=== PATIENT | female | born 1935 | race Caucasian/White ===

== ENCOUNTER 2017-07-08 14:40 | Observation (INO) | payer MEDICARE, BC ==
[2017-07-08] MEDS ORDERED: Sodium Chloride 0.9% 5 ML Syringe FLUSH PRN (14:50)
--- NOTE | 2017-07-08 15:06 | EDM.PDOC ---
ED HPI GENERAL MEDICAL PROBLEM - General Chief Complaint: Upper Extremity Injury/Pain Stated Complaint: left arm pain Time Seen by Provider: 07/08/17 14:50 Source of Information: Reports: Patient History Limitations: Reports: No Limitations - History of Present Illness INITIAL COMMENTS - FREE TEXT/NARRATIVE: PT STATES AT APPROX 0600 TODAY SHE DEVELOPED LEFT UPPER EXTREMITY DISCOMFORT THAT HAS PERSISTED ALL DAY. TOOK BP AND NOTICED IT WAS ELEVATE AT 180'S SYSTOLIC. CALL EMS AND WAS TRANSPORTED TO ER. EMS STRIP SHOWS PACEMAKER. DENIES CP, SOB, BAY, N/V, ABD PAIN, NECK PAIN OR TRAUMA. ADMITS TO EXCESSIVE CLEANING AND VACUUMING YESTERDAY. Duration: Hour(s): Location: Reports: Upper Extremity, Left Quality: Reports: Ache Severity: Mild Improves with: Reports: None Worsens with: Reports: None Associated Symptoms: Reports: No Other Symptoms Treatments COUNTER TENDER: Reports: Aspirin Left Arm Pain Score (Numeric/FACES): 3 - Related Data Allergies Allergy/AdvReac Type Severity Reaction Status Date / Time Anesthetics - Lucy Type- Allergy Edema Verified 07/08/17 14:56 Parabens [Anesthetics - Lucy Type] hydromorphone HCl Allergy Lightheaded Verified 07/08/17 14:56 [From Dilaudid] ness prochlorperazine edisylate Allergy Bronchospas Verified 07/08/17 14:56 [From Compazine] ms prochlorperazine maleate Allergy Bronchospas Verified 07/08/17 14:56 [From Compazine] ms propoxyphene HCl Allergy Nausea and Verified 07/08/17 14:56 [From Darvon] Vomiting Home Meds: Home Meds Aspirin [Ecotrin] 325 mg PO DAILY 05/02/14 [History] Calcium Carbonate/Vitamin D3 [Calcium 500-Vit D3 200 Tablet] 1 tab PO DAILY [History] Cyclobenzaprine [Flexeril] 10 mg PO DAILY PRN 05/02/14 [History] Furosemide [Lasix] 40 mg PO DAILY 05/02/14 [History] Lisinopril 20 mg PO DAILY 05/02/14 [History] Multivitamin [One Daily Multivitamin] 1 tab PO DAILY 05/02/14 [History] Omeprazole 20 mg PO DAILY 05/02/14 [History] Promethazine [Phenergan] 0.2 ml TOP ASDIRECTED PRN 05/02/14 [History] oxyCODONE HCl/Acetaminophen [Percocet 5-325 mg Tablet] 1 tab PO DAILY PRN [History] Morphine PF [Infumorph] 6.117 mg ITHECAL DAILY 05/03/14 [History] Carvedilol [Coreg] 3.125 mg PO BID 05/06/14 [History] LORazepam [Ativan] 0.25 mg PO TID PRN #30 tablet 05/09/14 [Rx] Potassium Chloride [Klor-Con 10] 10 meq PO DAILY 07/08/17 [History] Social & Family History - Alcohol Use Days Per Week of Alcohol Use: 0 - Recreational Drug Use Recreational Drug Use: No Review of Systems - Review of Systems Review Of Systems: ROS reveals no pertinent complaints other than HPI. Constitutional: Reports: No Symptoms Eyes: Reports: No Symptoms Ears: Reports: No Symptoms Nose: Reports: No Symptoms Mouth/Throat: Reports: No Symptoms Respiratory: Reports: No Symptoms GI/Abdominal: Reports: No Symptoms 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: Reports: No Symptoms Musculoskeletal: Reports: Arm Pain Skin: Reports: No Symptoms Neurological: Reports: No Symptoms Psychiatric: Reports: No Symptoms ED EXAM, GENERAL - Physical Exam Exam: See Below Exam Limited By: No Limitations General Appearance: Alert, WD/WN, No Apparent Distress Eye Exam: Bilateral Eye: Normal Inspection Nose: Normal Inspection, Normal Mucosa, No Blood Throat/Mouth: Normal Inspection, Normal Oropharynx, No Airway Compromise Head: Atraumatic, Normocephalic Neck: Normal Inspection, Supple, Full Range of Motion Respiratory/Chest: No Respiratory Distress, Lungs Clear, Normal Breath Sounds, No Accessory Muscle Use, Chest Non-Tender Cardiovascular: Normal Peripheral Pulses, Regular Rate, Rhythm, No JVD, No Murmur GI/Abdominal: Normal Bowel Sounds, Soft, Non-Tender, No Organomegaly, No Distention, No Abnormal Bruit, No Mass Back Exam: Normal Inspection. No: CVA Tenderness (L), CVA Tenderness (R) Extremities: Normal Inspection, Normal Range of Motion, Non-Tender, Pedal Edema (BILAT 2+ OF CHRONIC NATURE) Neurological: Alert, Oriented, CN II-XII Intact, Normal Cognition, No Motor/ Sensory Deficits Psychiatric: Normal Affect, Normal Mood Skin Exam: Warm, Dry, Intact, Normal Color, No Rash Lymphatic: No Adenopathy EKG INTERPRETATION EKG Date: 07/08/17 Time: 14:50 Comparison: No Change EKG Interpretation Comments: paced rythm Course - Vital Signs Last Recorded V/S: Last Vital Signs Temp 99.2 F 07/08/17 14:47 Pulse 91 07/08/17 14:47 Resp 20 07/08/17 14:47 BP 171/63 H 07/08/17 14:47 Pulse Ox 94 L 07/08/17 14:47 - Orders/Labs/Meds Orders: Active Orders 24 hr Category Date Time Status Cardiac Monitoring [RC] . DIRECTED Care 07/08/17 14:50 Ordered EKG Documentation Completion [RC] ASDIRECTED Care 07/08/17 14:51 Ordered Peripheral IV Care [RC] . DIRECTED Care 07/08/17 14:51 Ordered Chest 1V Frontal [CR] Stat Exams 07/08/17 14:51 Ordered B-TYPE NATRIURETIC PEPTIDE,BNP [CHEM] Stat Lab 07/08/17 14:50 Ordered CBC WITH AUTO DIFF [HEME] Stat Lab 07/08/17 14:50 Ordered COMPREHENSIVE METABOLIC PN,CMP [CHEM] Stat Lab 07/08/17 14:51 Ordered INR,PT,PROTHROMBIN TIME [COAG] Stat Lab 07/08/17 14:50 Ordered MAGNESIUM [CHEM] Stat Lab 07/08/17 14:50 Ordered PTT,PARTIAL THROMBOPLSTIN TIME [COAG] Stat Lab 07/08/17 14:50 Ordered TROPONIN I [CHEM] Stat Lab 07/08/17 14:50 Ordered Sodium Chloride 0.9% [Syrex Flush] Med 07/08/17 14:50 Ordered 5 ml FLUSH Q8HR PRN Peripheral IV Insertion Adult [OM.PC] Stat Oth 07/08/17 14:50 Ordered EKG 12 Lead [EK] Stat Ther 07/08/17 14:51 Ordered - Radiology Interpretation Free Text/Narrative:: CXR SHOWS NODULE IN LEFT LUNG BUT HAS BEEN ADDRESSED WITH CT IN APRIL 2017 - Re-Assessments/Exams Free Text/Narrative Re-Assessment/Exam: 07/08/17 16:07 PT AFEBRILE, NONTOXIC APPEARING, VSS, NO CHEST PAIN AND LUE DISCOMFORT MOSTLY RESOLVED. DISCUSSED CASE WITH DR CRAIG. WILL ADMIT INPATIENT AND FOLLOW Departure - Departure Time of Disposition: 16:08 Disposition: Admitted As Inpatient 64 Condition: Good Clinical Impression: Elevated troponin level Chest pain Qualifiers: Chest pain type: unspecified Qualified Code(s): R07.9 - Chest pain, unspecified - Discharge Information Referrals: Erin Marcus MD [Primary Care Provider] - - My Orders Last 24 Hours: My Active Orders 07/08/17 14:50 Cardiac Monitoring [RC] . DIRECTED B-TYPE NATRIURETIC PEPTIDE,BNP [CHEM] Stat CBC WITH AUTO DIFF [HEME] Stat INR,PT,PROTHROMBIN TIME [COAG] Stat MAGNESIUM [CHEM] Stat PTT,PARTIAL THROMBOPLSTIN TIME [COAG] Stat TROPONIN I [CHEM] Stat Sodium Chloride 0.9% [Syrex Flush] 5 ml FLUSH Q8HR PRN Peripheral IV Insertion Adult [OM.PC] Stat 07/08/17 14:51 EKG Documentation Completion [RC] ASDIRECTED Peripheral IV Care [RC] . DIRECTED Chest 1V Frontal [CR] Stat COMPREHENSIVE METABOLIC PN,CMP [CHEM] Stat EKG 12 Lead [EK] Stat - Assessment/Plan Last 24 Hours: My Active Orders 07/08/17 14:50 Cardiac Monitoring [RC] . DIRECTED B-TYPE NATRIURETIC PEPTIDE,BNP [CHEM] Stat CBC WITH AUTO DIFF [HEME] Stat INR,PT,PROTHROMBIN TIME [COAG] Stat MAGNESIUM [CHEM] Stat PTT,PARTIAL THROMBOPLSTIN TIME [COAG] Stat TROPONIN I [CHEM] Stat Sodium Chloride 0.9% [Syrex Flush] 5 ml FLUSH Q8HR PRN Peripheral IV Insertion Adult [OM.PC] Stat 07/08/17 14:51 EKG Documentation Completion [RC] ASDIRECTED Peripheral IV Care [RC] . DIRECTED Chest 1V Frontal [CR] Stat COMPREHENSIVE METABOLIC PN,CMP [CHEM] Stat EKG 12 Lead [EK] Stat Assessment:: CHEST PAIN / ELEVATED TROPONIN Plan: ADMIT INPATIENT
[2017-07-08 15:40] LABS: CHLORIDE,CL 106 mmol/L (98-115); SODIUM,NA 141 mmol/L (136-145)
--- NOTE | 2017-07-08 19:16 | PCM.HP ---
H&P History of Present Illness - General Date of Service: 07/08/17 Admit Problem/Dx: Admission Diagnosis/Problem Admission Diagnosis/Problem Elevated troponin Source of Information: Patient, Old Records History Limitations: Reports: No Limitations - History of Present Illness Initial Comments - Free Text/Narative: Mrs. Clemens is an 82yoF with a history significant for chronic systolic and diastolic heart failure, hx bradycardia s/p pacemaker placement, HTN, HLD, obesity, and chronic back and shoulder pain secondary to osteoarthritis, who was in her usual state of health until this morning when she noticed dull left upper extremity pain. Due to feeling so well the past few days, she had been doing quite a bit of housework, including scrubbing the floors and vacuuming. She is ambidextrous and uses both hands fairly evenly. After awakening and starting her day, she noticed a "dull ache" in her left arm and forearm that was 2-3/10 in severity. She thought this was probably because she overdid it the day before, but then took her blood pressure and noticed it was around 160 systolic and became a bit anxious. Because she and her don't drive much , she initially thought she could wait until their son, who lives with them, got home. After thinking some more, she became a bit more anxious and decided to call 911 and was subsequently transported to the [facility] ED for evaluation. In the ED, she was noted to have an initially elevated BP at 161/81 but otherwise normal VS, EKG showing a paced rhythm, and work-up was notable for a mildly elevated troponin at 0.10. CXR noted the previously known left lung nodule and hypoventilatory changes, but no acute abnormality. She was given ASA 324mg and IV placed. Left Arm Pain Score (Numeric/FACES): 1 - Related Data Allergies/Adverse Reactions: Allergies Allergy/AdvReac Type Severity Reaction Status Date / Time Anesthetics - Lucy Type- Allergy Edema Verified 07/08/17 14:56 Parabens [Anesthetics - Lucy Type] hydromorphone HCl Allergy Lightheaded Verified 07/08/17 14:56 [From Dilaudid] ness prochlorperazine edisylate Allergy Bronchospas Verified 07/08/17 14:56 [From Compazine] ms prochlorperazine maleate Allergy Bronchospas Verified 07/08/17 14:56 [From Compazine] ms propoxyphene HCl Allergy Nausea and Verified 07/08/17 14:56 [From Darvon] Vomiting Home Medications: Home Meds Aspirin [Ecotrin] 325 mg PO DAILY 05/02/14 [History] Calcium Carbonate/Vitamin D3 [Calcium 500-Vit D3 200 Tablet] 1 tab PO DAILY [History] Cyclobenzaprine [Flexeril] 10 mg PO DAILY PRN 05/02/14 [History] Furosemide [Lasix] 40 mg PO DAILY 05/02/14 [History] Lisinopril 20 mg PO DAILY 05/02/14 [History] Multivitamin [One Daily Multivitamin] 1 tab PO DAILY 05/02/14 [History] Omeprazole 20 mg PO DAILY PRN 05/02/14 [History] Promethazine [Phenergan] 0.2 ml TOP ASDIRECTED PRN 05/02/14 [History] oxyCODONE HCl/Acetaminophen [Percocet 5-325 mg Tablet] 1 tab PO DAILY PRN [History] Morphine PF [Infumorph] 6.117 mg ITHECAL DAILY 05/03/14 [History] Carvedilol [Coreg] 3.125 mg PO DAILY 05/06/14 [History] LORazepam [Ativan] 0.25 mg PO TID PRN #30 tablet 05/09/14 [Rx] Potassium Chloride [Klor-Con 10] 10 meq PO DAILY 07/08/17 [History] Past Medical History HEENT History: Reports: Cataract, Impaired Vision Cardiovascular History: Reports: Heart Failure, Hypertension, Pacemaker Gastrointestinal History: Reports: Chronic Constipation, GERD Musculoskeletal History: Reports: Arthritis, Back Pain, Chronic, Osteoarthritis , Osteoporosis Hematologic History: Reports: Blood Transfusion(s) - Infectious Disease History Infectious Disease History: Reports: Chicken Pox, Measles, Mumps, Pertussis ( Whooping Cough), Rubella, Scarlet Fever, Shingles - Past Surgical History Cardiovascular Surgical History: Reports: Other (See Below) Other Cardiovascular Surgeries/Procedures: PACEMAKER GI Surgical History: Reports: Appendectomy, Cholecystectomy, Colonoscopy Female Surgical History: Reports: Hysterectomy Musculoskeletal Surgical History: Reports: Hip Replacement, Knee Replacement, Shoulder Replacement Other Musculoskeletal Surgeries/Procedures:: REVERSE SHOULDERS, BACK SURGERIES x3 Social & Family History - Family History Other Family History: Mother of a blood clot. Father of a heart attack. Sister of CLL and multiple myeloma. 1 brother of congenital heart disease. 1 brother of an aortic aneurysm. 4 children healthy. - Tobacco Use Smoking Status *Q: Never Smoker - Caffeine Use Caffeine Use: Reports: Coffee - Alcohol Use Days Per Week of Alcohol Use: 0 - Recreational Drug Use Recreational Drug Use: No H&P Review of Systems - Review of Systems: Review Of Systems: See Below General: Denies: Fever, Chills, Malaise, Weakness, Fatigue, Decreased Appetite, Weight Loss, Weight Gain HEENT: Reports: Post Nasal Drip (nightly for the past few weeks), Sinus Congestion (nightly for the past few weeks). Denies: Headaches, Visual Changes Pulmonary: Denies: Shortness of Breath, Pleuritic Chest Pain, Cough, Sputum, Hemoptysis Cardiovascular: Denies: Chest Pain, Palpitations, Dyspnea on Exertion, Edema, Lightheadedness Gastrointestinal: Denies: Abdominal Pain, Constipation, Diarrhea, Decreased Appetite, Nausea, Vomiting 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: Denies: Dysuria, Frequency Musculoskeletal: Reports: Neck Pain (chronic, bilateral), Shoulder Pain (chronic , bilateral), Back Pain (chronic, diffuse). Denies: Hand Pain Skin: Reports: No Symptoms Psychiatric: Denies: Confusion, Depression, Anxiety Neurological: Denies: Dizziness, Headache, Numbness, Paresthesia, Trouble Speaking, Difficulty Walking, Weakness, Change in Speech, Gait Disturbance Hematologic/Lymphatic: Reports: No Symptoms Immunologic: Reports: No Symptoms Exam - Exam Exam: See Below - Vital Signs Vital Signs: Last Vital Signs Temp 37.2 C 07/08/17 16:15 Pulse 87 07/08/17 16:15 Resp 18 07/08/17 16:15 BP 146/57 H 07/08/17 16:15 Pulse Ox 92 L 07/08/17 16:15 Weight: 79.832 kg - Exam General: Alert, Oriented, Cooperative HEENT: Conjunctiva Clear, EOMI, Hearing Intact, Mucosa Moist & [place], Nares Patent, Pupils Equal, Pupils Reactive, Other (Mild postnasal drip) Neck: Supple, Trachea Midline. No: Lymphadenopathy, JVD Lungs: Normal Respiratory Effort, Other (CTAB except for mildly decreased breath sounds in the POLI). No: Crackles, Rales, Rhonchi, Wheezing Cardiovascular: Regular Rate, Regular Rhythm, Normal S1, Normal S2, Systolic Murmur (1/6 systolic murmur loudest at LUSB without radiation) GI/Abdominal Exam: Normal Bowel Sounds, Soft, Non-Tender Back Exam: Normal Inspection Extremities: Normal Inspection, No Pedal Edema, Normal Capillary Refill Peripheral Pulses: 2+: Radial (L), Radial (R), Posterior Tibial (L), Posterior Tibial (R), Dorsalis Pedis (L), Dorsalis Pedis (R) Skin: Warm, Dry, Intact, Other (Pacemaker in place in left upper chest. Well healed incisions of back and abdomen.). No: Rash Neurological: Other (No focal deficits) Psychiatric: Alert, Normal Affect, Normal Mood - Patient Data Result Diagrams: 07/08/17 15:00 07/08/17 15:00 EKG INTERPRETATION EKG Interpretation Comments: EKG from EMS and ED reviewed showing paced rhythm. *Q Meaningful Use (ADM) - VTE *Q VTE Criteria *Q: - Stroke *Q Stroke Criteria *Q: - AMI *Q AMI Criteria *Q: Problem List Initiated/Reviewed/Updated: Yes Orders Last 24hrs: Active Orders 24 hr Category Date Time Status Patient Status [ADT] Routine ADT 07/08/17 17:41 Ordered Up With Assistance [RC] ASDIRECTED Care 07/08/17 18:50 Ordered Heart Healthy Diet [DIET] Diet 07/09/17 Breakfast Ordered TROPONIN I [CHEM] Routine Lab 07/08/17 21:00 Ordered Aspirin [Ecotrin] Med 07/09/17 09:00 Ordered 325 mg PO DAILY Calcium Carbonate/Vitamin D3 [Calcium 500-Vit D3 200 Med 07/09/17 09:00 Ordered Tablet] 1 tab PO DAILY Carvedilol [Coreg] Med 07/09/17 09:00 Ordered 3.125 mg PO DAILY Furosemide [Lasix] Med 07/09/17 09:00 Ordered 40 mg PO DAILY Lisinopril [Lisinopril] Med 07/09/17 09:00 Ordered 20 mg PO DAILY Morphine PF [Infumorph] Med 07/09/17 09:00 Ordered 6.117 mg ITHECAL DAILY Multivitamin [One Daily Multivitamin] Med 07/09/17 09:00 Ordered 1 tab PO DAILY Potassium Chloride [Klor-Con 10] Med 07/09/17 09:00 Ordered 10 meq PO DAILY Medication Orders Non-Formulary Medication (Aspirin [Ecotrin]) 325 mg PO DAILY KAROL Non-Formulary Medication (Calcium Carbonate/Vitamin D3 [Calcium 500-Vit D3 200 Tablet]) 1 tab PO DAILY KAROL Non-Formulary Medication (Carvedilol [Coreg]) 3.125 mg PO DAILY KAROL Non-Formulary Medication (Furosemide [Lasix]) 40 mg PO DAILY KAROL Non-Formulary Medication (Lisinopril [Lisinopril]) 20 mg PO DAILY KAROL Non-Formulary Medication (Morphine Pf [Infumorph]) 6.117 mg ITHECAL DAILY KAROL Non-Formulary Medication (Multivitamin [One Daily Multivitamin]) 1 tab PO DAILY KAROL Non-Formulary Medication (Potassium Chloride [Klor-Con 10]) 10 meq PO DAILY KAROL Sodium Chloride (Syrex Flush) 5 ml FLUSH Q8HR PRN PRN Reason: Keep Vein Open Assessment/Plan Comment:: Mrs. Clemens is an 82yoF with a history significant for chronic systolic and diastolic heart failure, hx bradycardia s/p pacemaker placement, HTN, obesity, and chronic back and shoulder pain secondary to osteoarthritis being admitted for elevated troponin. Hospitalization problems: # Elevated troponin: Initial troponin 0.10. EKG with paced rhythm. Presentation with dull LUE pain. She has no history of CAD, but has risk factors of heart failure, HTN, HLD, and obesity. COOKIE score = 2 (age and ASA use). DDx includes NSTEMI, demand ischemia in the setting of hypertension, or less likely recent increased exertion resulting in elevated enzymes. She has no evidence of heart failure, respiratory symptoms to suggest pulmonary-induced non-coronary ischemia , or other precipitants of myocardial injury without ischemia. Will trend troponin q6h and monitor on telemetry. Continue ASA, BB, and ACEI. # LUE pain: Onset approximately 12 hours ago. DDx favors atypical chest pain related to NSTEMI vs. musculoskeletal pain in the setting of recent overuse and chronic osteoarthritis of the neck, back, and shoulders. She now states it is 1/ 10 in intensity and declines therapy. # HTN: Initially elevated in the 160s systolic, but now maintained in the 140s/ 50s. Continue BB, ACEI, furosemide. # Sinus congestion: Likely related to seasonal allergies, with symptoms present every evening for the past several weeks. Declines therapy at this time. Chronic conditions: # Chronic systolic and diastolic heart failure: Fluid neutral with no evidence of acute exacerbation. Continue outpatient medications. # Hx bradycardia s/p pacemaker placement: EKG with appropriate pacing. Continue on telemetry. # Chronic musculoskeletal pain: Continue morphine pump. Hospitalization details: # FEN: No IVF. Electrolytes normal; continue KCl. Cardiac diet. # PPX: DVT ppx with ambulation. # Code status: FULL CODE. # Emergency contact: Cooper Clemens, . # Disposition: Admit to observation status. If troponin downtrends an no acute concerns arise, anticipate discharge tomorrow morning.
[2017-07-09 06:35] VITALS: BP 113/57
[2017-07-09] MEDS ORDERED: Multivitamins with Minerals/Iron/Folic Acid/Lycopene Tab PO SCH (09:00)
[2017-07-09] MEDS ORDERED: [UNRECOGNIZED DRUG - REMARK] ITHECAL SCH (09:00)
[2017-07-09] MEDS ORDERED: Potassium Chloride 10 MEQ Tab.ER PO SCH (09:00)
[2017-07-09] MEDS ORDERED: Furosemide 40 MG Tab PO SCH (09:00)
[2017-07-09] MEDS ORDERED: Carvedilol 6.25 MG Tab PO SCH (09:00)
[2017-07-09] MEDS ORDERED: Calcium Citrate/Vitamin D3 315 MG-250 Unit Tab PO SCH (09:00)
[2017-07-09] MEDS ORDERED: Aspirin 325 MG Tab.EC PO SCH (09:00)
[2017-07-09] MEDS ORDERED: Lisinopril 20 MG Tab PO SCH (09:00)
--- NOTE | 2017-07-09 11:47 | PCM.DCSUM1 ---
Discharge Summary - Hospital Course Free Text/Narrative:: Mrs. Clemens is an 82-year-old female with a history significant for chronic systolic and diastolic heart failure, history of bradycardia status post pacemaker placement, hypertension, hyperlipidemia, obesity, and chronic back and shoulder pain secondary to osteoarthritis, who presented to the emergency department with left arm pain for which evaluation was notable for a mildly elevated troponin at 0.10 and she was admitted under observation status for trending and cardiac monitoring. Other evaluation and workup was notable for an EKG with paced rhythm, chest x-ray without acute change, and no evidence of heart failure or respiratory symptoms to suggest pulmonary-induced non-coronary ischemia. She has a strong history of chronic musculoskeletal pain of her neck , back, and bilateral shoulders for which she is on a continuous morphine pump and she admitted to increase use of her bilateral arms in the 2 days prior to presentation. Troponin was trended every 6 hours and noted to decrease to the normal range x2. She denied any left upper extremity or chest pain following admission and she stated she was in her usual state of health on the morning of discharge. Telemetry was without abnormalities. She was continued on aspirin, beta merlin, and DENI inhibitor. She has a prior intolerance of statins and declined starting this during her hospitalization. - Discharge Data Discharge Date: 07/09/17 Discharge Disposition: Home, Self-Care 01 Condition: Good - Patient Instructions Diet: Heart Healthy Diet Activity: As Tolerated Showering/Bathing: May Shower Notify Provider of: Increased Pain, Nausea and/or Vomiting Other/Special Instructions: Call the clinic Tuesday to schedule follow-up with Gardenia or myself next week. If arm pain, chest pain, shortness of breath, or other concerns arise, come into the clinic or emergency department sooner. - Discharge Plan Home Medications: Home Meds Aspirin [Ecotrin] 325 mg PO DAILY 05/02/14 [History] Calcium Carbonate/Vitamin D3 [Calcium 500-Vit D3 200 Tablet] 1 tab PO DAILY [History] Cyclobenzaprine [Flexeril] 10 mg PO DAILY PRN 05/02/14 [History] Furosemide [Lasix] 40 mg PO DAILY 05/02/14 [History] Lisinopril 20 mg PO DAILY 05/02/14 [History] Multivitamin [One Daily Multivitamin] 1 tab PO DAILY 05/02/14 [History] Omeprazole 20 mg PO DAILY PRN 05/02/14 [History] Promethazine [Phenergan] 0.2 ml TOP ASDIRECTED PRN 05/02/14 [History] oxyCODONE HCl/Acetaminophen [Percocet 5-325 mg Tablet] 1 tab PO DAILY PRN [History] Morphine PF [Infumorph] 6.117 mg ITHECAL DAILY 05/03/14 [History] Carvedilol [Coreg] 3.125 mg PO DAILY 05/06/14 [History] LORazepam [Ativan] 0.25 mg PO TID PRN #30 tablet 05/09/14 [Rx] Potassium Chloride [Klor-Con 10] 10 meq PO DAILY 07/08/17 [History] Forms: ED Department Discharge Referrals: Gardenia Franco NP [Nurse Practitioner] - Erin Marcus MD [Primary Care Provider] - - Discharge Summary/Plan Comment DC Time >30 min.: Yes Discharge Summary/Plan Comment: Continue home medications without changes as well as heart healthy diet. Follow-up with Dr. Erin Marcus, Gardenia Franco, YUSUF, or myself in 5-7 days. Outpatient recommendations: Consider statin initiation and stress test. Discussed return precautions, including recurrent left upper extremity or chest pain, shortness of breath, or other concerning symptoms. - General Info Subjective Update: Mrs. Clemens states she feels great this morning and has no concerns. She denies any current pain and also states that she has not had the onset of any untoward symptoms since admission. In particular, she denies any fever, chest pain, shortness of breath, palpitations. - Patient Data Vitals - Most Recent: Last Vital Signs Temp 36.6 C 07/09/17 06:35 Pulse 63 07/09/17 06:35 Resp 18 07/09/17 06:35 BP 113/57 L 07/09/17 06:35 Pulse Ox 94 L 07/09/17 06:35 Weight - Most Recent: 79.832 kg I&O - Last 24 hours: Intake & Output 07/08/17 07/09/17 07/09/17 22:59 06:59 14:59 Intake Total 100 150 Output Total 300 Balance -200 150 Lab Results - Last 24 hrs: Laboratory Results - last 24 hr 07/08/17 07/09/17 Range/Units 21:30 07:00 Creatine Kinase 75 (26-276) U/L CK-MB (CK-2) 1.10 (0.00-4.30) ng/mL Troponin I 0.07 0.07 (0.00-0.070) ng/mL Med Orders - Current: Current Medications Discontinued Medications Aspirin (Ecotrin) 325 mg PO DAILY [facility] Calcium Citrate (Calcium Citrate + D) 2 tab PO DAILY [facility] Carvedilol (Coreg) 3.125 mg PO DAILY KAROL Furosemide (Lasix) 40 mg PO DAILY [facility] Lisinopril (Prinivil) 20 mg PO DAILY [facility] Multivitamins/Minerals (Centrum) 1 tab PO DAILY [facility] Non-FormMorphine Pf [Infumorph] 6. 117 Mg) 6.117 mg ITHECAL DAILY [facility] Potassium Chloride (Klor-Con 10) 10 meq PO DAILY [facility] Sodium Chloride (Syrex Flush) 5 ml FLUSH Q8HR PRN PRN Reason: Keep Vein Open *Q Meaningful Use (DIS) - VTE *Q VTE Criteria *Q: - Stroke *Q Stroke Criteria *Q: - AMI *Q AMI Criteria *Q:
== END 2017-07-09 10:35 | disposition home or self-care (01) ==
LOC: KA.ED 14:40 → KA.MS 16:09 → INTOOBSV 16:09
PROVIDERS: ADMIT Physician Assistant Surgical; ATTEND Family Medicine
DX: M79.602 Pain in left arm (principal); R79.89 Other specified abnormal findings of blood chemistry; I11.0 Hypertensive heart disease with heart failure; I50.42 Chronic combined systolic (congestive) and diastolic (congestive) heart failure; G89.29 Other chronic pain; M79.1 Myalgia; E78.5 Hyperlipidemia, unspecified; E66.9 Obesity, unspecified; M19.019 Primary osteoarthritis, unspecified shoulder; M81.0 Age-related osteoporosis without current pathological fracture; K21.9 Gastro-esophageal reflux disease without esophagitis; Z79.82 Long term (current) use of aspirin; Z79.899 Other long term (current) drug therapy; Z88.4 Allergy status to anesthetic agent; Z88.5 Allergy status to narcotic agent; Z88.8 Allergy status to other drugs, medicaments and biological substances; Z95.0 Presence of cardiac pacemaker; Z90.49 Acquired absence of other specified parts of digestive tract; Z90.710 Acquired absence of both cervix and uterus; Z96.619 Presence of unspecified artificial shoulder joint; Z96.649 Presence of unspecified artificial hip joint; Z96.659 Presence of unspecified artificial knee joint; Z98.890 Other specified postprocedural states
CPT/HCPCS: 36415; 71010; 80053; 81001; 82550; 82553; 83735; 83880; 84484; 85025; 85610; 85730; 93005; 99284; G0378

== ENCOUNTER 2017-07-22 00:35 | Emergency (ER) | payer MEDICARE, BC ==
--- NOTE | 2017-07-22 01:24 | EDM.PDOC ---
ED HPI GENERAL MEDICAL PROBLEM - General Chief Complaint: Respiratory Problem Stated Complaint: SOB Time Seen by Provider: 07/22/17 00:59 Source of Information: Reports: Patient History Limitations: Reports: No Limitations - History of Present Illness INITIAL COMMENTS - FREE TEXT/NARRATIVE: Patient presents via ambulance for evaluation after an episode of dyspnea that started about 1.5 hours ago and lasted 20 minutes then resolved spontaneously. She had gone to bed a little before 2200 and then awoke a little before midnight feeling short of breath. She got up and went to the bathroom. She denies any chest pain or heaviness, arm, shoulder, neck or jaw pain, diaphoresis , lightheadedness, vision changes. She says she had arm pain about two weeks ago and came in to ER. Everything checked out okay. She has a pacemaker that was placed 10 months ago, but denies any history of ND, stents or other heart disease. Earlier today she had a pre-op physical for cataract surgery next week. She is feeling completely normal now for the past hour. The symptoms had resolved before the ambulance arrived but she decided she wanted to come in to get checked out since they were there. - Related Data Allergies Allergy/AdvReac Type Severity Reaction Status Date / Time Anesthetics - Lucy Type- Allergy Edema Verified 07/22/17 01:06 Parabens [Anesthetics - Lucy Type] hydromorphone HCl Allergy Lightheaded Verified 07/22/17 01:06 [From Dilaudid] ness prochlorperazine edisylate Allergy Bronchospas Verified 07/22/17 01:06 [From Compazine] ms prochlorperazine maleate Allergy Bronchospas Verified 07/22/17 01:06 [From Compazine] ms propoxyphene HCl Allergy Nausea and Verified 07/22/17 01:06 [From Darvon] Vomiting Home Meds: Home Meds Aspirin [Ecotrin] 325 mg PO DAILY 05/02/14 [History] Calcium Carbonate/Vitamin D3 [Calcium 500-Vit D3 200 Tablet] 1 tab PO DAILY [History] Cyclobenzaprine [Flexeril] 10 mg PO DAILY PRN 05/02/14 [History] Furosemide [Lasix] 40 mg PO DAILY 05/02/14 [History] Lisinopril 20 mg PO DAILY 05/02/14 [History] Multivitamin [One Daily Multivitamin] 1 tab PO DAILY 05/02/14 [History] Omeprazole 20 mg PO DAILY PRN 05/02/14 [History] Promethazine [Phenergan] 0.2 ml TOP ASDIRECTED PRN 05/02/14 [History] Morphine PF [Infumorph] 6.117 mg ITHECAL DAILY 05/03/14 [History] Carvedilol [Coreg] 3.125 mg PO DAILY 05/06/14 [History] LORazepam [Ativan] 0.25 mg PO TID PRN #30 tablet 05/09/14 [Rx] Potassium Chloride [Klor-Con 10] 10 meq PO DAILY 07/08/17 [History] Past Medical History HEENT History: Reports: Cataract, Impaired Vision Cardiovascular History: Reports: Heart Failure, Hypertension, Pacemaker Gastrointestinal History: Reports: Chronic Constipation, GERD 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 History: Reports: None 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: Musculoskeletal History: Reports: Arthritis, Back Pain, Chronic, Osteoarthritis , Osteoporosis Hematologic History: Reports: Blood Transfusion(s) - Infectious Disease History Infectious Disease History: Reports: Chicken Pox, Measles, Mumps, Pertussis ( Whooping Cough), Rubella, Scarlet Fever, Shingles - Past Surgical History Cardiovascular Surgical History: Reports: Other (See Below) Other Cardiovascular Surgeries/Procedures: PACEMAKER GI Surgical History: Reports: Appendectomy, Cholecystectomy, Colonoscopy Female Surgical History: Reports: Hysterectomy Musculoskeletal Surgical History: Reports: Hip Replacement, Knee Replacement, Shoulder Replacement Other Musculoskeletal Surgeries/Procedures:: REVERSE SHOULDERS, BACK SURGERIES x3 Social & Family History - Tobacco Use Smoking Status *Q: Never Smoker - Caffeine Use Caffeine Use: Reports: Coffee - Alcohol Use Days Per Week of Alcohol Use: 0 - Recreational Drug Use Recreational Drug Use: No ED ROS GENERAL - Review of Systems Review Of Systems: See Below Constitutional: Reports: Fatigue. Denies: Fever, Chills, Malaise, Weakness, Diaphoresis HEENT: Denies: Vision Change Respiratory: Reports: Shortness of Breath (gone now). Denies: Cough Cardiovascular: Denies: Chest Pain, Edema, Lightheadedness, Syncope GI/Abdominal: Denies: Abdominal Pain, Nausea, Vomiting : Denies: Dysuria Musculoskeletal: Denies: Neck Pain, Shoulder Pain, Arm Pain, Back Pain Skin: Denies: Cyanosis, Jaundice, Mottled, Pallor, Diaphoresis Neurological: Denies: Confusion, Dizziness, Headache, Seizure, Syncope Psychiatric: Denies: Agitation, Anxiety, Confusion ED EXAM, GENERAL - Physical Exam Exam: See Below Exam Limited By: No Limitations General Appearance: Alert, WD/WN, No Apparent Distress Eye Exam: Bilateral Eye: EOMI, Normal Inspection, PERRL Ears: Normal External Exam, Hearing Grossly Normal Nose: Normal Inspection, No Blood Throat/Mouth: Normal Lips, Normal Voice, No Airway Compromise Head: Atraumatic, Normocephalic Neck: Normal Inspection, Supple, Non-Tender, Full Range of Motion. No: Carotid Bruit Respiratory/Chest: No Respiratory Distress, Lungs Clear, Normal Breath Sounds, No Accessory Muscle Use Cardiovascular: Normal Peripheral Pulses, Regular Rate, Rhythm, No Murmur Peripheral Pulses: 2+: Carotid (L), Carotid (R), Radial (L), Radial (R), Posterior Tibial (L), Posterior Tibial (R) GI/Abdominal: Normal Bowel Sounds, Soft, Non-Tender, No Organomegaly Back Exam: No: CVA Tenderness (L), CVA Tenderness (R) Extremities: Normal Inspection, Normal Range of Motion, Non-Tender, No Pedal Edema, Normal Capillary Refill, Other (no calf pain or swelling) Neurological: Alert, Oriented, Normal Cognition, No Motor/Sensory Deficits Psychiatric: Normal Affect, Normal Mood Skin Exam: Warm, Dry, Intact, Normal Color, No Rash Course - Vital Signs Last Recorded V/S: Last Vital Signs Temp 98.5 F 07/22/17 01:20 Pulse 85 07/22/17 01:20 Resp 16 07/22/17 01:20 BP 142/56 H 07/22/17 01:20 Pulse Ox 91 L 07/22/17 01:20 - Orders/Labs/Meds Orders: Active Orders 24 hr Category Date Time Status EKG Documentation Completion [RC] ASDIRECTED Care 07/22/17 01:27 Ordered EKG 12 Lead [EK] Routine Ther 07/22/17 01:26 Ordered Labs: Laboratory Tests 07/22/17 07/22/17 Range/Units 01:50 01:50 WBC 4.6 L (5.0-10.0) 10^3/uL RBC 4.23 (3.80-5.50) 10^6/uL Hgb 13.1 (12.0-16.0) g/dL Hct 38.2 (37.0-47.0) % MCV 90.2 (82.0-92.0) fL MCH 31.0 (27.0-31.0) pg MCHC 34.3 (32.0-36.0) g/dL RDW 13.0 (11.5-14.5) % Plt Count 163 (150-300) 10^3/uL MPV 8.9 (7.4-10.4) fL Neut % (Auto) 49.9 L (50.0-70.0) % Lymph % (Auto) 33.3 (20.0-40.0) % [place] % (Auto) 11.7 H (2.0-8.0) % Eos % (Auto) 4.1 H (1.0-3.0) % Baso % (Auto) 1.0 (0.0-1.0) % Neut # (Auto) 2.4 L (2.5-7.0) 10^3/uL Lymph # (Auto) 1.5 (1.0-4.0) 10^3/uL [place] # (Auto) 0.5 (0.1-0.8) 10^3/uL Eos # (Auto) 0.2 (0.1-0.3) 10^3/uL Baso # (Auto) 0.0 (0.0-0.1) 10^3/uL Sodium 142 (136-145) mmol/L Potassium 4.9 (3.3-5.3) mmol/L Chloride 104 (98-115) mmol/L Carbon Dioxide 33.2 H (21.0-32.0) mmol/L BUN 26 H (6-25) mg/dL Creatinine 0.86 (0.51-1.17) mg/dL Est Cr Clr Drug Dosing 34.98 mL/min Estimated GFR (MDRD) > 60 mL/min Glucose 138 H (70-110) mg/dL Calcium 9.0 (8.7-10.3) mg/dL Troponin I 0.08 H* (0.00-0.070) ng/mL - Re-Assessments/Exams Free Text/Narrative Re-Assessment/Exam: 07/22/17 02:43 EKG is okay. CBC okay. Troponin is 0.08, compared with 0.1, 0.07, 0.07 two weeks ago. She is feeling well and has had no episodes of dyspnea or any other symptoms for the two hours in the ER. Discussed findings and plan with patient. Discharged in stable condition. Departure - Departure Time of Disposition: 02:42 Disposition: Home, Self-Care 01 Condition: Good Clinical Impression: Dyspnea Qualifiers: Dyspnea type: unspecified Qualified Code(s): R06.00 - Dyspnea, unspecified - Discharge Information Forms: ED Department Discharge Additional Instructions: 1. Follow up with your PCP or return to ER if any worsening. - My Orders Last 24 Hours: My Active Orders 07/22/17 01:26 EKG 12 Lead [EK] Routine 07/22/17 01:27 EKG Documentation Completion [RC] ASDIRECTED - Assessment/Plan Last 24 Hours: My Active Orders 07/22/17 01:26 EKG 12 Lead [EK] Routine 07/22/17 01:27 EKG Documentation Completion [RC] ASDIRECTED
[2017-07-22 02:29] LABS: CHLORIDE,CL 104 mmol/L (98-115); SODIUM,NA 142 mmol/L (136-145)
[2017-07-22 04:28] VITALS: BP 137/50
== END 2017-07-22 02:50 | disposition home or self-care (01) ==
LOC: KA.ED 00:35
DX: R06.00 Dyspnea, unspecified (principal); I11.0 Hypertensive heart disease with heart failure; I50.9 Heart failure, unspecified; K21.9 Gastro-esophageal reflux disease without esophagitis; M19.90 Unspecified osteoarthritis, unspecified site; M81.0 Age-related osteoporosis without current pathological fracture; Z95.0 Presence of cardiac pacemaker; Z79.899 Other long term (current) drug therapy; Z88.8 Allergy status to other drugs, medicaments and biological substances; Z79.82 Long term (current) use of aspirin; Z90.49 Acquired absence of other specified parts of digestive tract; Z90.89 Acquired absence of other organs; Z90.710 Acquired absence of both cervix and uterus
CPT/HCPCS: 36415; 80048; 84484; 85025; 93005; 99284; 99285

== ENCOUNTER 2017-08-10 09:55 | Emergency (ER) | payer MEDICARE, BC ==
[2017-08-10 10:50] LABS: CHLORIDE,CL 105 mmol/L (98-115); SODIUM,NA 142 mmol/L (136-145)
[2017-08-10] MEDS ORDERED: Sodium Chloride 0.9% 1,000 ML IV ONE (11:10)
--- NOTE | 2017-08-10 11:54 | EDM.PDOC ---
ED HPI GENERAL MEDICAL PROBLEM - General Chief Complaint: General Stated Complaint: idon't feel good Time Seen by Provider: 08/10/17 10:30 Source of Information: Reports: Patient History Limitations: Reports: No Limitations - History of Present Illness INITIAL COMMENTS - FREE TEXT/NARRATIVE: PT STATES SHE WOKE THIS MORNING NOT FEELING WELL. NOT WELL DESCRIBED. HAD PIECE OF TOST BUT FELT NAUSEOUS SHORTLY AFTER. DID NOT VOMIT. CALLED [facility] AND WAS TOLD THEY COULD GET HER IN THIS AFTERNOON TO BE SEEN. SUGGESTED ER SO THEY CALLED 911. DENIES CP, SOB, COUGH, BAY, VISION CHANGES, ABD PAIN, BOWEL CHANGES OR DYSURIA. Duration: Hour(s): Quality: Reports: Other (DENIES PAIN) Improves with: Reports: None Worsens with: Reports: None Associated Symptoms: Reports: Nausea/Vomiting - Related Data Allergies Allergy/AdvReac Type Severity Reaction Status Date / Time Anesthetics - Lucy Type- Allergy Edema Verified 07/22/17 01:06 Parabens [Anesthetics - Lucy Type] hydromorphone HCl Allergy Lightheaded Verified 07/22/17 01:06 [From Dilaudid] ness prochlorperazine edisylate Allergy Bronchospas Verified 07/22/17 01:06 [From Compazine] ms prochlorperazine maleate Allergy Bronchospas Verified 07/22/17 01:06 [From Compazine] ms propoxyphene HCl Allergy Nausea and Verified 07/22/17 01:06 [From Darvon] Vomiting novacaine Allergy Swollen Uncoded 08/10/17 10:30 Tongue Home Meds: Home Meds Aspirin [Ecotrin] 325 mg PO DAILY 05/02/14 [History] Calcium Carbonate/Vitamin D3 [Calcium 500-Vit D3 200 Tablet] 1 tab PO DAILY [History] Cyclobenzaprine [Flexeril] 10 mg PO DAILY PRN 05/02/14 [History] Furosemide [Lasix] 40 mg PO DAILY 05/02/14 [History] Multivitamin [One Daily Multivitamin] 1 tab PO DAILY 05/02/14 [History] Omeprazole 20 mg PO DAILY PRN 05/02/14 [History] Promethazine [Phenergan] 0.2 ml TOP ASDIRECTED PRN 05/02/14 [History] Morphine PF [Infumorph] 6.117 mg ITHECAL DAILY 05/03/14 [History] Carvedilol [Coreg] 3.125 mg PO DAILY 05/06/14 [History] LORazepam [Ativan] 0.25 mg PO TID PRN #30 tablet 05/09/14 [Rx] Potassium Chloride [Klor-Con 10] 10 meq PO DAILY 07/08/17 [History] Lisinopril [Lisinopril] 5 mg PO DAILY 08/10/17 [History] Magnesium Oxide [Magnesium] 400 mg PO DAILY 08/10/17 [History] Promethazine [Phenergan] 0.5 ml TOP ASDIRECTED 08/10/17 [History] Past Medical History HEENT History: Reports: Cataract, Impaired Vision Cardiovascular History: Reports: Arrhythmia, Heart Failure, Hypertension, Pacemaker Respiratory History: Reports: Other (See Below) Other Respiratory History: nodule in chest Gastrointestinal History: Reports: Chronic Constipation, GERD 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 History: Reports: 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: Musculoskeletal History: Reports: Arthritis, Back Pain, Chronic, Osteoarthritis , Osteoporosis Psychiatric History: Reports: Anxiety Hematologic History: Reports: Blood Transfusion(s) - Infectious Disease History Infectious Disease History: Reports: Chicken Pox, Measles, Mumps, Pertussis ( Whooping Cough), Rubella, Scarlet Fever, Shingles - Past Surgical History Cardiovascular Surgical History: Reports: Other (See Below) Other Cardiovascular Surgeries/Procedures: PACEMAKER Respiratory Surgical History: Reports: Lung Biopsies GI Surgical History: Reports: Appendectomy, Cholecystectomy, Colonoscopy Female Surgical History: Reports: Hysterectomy Neurological Surgical History: Reports: Other (See Below) Other Neurological Surgeries/Procedures: back surgery Musculoskeletal Surgical History: Reports: Hip Replacement, Knee Replacement, Shoulder Replacement Other Musculoskeletal Surgeries/Procedures:: REVERSE SHOULDERS, BACK SURGERIES x3 Social & Family History - Tobacco Use Smoking Status *Q: Never Smoker Second Hand Smoke Exposure: No - Caffeine Use Caffeine Use: Reports: Coffee - Alcohol Use Days Per Week of Alcohol Use: 0 - Recreational Drug Use Recreational Drug Use: No ED ROS GENERAL - Review of Systems Review Of Systems: ROS reveals no pertinent complaints other than HPI. Constitutional: Reports: No Symptoms HEENT: Reports: No Symptoms Respiratory: Reports: No Symptoms Cardiovascular: Reports: No Symptoms Endocrine: Reports: Fatigue GI/Abdominal: Reports: Nausea : Reports: No Symptoms Musculoskeletal: Reports: No Symptoms Skin: Reports: No Symptoms Neurological: Reports: No Symptoms Psychiatric: Reports: No Symptoms Hematologic/Lymphatic: Reports: No Symptoms Immunologic: Reports: No Symptoms ED EXAM, GENERAL - Physical Exam Exam: See Below Exam Limited By: No Limitations General Appearance: Alert, WD/WN, No Apparent Distress Eye Exam: Bilateral Eye: Normal Inspection Nose: Normal Inspection, Normal Mucosa, No Blood Throat/Mouth: Normal Inspection, Normal Oropharynx, No Airway Compromise Head: Atraumatic, Normocephalic Neck: Normal Inspection, Supple Respiratory/Chest: No Respiratory Distress, Lungs Clear, Normal Breath Sounds, No Accessory Muscle Use, Chest Non-Tender Cardiovascular: Regular Rate, Rhythm, No Murmur GI/Abdominal: Normal Bowel Sounds, Soft, Non-Tender, No Organomegaly, No Distention, No Abnormal Bruit, No Mass Back Exam: Normal Inspection. No: CVA Tenderness (L), CVA Tenderness (R) Extremities: Normal Inspection, No Pedal Edema Neurological: Alert, Oriented, CN II-XII Intact, Normal Cognition, No Motor/ Sensory Deficits Psychiatric: Normal Affect, Normal Mood Skin Exam: Warm, Dry, Intact, Normal Color, No Rash Lymphatic: No Adenopathy Course - Vital Signs Last Recorded V/S: Last Vital Signs Temp 99.2 F 08/10/17 10:00 Pulse 89 08/10/17 10:00 Resp 18 08/10/17 10:00 BP 159/59 H 08/10/17 10:00 Pulse Ox 94 L 08/10/17 10:00 - Orders/Labs/Meds Orders: Active Orders 24 hr Category Date Time Status Sodium Chloride 0.9% @ 999 MLS/HR (1000ml) Med 08/10/17 11:10 Ordered Sodium Chloride 0.9% [Normal Saline] 1,000 ml IV .BOLUS Medication Orders Sodium Chloride (Normal Saline) 1,000 mls @ 999 mls/hr IV .BOLUS ONE Stop: 08/10/17 12:10 Last Admin: 08/10/17 11:17 Dose: 999 mls/hr Labs: Laboratory Tests 08/10/17 08/10/17 08/10/17 Range/Units 10:20 10:20 10:20 WBC 4.3 L (5.0-10.0) 10^3/uL RBC 4.57 (3.80-5.50) 10^6/uL Hgb 13.8 (12.0-16.0) g/dL Hct 41.7 (37.0-47.0) % MCV 91.4 (82.0-92.0) fL MCH 30.2 (27.0-31.0) pg MCHC 33.0 (32.0-36.0) g/dL RDW 13.0 (11.5-14.5) % Plt Count 164 (150-300) 10^3/uL MPV 9.0 (7.4-10.4) fL Neut % (Auto) 54.3 (50.0-70.0) % Lymph % (Auto) 33.6 (20.0-40.0) % [place] % (Auto) 7.7 (2.0-8.0) % Eos % (Auto) 4.0 H (1.0-3.0) % Baso % (Auto) 0.4 (0.0-1.0) % Neut # (Auto) 2.4 L (2.5-7.0) 10^3/uL Lymph # (Auto) 1.4 (1.0-4.0) 10^3/uL [place] # (Auto) 0.3 (0.1-0.8) 10^3/uL Eos # (Auto) 0.2 (0.1-0.3) 10^3/uL Baso # (Auto) 0.0 (0.0-0.1) 10^3/uL Sodium 142 (136-145) mmol/L Potassium 3.9 (3.3-5.3) mmol/L Chloride 105 (98-115) mmol/L Carbon Dioxide 29.1 (21.0-32.0) mmol/L BUN 19 (6-25) mg/dL Creatinine 0.77 (0.51-1.17) mg/dL Est Cr Clr Drug Dosing TNP Estimated GFR (MDRD) > 60 mL/min Glucose 130 H (70-110) mg/dL Calcium 8.8 (8.7-10.3) mg/dL Total Bilirubin 0.3 (0.2-1.0) mg/dL AST 29 (15-37) U/L ALT 26 (12-78) U/L Alkaline Phosphatase 78 (46-116) IU/L Troponin I 0.04 (0.00-0.070) ng/mL Total Protein 7.2 (6.4-8.2) g/dL Albumin 3.63 (3.00-4.80) g/dL Specimen Type Urine Color (YELLOW) Urine Appearance (CLEAR) Urine pH (5.0-9.0) Ur Specific [place] (1.005-1.030) Urine Protein (NEGATIVE) mg/dL Urine Glucose (UA) (NEGATIVE) mg/dL Urine Ketones (NEGATIVE) mg/dL Urine Occult Blood (NEGATIVE) Urine Nitrite (NEGATIVE) Urine Bilirubin (NEGATIVE) Urine Urobilinogen (0.2-1.0) E.U./dL Ur Leukocyte Esterase (NEGATIVE) Urine RBC /HPF Urine WBC /HPF Ur Epithelial Cells /LPF Urine Bacteria (NONE TO FEW) /HPF 08/10/17 Range/Units 10:44 WBC (5.0-10.0) 10^3/uL RBC (3.80-5.50) 10^6/uL Hgb (12.0-16.0) g/dL Hct (37.0-47.0) % MCV (82.0-92.0) fL MCH (27.0-31.0) pg MCHC (32.0-36.0) g/dL RDW (11.5-14.5) % Plt Count (150-300) 10^3/uL MPV (7.4-10.4) fL Neut % (Auto) (50.0-70.0) % Lymph % (Auto) (20.0-40.0) % [place] % (Auto) (2.0-8.0) % Eos % (Auto) (1.0-3.0) % Baso % (Auto) (0.0-1.0) % Neut # (Auto) (2.5-7.0) 10^3/uL Lymph # (Auto) (1.0-4.0) 10^3/uL [place] # (Auto) (0.1-0.8) 10^3/uL Eos # (Auto) (0.1-0.3) 10^3/uL Baso # (Auto) (0.0-0.1) 10^3/uL Sodium (136-145) mmol/L Potassium (3.3-5.3) mmol/L Chloride (98-115) mmol/L Carbon Dioxide (21.0-32.0) mmol/L BUN (6-25) mg/dL Creatinine (0.51-1.17) mg/dL Est Cr Clr Drug Dosing Estimated GFR (MDRD) mL/min Glucose (70-110) mg/dL Calcium (8.7-10.3) mg/dL Total Bilirubin (0.2-1.0) mg/dL AST (15-37) U/L ALT (12-78) U/L Alkaline Phosphatase (46-116) IU/L Troponin I (0.00-0.070) ng/mL Total Protein (6.4-8.2) g/dL Albumin (3.00-4.80) g/dL Specimen Type Urinvoid Urine Color Yellow (YELLOW) Urine Appearance Clear (CLEAR) Urine pH 7.0 (5.0-9.0) Ur Specific [place] 1.020 (1.005-1.030) Urine Protein Negative (NEGATIVE) mg/dL Urine Glucose (UA) Negative (NEGATIVE) mg/dL Urine Ketones Negative (NEGATIVE) mg/dL Urine Occult Blood Trace-intact H (NEGATIVE) Urine Nitrite Negative (NEGATIVE) Urine Bilirubin Negative (NEGATIVE) Urine Urobilinogen 0.2 (0.2-1.0) E.U./dL Ur Leukocyte Esterase Negative (NEGATIVE) Urine RBC 0-5 /HPF Urine WBC 0-5 /HPF Ur Epithelial Cells Occasional /LPF Urine Bacteria Not seen (NONE TO FEW) /HPF Meds: Medications Generic Name Dose Route Start Last Admin Trade Name Humbertoq PRN Reason Stop Dose Admin Sodium Chloride 1,000 mls @ 999 mls/hr 08/10/17 11:10 08/10/17 11:17 Normal Saline IV 08/10/17 12:10 999 mls/hr .BOLUS ONE Administration - Re-Assessments/Exams Free Text/Narrative Re-Assessment/Exam: 08/10/17 11:54 PT AFEBRILE, NONTOXIC APPEARING, VSS, FEELS BETTER. ATE TOAST AND DRANK OJ. Departure - Departure Time of Disposition: 11:55 Disposition: Home, Self-Care 01 Condition: Good Clinical Impression: Weakness generalized - Discharge Information Instructions: Fatigue, Nausea, Adult Referrals: Erlandson,Gardenia E, PRODUCT MANAGEMENT MANAGER [Primary Care Provider] - Additional Instructions: FOLLOW UP AT [facility] IN NEXT 1-2 DAYS. RETURN TO ER SOONER IF SYMPTOMS CONTINUE - My Orders Last 24 Hours: My Active Orders 08/10/17 11:10 Sodium Chloride 0.9% @ 999 MLS/HR (1000ml) Sodium Chloride 0.9% [Normal Saline] 1,000 ml IV .BOLUS - Assessment/Plan Last 24 Hours: My Active Orders 08/10/17 11:10 Sodium Chloride 0.9% @ 999 MLS/HR (1000ml) Sodium Chloride 0.9% [Normal Saline] 1,000 ml IV .BOLUS Assessment:: WEAKNESS Plan: F/U WITH PCP
[2017-08-10 11:58] VITALS: BP 145/25
== END 2017-08-10 12:30 | disposition home or self-care (01) ==
LOC: KA.ED 09:55
DX: R53.1 Weakness (principal); I11.0 Hypertensive heart disease with heart failure; I50.9 Heart failure, unspecified; K21.9 Gastro-esophageal reflux disease without esophagitis; M19.90 Unspecified osteoarthritis, unspecified site; M81.0 Age-related osteoporosis without current pathological fracture; F41.9 Anxiety disorder, unspecified; Z90.49 Acquired absence of other specified parts of digestive tract; Z90.710 Acquired absence of both cervix and uterus; Z95.0 Presence of cardiac pacemaker; Z96.649 Presence of unspecified artificial hip joint; Z96.659 Presence of unspecified artificial knee joint; Z96.619 Presence of unspecified artificial shoulder joint; Z79.82 Long term (current) use of aspirin; Z79.899 Other long term (current) drug therapy; Z88.5 Allergy status to narcotic agent; Z88.6 Allergy status to analgesic agent; Z88.8 Allergy status to other drugs, medicaments and biological substances
CPT/HCPCS: 36415; 80053; 81001; 84484; 85025; 96360; 99283; J7030

== ENCOUNTER 2017-09-17 21:33 | Emergency (ER) | payer MEDICARE, BC ==
[2017-09-17] MEDS ORDERED: Ondansetron 4 MG/2 ML SDV IVPUSH ONE (22:22)
[2017-09-17] MEDS ORDERED: Sodium Chloride 0.9% 1,000 ML IV ONE (22:22)
--- NOTE | 2017-09-17 22:33 | EDM.PDOC ---
ED HPI GENERAL MEDICAL PROBLEM - General Chief Complaint: Gastrointestinal Problem Stated Complaint: NAUSEA Time Seen by Provider: 09/17/17 22:09 Source of Information: Reports: Patient History Limitations: Reports: No Limitations - History of Present Illness INITIAL COMMENTS - FREE TEXT/NARRATIVE: Patient brought to ER by son and dtr-n-law with nausea that started about an hour earlier at 2145. She denies vomiting, diarrhea; has had constipation related to her morphine patch for chronic back pain. Denies pain in abdomen, chest, neck, jaw, shoulder and arm. She had a pacemaker placed a year ago in [place] when her heart rate dropped to 22. She had a cholecystectomy 3 years ago and has had occasional nausea before that and after it although her doctor that the nausea would probably not continue after the surgery. She says the nausea tonight isn't really any different than her usual but she was just a little anxious about it and decided to have her son bring her in since he was there visiting and she isn't very comfortable with her driving. Treatments VISUAL SPECIALIST: Reports: Other (see below) Other Treatments VISUAL SPECIALIST: PLO gel - Related Data Allergies Allergy/AdvReac Type Severity Reaction Status Date / Time Anesthetics - Lucy Type- Allergy Edema Verified 09/17/17 21:44 Parabens [Anesthetics - Lucy Type] hydromorphone HCl Allergy Lightheaded Verified 09/17/17 21:44 [From Dilaudid] ness prochlorperazine edisylate Allergy Bronchospas Verified 09/17/17 21:44 [From Compazine] ms prochlorperazine maleate Allergy Bronchospas Verified 09/17/17 21:44 [From Compazine] ms propoxyphene HCl Allergy Nausea and Verified 09/17/17 21:44 [From Darvon] Vomiting novacaine Allergy Swollen Uncoded 08/10/17 10:30 Tongue Home Meds: Home Meds Aspirin [Ecotrin] 325 mg PO DAILY 05/02/14 [History] Calcium Carbonate/Vitamin D3 [Calcium 500-Vit D3 200 Tablet] 1 tab PO DAILY [History] Cyclobenzaprine [Flexeril] 10 mg PO DAILY PRN 05/02/14 [History] Furosemide [Lasix] 40 mg PO DAILY 05/02/14 [History] Multivitamin [One Daily Multivitamin] 1 tab PO DAILY 05/02/14 [History] Omeprazole 20 mg PO DAILY PRN 05/02/14 [History] Promethazine [Phenergan] 0.2 ml TOP ASDIRECTED PRN 05/02/14 [History] Morphine PF [Infumorph] 6.117 mg ITHECAL DAILY 05/03/14 [History] Carvedilol [Coreg] 3.125 mg PO DAILY 05/06/14 [History] LORazepam [Ativan] 0.25 mg PO TID PRN #30 tablet 05/09/14 [Rx] Potassium Chloride [Klor-Con 10] 10 meq PO DAILY 07/08/17 [History] Lisinopril [Lisinopril] 5 mg PO DAILY 08/10/17 [History] Magnesium Oxide [Magnesium] 400 mg PO DAILY 08/10/17 [History] Promethazine [Phenergan] 0.5 ml TOP ASDIRECTED 08/10/17 [History] Past Medical History HEENT History: Reports: Cataract, Impaired Vision Cardiovascular History: Reports: Arrhythmia, Heart Failure, Hypertension, Pacemaker Respiratory History: Reports: Other (See Below) Other Respiratory History: nodule in chest Gastrointestinal History: Reports: Chronic Constipation, GERD 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 History: Reports: None 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: Musculoskeletal History: Reports: Arthritis, Back Pain, Chronic, Osteoarthritis , Osteoporosis Neurological History: Reports: Migraines Psychiatric History: Reports: Anxiety Hematologic History: Reports: Blood Transfusion(s) - Infectious Disease History Infectious Disease History: Reports: Chicken Pox, Measles, Mumps, Pertussis ( Whooping Cough), Shingles - Past Surgical History Cardiovascular Surgical History: Reports: Other (See Below) Other Cardiovascular Surgeries/Procedures: PACEMAKER Respiratory Surgical History: Reports: Lung Biopsies GI Surgical History: Reports: Appendectomy, Cholecystectomy, Colonoscopy Female Surgical History: Reports: Hysterectomy Neurological Surgical History: Reports: Other (See Below) Other Neurological Surgeries/Procedures: back surgery Musculoskeletal Surgical History: Reports: Hip Replacement, Knee Replacement, Shoulder Replacement Other Musculoskeletal Surgeries/Procedures:: REVERSE SHOULDERS, BACK SURGERIES x3 Social & Family History - Family History Family Medical History: Noncontributory - Tobacco Use Smoking Status *Q: Never Smoker Second Hand Smoke Exposure: No - Caffeine Use Caffeine Use: Reports: Coffee - Alcohol Use Days Per Week of Alcohol Use: 0 - Recreational Drug Use Recreational Drug Use: No ED ROS GENERAL - Review of Systems Review Of Systems: See Below Constitutional: Reports: Malaise (just nausea). Denies: Fever, Chills, Weakness , Diaphoresis HEENT: Denies: Ear Pain, Throat Pain Respiratory: Denies: Shortness of Breath, Cough Cardiovascular: Reports: Blood Pressure Problem (she takes meds for it). Denies : Chest Pain, Lightheadedness, Syncope GI/Abdominal: Reports: Constipation, Nausea. Denies: Abdominal Pain, Diarrhea, Vomiting : Denies: Dysuria, Flank Pain Musculoskeletal: Reports: Back Pain (chronic). Denies: Neck Pain, Shoulder Pain , Arm Pain Skin: Denies: Cyanosis, Jaundice, Mottled, Pallor, Diaphoresis Neurological: Denies: Confusion, Dizziness, Seizure, Syncope, Trouble Speaking Psychiatric: Denies: Agitation, Anxiety, Confusion ED EXAM, GI/ABD - Physical Exam Exam: See Below Exam Limited By: No Limitations General Appearance: Alert, WD/WN, No Apparent Distress Eyes: Bilateral: Normal Appearance, EOMI Ears: Normal External Exam, Hearing Grossly Normal Nose: Normal Inspection, No Blood Throat/Mouth: Normal Inspection, Normal Lips, Normal Voice, No Airway Compromise Head: Atraumatic, Normocephalic Neck: Normal Inspection, Supple, Non-Tender, Full Range of Motion. No: Carotid Bruit Respiratory/Chest: No Respiratory Distress, Lungs Clear, Normal Breath Sounds, No Accessory Muscle Use Cardiovascular: Normal Peripheral Pulses, Regular Rate, Rhythm, No Edema, No Gallop, No JVD, No Murmur GI/Abdominal Exam: Normal Bowel Sounds, Soft, Non-Tender, No Organomegaly Back Exam: No: CVA Tenderness (L), CVA Tenderness (R) Extremities: Normal Inspection, Normal Range of Motion, Non-Tender, No Pedal Edema Neurological: Alert, Oriented, Normal Cognition, No Motor/Sensory Deficits Psychiatric: Normal Affect, Normal Mood Skin Exam: Warm, Dry, Intact, Normal Color, No Rash Course - Vital Signs Last Recorded V/S: Last Vital Signs Temp 98.2 F 09/17/17 21:42 Pulse 96 09/17/17 21:42 Resp 20 09/17/17 21:42 BP 164/63 H 09/17/17 21:42 Pulse Ox 94 L 09/17/17 21:42 - Orders/Labs/Meds Orders: Active Orders 24 hr Category Date Time Status Ondansetron [Zofran] Med 09/17/17 22:22 Once 4 mg IVPUSH ONETIME ONE Sodium Chloride 0.9% @ 999 MLS/HR (1000ml) Med 09/17/17 22:22 Ordered Sodium Chloride 0.9% [Normal Saline] 1,000 ml IV .BOLUS - Re-Assessments/Exams Free Text/Narrative Re-Assessment/Exam: 09/17/17 23:24 After fluids and zofran IV patient is feeling much better. She never had any symptom except nausea and now feels like going home. Discussed findings and recommendations and patient discharged in stable condition. Departure - Departure Time of Disposition: 23:22 Disposition: Home, Self-Care 01 Condition: Good Clinical Impression: Nausea alone - Discharge Information Referrals: Gardenia Franco, LEAD SYSTEMS DEVELOPER [Primary Care Provider] - Additional Instructions: 1. Try to drink 8 cups of water daily. 2. Continue to use the nausea medications as directed. 3. Follow up with your PCP in 2-3 days for recheck. 4. Return to ER if worsening this weekend. - My Orders Last 24 Hours: My Active Orders 09/17/17 22:22 Ondansetron [Zofran] 4 mg IVPUSH ONETIME ONE Sodium Chloride 0.9% @ 999 MLS/HR (1000ml) Sodium Chloride 0.9% [Normal Saline] 1,000 ml IV .BOLUS - Assessment/Plan Last 24 Hours: My Active Orders 09/17/17 22:22 Ondansetron [Zofran] 4 mg IVPUSH ONETIME ONE Sodium Chloride 0.9% @ 999 MLS/HR (1000ml) Sodium Chloride 0.9% [Normal Saline] 1,000 ml IV .BOLUS
[2017-09-17 23:00] VITALS: BP 143/67
== END 2017-09-17 23:30 | disposition home or self-care (01) ==
LOC: KA.ED 21:33
DX: R11.0 Nausea (principal); I11.0 Hypertensive heart disease with heart failure; I50.9 Heart failure, unspecified; K21.9 Gastro-esophageal reflux disease without esophagitis; M19.90 Unspecified osteoarthritis, unspecified site; Z79.899 Other long term (current) drug therapy; Z79.82 Long term (current) use of aspirin; Z88.5 Allergy status to narcotic agent; Z95.1 Presence of aortocoronary bypass graft
CPT/HCPCS: 96361; 96374; 99283; 99284; J2405; J7030

== ENCOUNTER 2019-05-23 21:30 | Observation (INO) | payer MEDICARE, BC ==
[2019-05-23] MEDS ORDERED: Sodium Chloride 0.9% 10 ML Syringe FLUSH PRN ×3 (22:01→23:05)
[2019-05-23] MEDS ORDERED: Ondansetron 4 MG/2 ML SDV IVPUSH ONE (22:06)
[2019-05-23] MEDS ORDERED: Sodium Chloride 0.9% 500 ML ONE (22:13)
[2019-05-23] MEDS ORDERED: Sodium Chloride 0.9% 500 ML IV SCH (22:15)
--- NOTE | 2019-05-23 22:23 | EDM.PDOC ---
ED HPI GENERAL MEDICAL PROBLEM - General Chief Complaint: General Stated Complaint: Feel Nauseated Time Seen by Provider: 05/23/19 22:00 Source of Information: Reports: Patient History Limitations: Reports: No Limitations - History of Present Illness INITIAL COMMENTS - FREE TEXT/NARRATIVE: 83 YO WF presents to ER with concerns of left arm discomfort, nausea and shortness of breath which began today. Pt reports earlier in the day she had left arm pain which radiated to her elbow. This resolved after about 30 minutes follow by nausea which began after supper tonight. Pt also reports some dyspnea on exertion earlier in the day. Pt denies any chest pain, dizziness or diaphoresis. Pt reports none of her symptoms occurred simultaneously but she became concerned since she's had similar symptoms in the past requiring a cardiac rule out. Pt denies any fever/chills, no recent URI, no dysuria or frequency. Onset: Today Duration: Improving, Resolved Prior to Arrival Location: Reports: Upper Extremity, Left Quality: Reports: Dull Severity: Mild Improves with: Reports: None Worsens with: Reports: None Associated Symptoms: Reports: Nausea/Vomiting, Shortness of Breath. Denies: Chest Pain, Cough, cough w sputum, Diaphoresis, Fever/Chills, Malaise, Syncope, Weakness - Related Data Allergies Allergy/AdvReac Type Severity Reaction Status Date / Time Anesthetics - Lucy Type- Allergy Edema Verified 05/23/19 21:39 Parabens [Anesthetics - Lucy Type] hydromorphone HCl Allergy Lightheaded Verified 05/23/19 21:39 [From Dilaudid] ness prochlorperazine edisylate Allergy Bronchospas Verified 05/23/19 21:39 [From Compazine] ms prochlorperazine maleate Allergy Bronchospas Verified 05/23/19 21:39 [From Compazine] ms propoxyphene HCl Allergy Nausea and Verified 05/23/19 21:39 [From Darvon] Vomiting novacaine Allergy Severe Swollen Uncoded 09/19/17 10:32 Tongue Home Meds: Home Meds Aspirin [Ecotrin EC] 325 mg PO DAILY 05/02/14 [History] Calcium Carbonate/Vitamin D3 [Calcium 500-Vit D3 200 Tablet] 1 tab PO DAILY [History] Cyclobenzaprine [Flexeril] 10 mg PO DAILY PRN 05/02/14 [History] Furosemide [Lasix] 40 mg PO DAILY 05/02/14 [History] Multivitamin [One Daily Multivitamin] 1 tab PO DAILY 05/02/14 [History] Omeprazole 20 mg PO DAILY PRN 05/02/14 [History] Promethazine [Phenergan] 0.2 ml TOP ASDIRECTED PRN 05/02/14 [History] Morphine PF [Infumorph] 6.117 mg ITHECAL DAILY 05/03/14 [History] Carvedilol [Coreg] 3.125 mg PO DAILY 05/06/14 [History] LORazepam [Ativan] 0.25 mg PO TID PRN #30 tablet 05/09/14 [Rx] Potassium Chloride [Klor-Con 10] 10 meq PO DAILY 07/08/17 [History] Lisinopril 10 mg PO DAILY 08/10/17 [History] Magnesium Oxide [Magnesium] 400 mg PO DAILY 08/10/17 [History] Promethazine [Phenergan] 0.5 ml TOP ASDIRECTED 08/10/17 [History] Past Medical History HEENT History: Reports: Cataract, Impaired Vision Cardiovascular History: Reports: Arrhythmia, Heart Failure, Hypertension, Pacemaker Respiratory History: Reports: Other (See Below) Other Respiratory History: nodule in chest Gastrointestinal History: Reports: Chronic Constipation, GERD 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 History: 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: Musculoskeletal History: Reports: Arthritis, Back Pain, Chronic, Osteoarthritis , Osteoporosis Neurological History: Reports: Migraines Psychiatric History: Reports: Anxiety Hematologic History: Reports: Blood Transfusion(s) - Infectious Disease History Infectious Disease History: Reports: Chicken Pox, Measles, Mumps, Pertussis ( Whooping Cough), Shingles - Past Surgical History Cardiovascular Surgical History: Reports: Other (See Below) Other Cardiovascular Surgeries/Procedures: PACEMAKER Respiratory Surgical History: Reports: Lung Biopsies GI Surgical History: Reports: Appendectomy, Cholecystectomy, Colonoscopy Female Surgical History: Reports: Hysterectomy Neurological Surgical History: Reports: Other (See Below) Other Neurological Surgeries/Procedures: back surgery Musculoskeletal Surgical History: Reports: Hip Replacement, Knee Replacement, Shoulder Replacement Other Musculoskeletal Surgeries/Procedures:: REVERSE SHOULDERS, BACK SURGERIES x3 Social & Family History - Family History Family Medical History: Noncontributory - Caffeine Use Caffeine Use: Reports: Coffee ED ROS GENERAL - Review of Systems Review Of Systems: See Below Constitutional: Reports: No Symptoms HEENT: Reports: No Symptoms Respiratory: Reports: Shortness of Breath Cardiovascular: Reports: Dyspnea on Exertion. Denies: Chest Pain, Blood Pressure Problem, Edema, Lightheadedness, Palpitations, PND, Syncope Endocrine: Reports: No Symptoms GI/Abdominal: Reports: Nausea : Reports: No Symptoms Musculoskeletal: Reports: No Symptoms Skin: Reports: No Symptoms Neurological: Reports: No Symptoms Psychiatric: Reports: No Symptoms Hematologic/Lymphatic: Reports: No Symptoms Immunologic: Reports: No Symptoms ED EXAM, GENERAL - Physical Exam Exam: See Below Exam Limited By: No Limitations General Appearance: Alert, WD/WN, No Apparent Distress Head: Atraumatic, Normocephalic Neck: Normal Inspection, Supple, Non-Tender, Full Range of Motion Respiratory/Chest: No Respiratory Distress, Lungs Clear, Normal Breath Sounds, No Accessory Muscle Use, Chest Non-Tender Cardiovascular: Normal Peripheral Pulses, Regular Rate, Rhythm, No Edema, No Gallop, No JVD, No Murmur, No Rub GI/Abdominal: Normal Bowel Sounds, Soft, Non-Tender, No Organomegaly, No Distention, No Abnormal Bruit, No Mass Back Exam: Normal Inspection, Full Range of Motion, NT Extremities: Normal Inspection, Normal Range of Motion, Non-Tender, Normal Capillary Refill, No Pedal Edema Neurological: Alert, Oriented, CN II-XII Intact, Normal Cognition, Normal Gait, Normal Reflexes, No Motor/Sensory Deficits Psychiatric: Normal Affect, Normal Mood Skin Exam: Warm, Dry, Intact, Normal Color, No Rash Lymphatic: No Adenopathy EKG INTERPRETATION EKG Date: 05/23/19 Time: 21:51 Rhythm: NSR Rate (Beats/Min): 80 [place]: LAD-Left Avenal Deviation P-Wave: Present QRS: Normal ST-T: Normal QT: Normal Comparison: No Change (07/22/2017- 100% AV paced) Course - Vital Signs Last Recorded V/S: Last Vital Signs Temp 36.5 C 05/23/19 21:40 Pulse 88 05/23/19 21:40 Resp 15 05/23/19 21:40 BP 164/72 H 05/23/19 21:40 Pulse Ox 95 05/23/19 21:40 - Orders/Labs/Meds Orders: Active Orders 24 hr Category Date Time Status EKG Documentation Completion [RC] ASDIRECTED Care 05/23/19 22:02 Active Peripheral IV Care [RC] . DIRECTED Care 05/23/19 22:02 Active Peripheral IV Care [RC] . DIRECTED Care 05/23/19 22:06 Active Chest 2V [CR] Stat Exams 05/23/19 22:06 Ordered UA W/MICROSCOPIC [URIN] Stat Lab 05/23/19 22:06 Ordered Sodium Chloride 0.9% [Normal Saline] 500 ml Med 05/23/19 22:15 Active IV .BOLUS Sodium Chloride 0.9% [Saline Flush] Med 05/23/19 22:01 Active 10 ml FLUSH Q8HR PRN Sodium Chloride 0.9% [Saline Flush] Med 05/23/19 22:06 Active 10 ml FLUSH Q8HR PRN Peripheral IV Insertion Adult [OM.PC] Routine Oth 05/23/19 22:01 Ordered Peripheral IV Insertion Adult [OM.PC] Routine Oth 05/23/19 22:06 Ordered EKG 12 Lead [EK] Routine Ther 05/23/19 22:01 Ordered Medication Orders Sodium Chloride (Normal Saline) 500 mls @ 500 mls/hr IV .BOLUS KAROL Sodium Chloride (Saline Flush) 10 ml FLUSH Q8HR PRN PRN Reason: keep vein open Last Admin: 05/23/19 22:06 Dose: 10 ml Sodium Chloride (Saline Flush) 10 ml FLUSH Q8HR PRN PRN Reason: keep vein open Labs: Laboratory Tests 05/23/19 05/23/19 Range/Units 21:55 21:55 WBC 4.75 L (5.00-10.00) 10^3/uL RBC 4.45 (3.80-5.50) 10^6/uL Hgb 14.0 (12.0-16.0) g/dL Hct 40.5 (37.0-47.0) % MCV 91.0 (82.0-92.0) fL MCH 31.5 H (27.0-31.0) pg MCHC 34.6 (32.0-36.0) g/dL RDW 12.7 (11.5-14.5) % Plt Count 174 (150-400) 10^3/uL MPV 11.1 H (7.4-10.4) fL Immature Gran % (Auto) 0.0 (0.0-5.0) % Neut % (Auto) 45.9 L (50.0-70.0) % Lymph % (Auto) 40.2 H (20.0-40.0) % [place] % (Auto) 11.4 H (2.0-8.0) % Eos % (Auto) 2.3 (1.0-3.0) % Baso % (Auto) 0.2 (0.0-1.0) % Immature Gran # (Auto) 0.00 (0.00-0.50) 10^3/uL Neut # (Auto) 2.18 L (2.50-7.00) 10^3/uL Lymph # (Auto) 1.91 (1.00-4.00) 10^3/uL [place] # (Auto) 0.54 (0.10-0.80) 10^3/uL Eos # (Auto) 0.11 (0.10-0.30) 10^3/uL Baso # (Auto) 0.01 (0.00-0.10) 10^3/uL Sodium 144 (136-145) mmol/L Potassium 3.9 (3.3-5.3) mmol/L Chloride 105 (98-115) mmol/L Carbon Dioxide 32.6 H (21.0-32.0) mmol/L Anion Gap 10.3 (5-15) mmol/L BUN 20 (6-25) mg/dL Creatinine 0.84 (0.51-1.17) mg/dL Est Cr Clr Drug Dosing 35.17 mL/min Estimated GFR (MDRD) > 60 mL/min Glucose 107 H (75 - 99) mg/dL Calcium 8.9 (8.7-10.3) mg/dL Total Bilirubin 0.3 (0.2-1.0) mg/dL AST 26 (15-37) U/L ALT 37 (12-78) U/L Alkaline Phosphatase 73 (46-116) IU/L Creatine Kinase 119 (26-276) U/L CK-MB (CK-2) 1.20 (0.00-4.30) ng/mL Troponin I 0.08 H* (0.00-0.070) ng/mL Total Protein 7.2 (6.4-8.2) g/dL Albumin 3.52 (3.00-4.80) g/dL Lipase 93 (73-393) U/L Meds: Medications Generic Name Dose Route Start Last Admin Trade Name Freq PRN Reason Stop Dose Admin Sodium Chloride 500 mls @ 500 mls/hr 05/23/19 22:15 Normal Saline IV .BOLUS KAROL Sodium Chloride 10 ml 05/23/19 22:01 05/23/19 22:06 Saline Flush FLUSH 10 ml Q8HR PRN Administration keep vein open Sodium Chloride 10 ml 05/23/19 22:06 Saline Flush FLUSH Q8HR PRN keep vein open Discontinued Medications Generic Name Dose Route Start Last Admin Trade Name Freq PRN Reason Stop Dose Admin Sodium Chloride Confirm 05/23/19 22:13 05/23/19 22:59 Normal Saline Administered 05/23/19 22:14 Not Given Dose 500 mls @ as directed .ROUTE .STK-MED ONE Ondansetron HCl 4 mg 05/23/19 22:06 05/23/19 22:17 Zofran IVPUSH 05/23/19 22:07 4 mg ONETIME ONE Administration - Radiology Interpretation Free Text/Narrative:: CXR-NAD Departure - Departure Time of Disposition: 23:02 Disposition: Refer to Observation Condition: Fair Clinical Impression: Anginal equivalent, Elevated troponin I level - Discharge Information Forms: ED Department Discharge - My Orders Last 24 Hours: My Active Orders 05/23/19 22:01 Sodium Chloride 0.9% [Saline Flush] 10 ml FLUSH Q8HR PRN Peripheral IV Insertion Adult [OM.PC] Routine EKG 12 Lead [EK] Routine 05/23/19 22:02 EKG Documentation Completion [RC] ASDIRECTED Peripheral IV Care [RC] . DIRECTED 05/23/19 22:06 Peripheral IV Care [RC] . DIRECTED Chest 2V [CR] Stat UA W/MICROSCOPIC [URIN] Stat Sodium Chloride 0.9% [Saline Flush] 10 ml FLUSH Q8HR PRN Peripheral IV Insertion Adult [OM.PC] Routine 05/23/19 22:15 Sodium Chloride 0.9% [Normal Saline] 500 ml IV .BOLUS - Assessment/Plan Last 24 Hours: My Active Orders 05/23/19 22:01 Sodium Chloride 0.9% [Saline Flush] 10 ml FLUSH Q8HR PRN Peripheral IV Insertion Adult [OM.PC] Routine EKG 12 Lead [EK] Routine 05/23/19 22:02 EKG Documentation Completion [RC] ASDIRECTED Peripheral IV Care [RC] . DIRECTED 05/23/19 22:06 Peripheral IV Care [RC] . DIRECTED Chest 2V [CR] Stat UA W/MICROSCOPIC [URIN] Stat Sodium Chloride 0.9% [Saline Flush] 10 ml FLUSH Q8HR PRN Peripheral IV Insertion Adult [OM.PC] Routine 05/23/19 22:15 Sodium Chloride 0.9% [Normal Saline] 500 ml IV .BOLUS Assessment:: 1. Anginal equivalent symptoms 2. borderline trop I Plan: 1. admit to medicine- Dr Kai Fuentes 2. nitro/ASA 3. trop I Q6 x 2 4. supportive care
[2019-05-23 22:41] LABS: ANION GAP 10.3 mmol/L (5-15); CHLORIDE,CL 105 mmol/L (98-115); SODIUM,NA 144 mmol/L (136-145)
[2019-05-23] MEDS ORDERED: Aspirin 81 MG Tab.Chew PO ONE (23:07)
[2019-05-23] MEDS ORDERED: Nitroglycerin 2% Oint 1 GM UD Packet TOP SCH (23:15)
[2019-05-24] MEDS ORDERED: Omeprazole 20 MG Cap.CR PO PRN (01:02)
[2019-05-24 06:14] VITALS: BP 94/52; PULSE 61
[2019-05-24] MEDS ORDERED: Carvedilol 6.25 MG Tab PO SCH (08:00)
[2019-05-24] MEDS ORDERED: CARVEDILOL 6.25 MG PO SCH ×2 (08:00)
--- NOTE | 2019-05-24 08:29 | CR ---
[id number] RAD/RAD Chest PA And Lateral EXAM: RAD Chest PA And Lateral INDICATION: NAUSEA COMPARISON: June 2017. DISCUSSION: Changes of COPD. Cardiomegaly. Left chest wall cardiac conduction device. No acute findings. IMPRESSION: No acute findings. Butch Pantoja MD 05/24/19 0828 Thank you for allowing us to participate in the care of your patient.
[2019-05-24] MEDS ORDERED: FUROSEMIDE 40 MG PO SCH ×2 (09:00)
[2019-05-24] MEDS ORDERED: LISINOPRIL 30 MG PO SCH (09:00)
[2019-05-24] MEDS ORDERED: Potassium Chloride 10 MEQ Tab.ER PO SCH (09:00)
[2019-05-24] MEDS ORDERED: Furosemide 40 MG Tab PO SCH (09:00)
[2019-05-24] MEDS ORDERED: Non-Formulary Medication 1 Each (Magnesium Oxide [Magnesium] 400 MG) PO SCH (09:00)
[2019-05-24] MEDS ORDERED: ASPIRIN 325 MG PO SCH ×2 (09:00)
[2019-05-24] MEDS ORDERED: POTASSIUM CHLORIDE 10 MEQ PO SCH ×2 (09:00)
[2019-05-24] MEDS ORDERED: Aspirin 325 MG Tab.EC PO SCH ×2 (09:00)
[2019-05-24] MEDS ORDERED: Lisinopril 10 MG Tab PO SCH (09:00)
[2019-05-24] MEDS ORDERED: Nitroglycerin 0.4 MG Tab.SL SL PRN (10:44)
[2019-05-24] MEDS ORDERED: EPINEPHrine 1:10,000 1 MG/10 ML Syringe IVPUSH PRN (10:44)
[2019-05-24] MEDS ORDERED: Atropine 0.1 MG/ML 10 ML Syringe IVPUSH PRN (10:44)
[2019-05-24] MEDS ORDERED: Lidocaine 2% 100 MG/5 ML Syringe IVPUSH PRN (10:44)
--- NOTE | 2019-05-24 11:04 | PCM.DCSUM1 ---
Discharge Summary - Hospital Course Free Text/Narrative:: Date of admission: 05/23/19 Date of discharge: 05/24/19 Admission diagnoses: # Elevated troponin # Chronic bilateral shoulder pain # Chronic narcotic dependence # Intrathecal pump status # HTN # GERD # Osteopenia/porosis Discharge diagnoses: # Elevated troponin, resolved # Dyspnea on exertion, chronic # Chronic bilateral shoulder pain # Chronic narcotic dependence # Intrathecal pump status # HTN # GERD # Osteopenia/porosis Hospital course: Mrs. Clemens is an 83yoF with a history notable for chronic bilateral shoulder and back pain with multiple prior surgeries on chronic narcotic pain pump and no CAD (negative nuclear stress test 08/15/17 performed following history of elevated troponin/NSTEMI) who came into the [facility] ED on 05/23/19 following episodes of L shoulder pain and nausea, at separate times. She states that during the morning of 05/23/19, she was experiencing some intermittent L arm pain with radiation into the elbow who resolved on its own after about 30 minutes. Later in the day, she endorsed some nausea without emesis. Intermittently in the day, she had some dyspnea with exertion, but without other associated symptoms; she endorses that she does feel generally more "winded" lately, but attributes it to being "out of shape." She has been taking her medications as prescribed and hasn't had any recent illnesses. She has had multiple bilateral shoulder surgeries and admits to chronic L>R shoulder pain, which sometimes causes her more difficulty depending on her activity. She has an intrathecal pain pump. In the ED, she had an initial BP of 162/72, but otherwise normal VS and unremarkable exam. Labs were notable for troponin of 0.08 and otherwise normal CBC/CMP/lipase/UA. CXR noted no acute abnormalities, postsurgical changes in the shoulders, and osteoporosis. EKG with NSR, LAD, and intraventricular block, but no acute findings. She was given ASA and nitro, but had no active symptoms upon arrival or throughout her ED stay. She was admitted for telemetry monitoring and serial troponin evaluation. Repeat troponin 0.07, then 0.05. No telemetry concerns. No recurrence of L arm pain, nausea, shortness of breath, or any other complaints. Deemed ready for discharge, with close monitoring of symptoms, for which dyspnea on exertion could be anginal equivalent and thought to be given to further work-up with repeat stress testing, given risks of HTN, DMT2, and family history of CAD and mildly elevated troponin. Discharge and follow-up recommendations: - Discharge to home - New medications at discharge: None - Follow-up with CL Layton in 6-10 days; Recommend the addressing the following: - Evaluate interval symptoms and consider repeat stress testing (risks as described above) - Verify that patient is taking carvedilol 6.25mg just once daily and consider dosing adjustment to BID given short half-life and more optimal dosing schedule - Consider repeat DEXA given noted osteoporosis on CXR and last DEXA in 2006 This is a same day admission and discharge. - Discharge Data Discharge Date: 05/24/19 Discharge Disposition: Home, Self-Care 01 Condition: Good - Patient Instructions Diet: Heart Healthy Diet Activity: As Tolerated Notify Provider of: Fever, Increased Pain, Nausea and/or Vomiting - Discharge Plan *PRESCRIPTION DRUG MONITORING PROGRAM REVIEWED*: Not Applicable *COPY OF PRESCRIPTION DRUG MONITORING REPORT IN PATIENT LB: Not Applicable Home Medications: Home Meds Aspirin [Ecotrin EC] 325 mg PO DAILY 05/02/14 [History] Calcium Carbonate/Vitamin D3 [Calcium 500-Vit D3 200 Tablet] 1 tab PO DAILY [History] Cyclobenzaprine [Flexeril] 10 mg PO BEDTIME PRN 05/02/14 [History] Furosemide [Lasix] 40 mg PO DAILY 05/02/14 [History] Multivitamin [One Daily Multivitamin] 1 tab PO DAILY 05/02/14 [History] Omeprazole 20 mg PO DAILY PRN 05/02/14 [History] Morphine PF [Infumorph] 6.117 mg ITHECAL DAILY 05/03/14 [History] Carvedilol [Coreg] 6.25 mg PO DAILY 05/06/14 [History] Potassium Chloride [Klor-Con 10] 10 meq PO DAILY 07/08/17 [History] Magnesium Oxide [Magnesium] 400 mg PO DAILY 08/10/17 [History] Promethazine [Phenergan] 0.4 ml TOP Q6H PRN 08/10/17 [History] Amoxicillin 500 mg PO ASDIRECTED PRN 05/24/19 [History] Lisinopril 30 mg PO DAILY 05/24/19 [History] Referrals: PCP,Unobtain [Ordering Only Provider] - (Gardenia Franco APRN-HYDROMETEOROLOGY TEACHER; or CL Elliott in the [facility] in 5-10 days; pt requests appt time after 1530) - Discharge Summary/Plan Comment DC Time >30 min.: Yes - Patient Data Vitals - Most Recent: Last Vital Signs Temp 36.9 C 05/24/19 06:13 Pulse 61 05/24/19 06:13 Resp 16 05/24/19 06:13 BP 94/52 L 05/24/19 06:13 Pulse Ox 92 L 05/24/19 06:13 Weight - Most Recent: 81.647 kg I&O - Last 24 hours: Intake & Output 05/23/19 05/24/19 05/24/19 22:59 06:59 14:59 Intake Total 350 Output Total 100 Balance 250 Lab Results - Last 24 hrs: Laboratory Results - last 24 hr 05/23/19 05/23/19 05/24/19 Range/Units 21:55 21:55 02:55 WBC 4.75 L (5.00-10.00) 10^3/uL RBC 4.45 (3.80-5.50) 10^6/uL Hgb 14.0 (12.0-16.0) g/dL Hct 40.5 (37.0-47.0) % MCV 91.0 (82.0-92.0) fL MCH 31.5 H (27.0-31.0) pg MCHC 34.6 (32.0-36.0) g/dL RDW 12.7 (11.5-14.5) % Plt Count 174 (150-400) 10^3/uL MPV 11.1 H (7.4-10.4) fL Immature Gran % (Auto) 0.0 (0.0-5.0) % Neut % (Auto) 45.9 L (50.0-70.0) % Lymph % (Auto) 40.2 H (20.0-40.0) % Grainger % (Auto) 11.4 H (2.0-8.0) % Eos % (Auto) 2.3 (1.0-3.0) % Baso % (Auto) 0.2 (0.0-1.0) % Immature Gran # (Auto) 0.00 (0.00-0.50) 10^3/uL Neut # (Auto) 2.18 L (2.50-7.00) 10^3/uL Lymph # (Auto) 1.91 (1.00-4.00) 10^3/uL Grainger # (Auto) 0.54 (0.10-0.80) 10^3/uL Eos # (Auto) 0.11 (0.10-0.30) 10^3/uL Baso # (Auto) 0.01 (0.00-0.10) 10^3/uL Sodium 144 (136-145) mmol/L Potassium 3.9 (3.3-5.3) mmol/L Chloride 105 (98-115) mmol/L Carbon Dioxide 32.6 H (21.0-32.0) mmol/L Anion Gap 10.3 (5-15) mmol/L BUN 20 (6-25) mg/dL Creatinine 0.84 (0.51-1.17) mg/dL Est Cr Clr Drug Dosing 35.17 mL/min Estimated GFR (MDRD) > 60 mL/min Glucose 107 H (75 - 99) mg/dL Calcium 8.9 (8.7-10.3) mg/dL Total Bilirubin 0.3 (0.2-1.0) mg/dL AST 26 (15-37) U/L ALT 37 (12-78) U/L Alkaline Phosphatase 73 (46-116) IU/L Creatine Kinase 119 (26-276) U/L CK-MB (CK-2) 1.20 (0.00-4.30) ng/mL Troponin I 0.08 H* (0.00-0.070) ng/mL Total Protein 7.2 (6.4-8.2) g/dL Albumin 3.52 (3.00-4.80) g/dL Lipase 93 (73-393) U/L Specimen Type Urinvoid Urine Color Yellow (YELLOW) Urine Appearance Slightly cloudy H (CLEAR) Urine pH 6.5 (5.0-9.0) Ur Specific [place] 1.020 (1.005-1.030) Urine Protein Negative (NEGATIVE) mg/dL Urine Glucose (UA) Negative (NEGATIVE) mg/dL Urine Ketones Negative (NEGATIVE) mg/dL Urine Occult Blood Negative (NEGATIVE) Urine Nitrite Negative (NEGATIVE) Urine Bilirubin Negative (NEGATIVE) Urine Urobilinogen 0.2 (0.2-1.0) E.U./dL Ur Leukocyte Esterase Trace H (NEGATIVE) Urine RBC 0-5 (0-5) /HPF Urine WBC 50-75 H (0-5) /HPF Ur Epithelial Cells Few /LPF Urine Bacteria Few (NONE TO FEW) /HPF 05/24/19 05/24/19 Range/Units 04:08 09:55 WBC (5.00-10.00) 10^3/uL RBC (3.80-5.50) 10^6/uL Hgb (12.0-16.0) g/dL Hct (37.0-47.0) % MCV (82.0-92.0) fL MCH (27.0-31.0) pg MCHC (32.0-36.0) g/dL RDW (11.5-14.5) % Plt Count (150-400) 10^3/uL MPV (7.4-10.4) fL Immature Gran % (Auto) (0.0-5.0) % Neut % (Auto) (50.0-70.0) % Lymph % (Auto) (20.0-40.0) % Grainger % (Auto) (2.0-8.0) % Eos % (Auto) (1.0-3.0) % Baso % (Auto) (0.0-1.0) % Immature Gran # (Auto) (0.00-0.50) 10^3/uL Neut # (Auto) (2.50-7.00) 10^3/uL Lymph # (Auto) (1.00-4.00) 10^3/uL Grainger # (Auto) (0.10-0.80) 10^3/uL Eos # (Auto) (0.10-0.30) 10^3/uL Baso # (Auto) (0.00-0.10) 10^3/uL Sodium (136-145) mmol/L Potassium (3.3-5.3) mmol/L Chloride (98-115) mmol/L Carbon Dioxide (21.0-32.0) mmol/L Anion Gap (5-15) mmol/L BUN (6-25) mg/dL Creatinine (0.51-1.17) mg/dL Est Cr Clr Drug Dosing mL/min Estimated GFR (MDRD) mL/min Glucose (75 - 99) mg/dL Calcium (8.7-10.3) mg/dL Total Bilirubin (0.2-1.0) mg/dL AST (15-37) U/L ALT (12-78) U/L Alkaline Phosphatase (46-116) IU/L Creatine Kinase (26-276) U/L CK-MB (CK-2) (0.00-4.30) ng/mL Troponin I 0.07 0.05 (0.00-0.070) ng/mL Total Protein (6.4-8.2) g/dL Albumin (3.00-4.80) g/dL Lipase (73-393) U/L Specimen Type Urine Color (YELLOW) Urine Appearance (CLEAR) Urine pH (5.0-9.0) Ur Specific [place] (1.005-1.030) Urine Protein (NEGATIVE) mg/dL Urine Glucose (UA) (NEGATIVE) mg/dL Urine Ketones (NEGATIVE) mg/dL Urine Occult Blood (NEGATIVE) Urine Nitrite (NEGATIVE) Urine Bilirubin (NEGATIVE) Urine Urobilinogen (0.2-1.0) E.U./dL Ur Leukocyte Esterase (NEGATIVE) Urine RBC (0-5) /HPF Urine WBC (0-5) /HPF Ur Epithelial Cells /LPF Urine Bacteria (NONE TO FEW) /HPF Med Orders - Current: Current Medications Atropine Sulfate (Atropine 0.1 Mg/Ml) 0 mg IVPUSH ASDIRECTED PRN PRN Reason: Heart Epinephrine HCl (Epinephrine 1:10,000) 1 mg IVPUSH ASDIRECTED PRN PRN Reason: Heart Lidocaine HCl (Xylocaine 2%) 0 mg IVPUSH ASDIRECTED PRN PRN Reason: Heart Nitroglycerin (Nitrostat) 0.4 mg SL ASDIRECTED PRN PRN Reason: Heart Non-Formulary Medication (Magnesium Oxide [Magnesium]) 400 mg PO DAILY KAROL Omeprazole (Omeprazole) 20 mg PO DAILY PRN PRN Reason: gastric upset Lisinopril 30mg Tab (- Ptom) 1 each PO DAILY KAROL Last Admin: 05/24/19 09:15 Dose: 1 each Potassium Chloride (10 Meq Tab.Er - Ptom) 1 each PO DAILY KAROL Last Admin: 05/24/19 09:15 Dose: 1 each Aspirin 325 Mg Tab. (Ec - Ptom) 1 each PO DAILY KAROL Last Admin: 05/24/19 09:15 Dose: 1 each Furosemide 40 Mg Tab (- Ptom) 1 each PO DAILY KAROL Last Admin: 05/24/19 09:15 Dose: 1 each Carvedilol 6.25 Mg (Tab - Ptom) 1 each PO WITHBREAKFAST KAROL Last Admin: 05/24/19 09:15 Dose: 1 each Sodium Chloride (Saline Flush) 10 ml FLUSH Q8HR PRN PRN Reason: keep vein open Discontinued Medications Aspirin (Aspirin) 324 mg PO ONETIME ONE Stop: 05/23/19 23:08 Last Admin: 05/24/19 01:08 Dose: Not Given Aspirin (Ecotrin) 325 mg PO DAILY KAROL Aspirin (Ecotrin) 325 mg PO DAILY KAROL Carvedilol (Coreg) 6.25 mg PO WITHBREAKFAST KAORL Furosemide (Lasix) 40 mg PO DAILY [facility] Sodium Chloride (Normal Saline) 500 mls @ 500 mls/hr IV .BOLUS KAROL Last Admin: 05/23/19 22:40 Dose: 500 mls/hr Sodium Chloride (Normal Saline) Confirm Administered Dose 500 mls @ as directed .ROUTE .STK-MED ONE Stop: 05/23/19 22:14 Last Admin: 05/23/19 22:59 Dose: Not Given Lisinopril (Prinivil) 30 mg PO DAILY [facility] Nitroglycerin (Nitro-Bid 2%) 1 gm TOP Q6H KAROL Last Admin: 05/24/19 00:10 Dose: 1 gm Ondansetron HCl (Zofran) 4 mg IVPUSH ONETIME ONE Stop: 05/23/19 22:07 Last Admin: 05/23/19 22:17 Dose: 4 mg Aspirin 325 Mg Tab. (Ec - Ptom) 325 each PO DAILY KAROL Furosemide 40 Mg Tab (- Ptom) 40 each PO DAILY KAROL Carvedilol 6.25 Mg (Tab - Ptom) 6.25 each PO WITHBREAKFAST KAROL Potassium Chloride (10 Meq Tab.Er - Ptom) 10 each PO DAILY KAROL Potassium Chloride (Klor-Con 10) 10 meq PO DAILY KAROL Sodium Chloride (Saline Flush) 10 ml FLUSH Q8HR PRN PRN Reason: keep vein open Last Admin: 05/23/19 22:06 Dose: 10 ml Sodium Chloride (Saline Flush) 10 ml FLUSH Q8HR PRN PRN Reason: keep vein open
--- NOTE | 2019-05-24 11:05 | PCM.HP ---
H&P History of Present Illness - General Date of Service: 05/24/19 Admit Problem/Dx: Admission Diagnosis/Problem Admission Diagnosis/Problem Anginal equivalent Source of Information: Patient, Old Records, Provider History Limitations: Reports: No Limitations - History of Present Illness Initial Comments - Free Text/Narative: Mrs. Clemens states that during the morning of 05/23/19, she was experiencing some intermittent L arm pain with radiation into the elbow who resolved on its own after about 30 minutes. Later in the day, she endorsed some nausea without emesis. Intermittently in the day, she had some dyspnea with exertion, but without other associated symptoms; she endorses that she does feel generally more "winded" lately, but attributes it to being "out of shape." She has been taking her medications as prescribed and hasn't had any recent illnesses. She has had multiple bilateral shoulder surgeries and admits to chronic L>R shoulder pain, which sometimes causes her more difficulty depending on her activity. On the morning of 05/24/19, she denies having had any recurrence of L arm pain, nausea, shortness of breath, or any other complaints. She states that she feels well and desires discharge to home. Tolerating diet well and is at baseline ambulatory status. - Related Data Allergies/Adverse Reactions: Allergies Allergy/AdvReac Type Severity Reaction Status Date / Time Anesthetics - Lucy Type- Allergy Edema Verified 05/23/19 21:39 Parabens [Anesthetics - Lucy Type] hydromorphone HCl Allergy Lightheaded Verified 05/23/19 21:39 [From Dilaudid] ness prochlorperazine edisylate Allergy Bronchospas Verified 05/23/19 21:39 [From Compazine] ms prochlorperazine maleate Allergy Bronchospas Verified 05/23/19 21:39 [From Compazine] ms propoxyphene HCl Allergy Nausea and Verified 05/23/19 21:39 [From Darvon] Vomiting novacaine Allergy Severe Swollen Uncoded 09/19/17 10:32 Tongue Home Medications: Home Meds Aspirin [Ecotrin EC] 325 mg PO DAILY 05/02/14 [History] Calcium Carbonate/Vitamin D3 [Calcium 500-Vit D3 200 Tablet] 1 tab PO DAILY [History] Cyclobenzaprine [Flexeril] 10 mg PO BEDTIME PRN 05/02/14 [History] Furosemide [Lasix] 40 mg PO DAILY 05/02/14 [History] Multivitamin [One Daily Multivitamin] 1 tab PO DAILY 05/02/14 [History] Omeprazole 20 mg PO DAILY PRN 05/02/14 [History] Morphine PF [Infumorph] 6.117 mg ITHECAL DAILY 05/03/14 [History] Carvedilol [Coreg] 6.25 mg PO DAILY 05/06/14 [History] Potassium Chloride [Klor-Con 10] 10 meq PO DAILY 07/08/17 [History] Magnesium Oxide [Magnesium] 400 mg PO DAILY 08/10/17 [History] Promethazine [Phenergan] 0.4 ml TOP Q6H PRN 08/10/17 [History] Amoxicillin 500 mg PO ASDIRECTED PRN 05/24/19 [History] Lisinopril 30 mg PO DAILY 05/24/19 [History] Past Medical History HEENT History: Reports: Cataract, Impaired Vision Cardiovascular History: Reports: Arrhythmia, Heart Failure, Hypertension, Pacemaker Respiratory History: Reports: Other (See Below) Other Respiratory History: nodule in chest Gastrointestinal History: Reports: Chronic Constipation, GERD 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 History: Reports: None 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: Musculoskeletal History: Reports: Arthritis, Back Pain, Chronic, Osteoarthritis , Osteoporosis Neurological History: Reports: Migraines Psychiatric History: Reports: Anxiety Hematologic History: Reports: Blood Transfusion(s) - Infectious Disease History Infectious Disease History: Reports: Chicken Pox, Measles, Mumps, Pertussis ( Whooping Cough), Shingles - Past Surgical History Head Surgeries/Procedures: Reports: None Cardiovascular Surgical History: Reports: Other (See Below) Other Cardiovascular Surgeries/Procedures: PACEMAKER Respiratory Surgical History: Reports: Lung Biopsies GI Surgical History: Reports: Appendectomy, Cholecystectomy, Colonoscopy Female Surgical History: Reports: Hysterectomy Neurological Surgical History: Reports: Other (See Below) Other Neurological Surgeries/Procedures: back surgery Musculoskeletal Surgical History: Reports: Hip Replacement, Knee Replacement, Shoulder Replacement Other Musculoskeletal Surgeries/Procedures:: REVERSE SHOULDERS, BACK SURGERIES x3 Social & Family History - Family History Cardiac: Reports: CAD, Heart Valve Replacement, CT - Tobacco Use Smoking Status *Q: Never Smoker Second Hand Smoke Exposure: No - Caffeine Use Caffeine Use: Reports: Coffee - Recreational Drug Use Recreational Drug Use: No H&P Review of Systems - Review of Systems: Review Of Systems: See Below General: Denies: Fever, Chills, Malaise, Weakness, Fatigue, Weight Loss, Weight Gain HEENT: Denies: Ear Pain, Eye Pain, Headaches, Rhinitis, Sinus Congestion, Sore Throat Pulmonary: Denies: Wheezing, Pleuritic Chest Pain, Cough Cardiovascular: Reports: Dyspnea on Exertion, Edema. Denies: Chest Pain, Palpitations, Orthopnea, PND, Lightheadedness, Syncope, Claudication Gastrointestinal: Denies: Abdominal Pain, Constipation, Diarrhea, Decreased Appetite, Vomiting 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: Denies: Dysuria, Frequency, Burning, Pain Musculoskeletal: Reports: Shoulder Pain. Denies: Back Pain, Leg Pain Skin: Denies: Bruising, Rash, Wound Psychiatric: Denies: Confusion, Depression, Anxiety Neurological: Denies: Dizziness, Headache, Numbness, Tingling Hematologic/Lymphatic: Denies: Easy Bleeding, Easy Bruising, Swollen Glands Exam - Exam Exam: See Below - Vital Signs Vital Signs: Last Vital Signs Temp 36.9 C 05/24/19 06:13 Pulse 61 05/24/19 06:13 Resp 16 05/24/19 06:13 BP 94/52 L 05/24/19 06:13 Pulse Ox 92 L 05/24/19 06:13 Weight: 81.647 kg - Exam Physical Exam Comments:: GENERAL: Well-appearing elderly white female sitting in bedside chair in no acute distress. HEENT: Normocephalic, atraumatic. Conjunctiva clear. Nares patent without discharge. Mucous membranes moist, posterior pharynx unremarkable. NECK: Supple, no masses. CV: Regular rate and rhythm, no murmurs, rubs, or gallops. 2+ radial pulses. PULMONARY: Normal effort, clear to auscultation bilaterally, no wheezes, rales, or rhonchi. ABDOMEN: Central obesity, positive bowel sounds, soft, nontender, nondistended. EXTREMITIES: Trace bilateral ankle edema, no cyanosis or clubbing. MUSCULOSKELETAL: Limited ROM of bilateral shoulders and diffuse tenderness to palpation, which patient states is her baseline. NEUROLOGICAL: No obvious deficits. DERMATOLOGIC: No rashes or suspicious lesions in exposed areas. PSYCHIATRIC: Alert, interactive, appropriate affect. - Patient Data Lab Results Last 24 hrs: Laboratory Results - last 24 hr 05/23/19 05/23/1905/24/19 Range/Units 21:55 21:55 02:55 WBC 4.75 L (5.00-10.00) 10^3/uL RBC 4.45 (3.80-5.50) 10^6/uL Hgb 14.0 (12.0-16.0) g/dL Hct 40.5 (37.0-47.0) % MCV 91.0 (82.0-92.0) fL MCH 31.5 H (27.0-31.0) pg MCHC 34.6 (32.0-36.0) g/dL RDW 12.7 (11.5-14.5) % Plt Count 174 (150-400) 10^3/uL MPV 11.1 H (7.4-10.4) fL Immature Gran % (Auto) 0.0 (0.0-5.0) % Neut % (Auto) 45.9 L (50.0-70.0) % Lymph % (Auto) 40.2 H (20.0-40.0) % [place] % (Auto) 11.4 H (2.0-8.0) % Eos % (Auto) 2.3 (1.0-3.0) % Baso % (Auto) 0.2 (0.0-1.0) % Immature Gran # (Auto) 0.00 (0.00-0.50) 10^3/uL Neut # (Auto) 2.18 L (2.50-7.00) 10^3/uL Lymph # (Auto) 1.91 (1.00-4.00) 10^3/uL [place] # (Auto) 0.54 (0.10-0.80) 10^3/uL Eos # (Auto) 0.11 (0.10-0.30) 10^3/uL Baso # (Auto) 0.01 (0.00-0.10) 10^3/uL Sodium 144 (136-145) mmol/L Potassium 3.9 (3.3-5.3) mmol/L Chloride 105 (98-115) mmol/L Carbon Dioxide 32.6 H (21.0-32.0) mmol/L Anion Gap 10.3 (5-15) mmol/L BUN 20 (6-25) mg/dL Creatinine 0.84 (0.51-1.17) mg/dL Est Cr Clr Drug Dosing 35.17 mL/min Estimated GFR (MDRD) > 60 mL/min Glucose 107 H (75 - 99) mg/dL Calcium 8.9 (8.7-10.3) mg/dL Total Bilirubin 0.3 (0.2-1.0) mg/dL AST 26 (15-37) U/L ALT 37 (12-78) U/L Alkaline Phosphatase 73 (46-116) IU/L Creatine Kinase 119 (26-276) U/L CK-MB (CK-2) 1.20 (0.00-4.30) ng/mL Troponin I 0.08 H* (0.00-0.070) ng/mL Total Protein 7.2 (6.4-8.2) g/dL Albumin 3.52 (3.00-4.80) g/dL Lipase 93 (73-393) U/L Specimen Type Urinvoid Urine Color Yellow (YELLOW) Urine Appearance Slightly cloudy H (CLEAR) Urine pH 6.5 (5.0-9.0) Ur Specific [place] 1.020 (1.005-1.030) Urine Protein Negative (NEGATIVE) mg/dL Urine Glucose (UA) Negative (NEGATIVE) mg/dL Urine Ketones Negative (NEGATIVE) mg/dL Urine Occult Blood Negative (NEGATIVE) Urine Nitrite Negative (NEGATIVE) Urine Bilirubin Negative (NEGATIVE) Urine Urobilinogen 0.2 (0.2-1.0) E.U./dL Ur Leukocyte Esterase Trace H (NEGATIVE) Urine RBC 0-5 (0-5) /HPF Urine WBC 50-75 H (0-5) /HPF Ur Epithelial Cells Few /LPF Urine Bacteria Few (NONE TO FEW) /HPF 05/24/19 05/24/19 Range/Units 04:08 09:55 WBC (5.00-10.00) 10^3/uL RBC (3.80-5.50) 10^6/uL Hgb (12.0-16.0) g/dL Hct (37.0-47.0) % MCV (82.0-92.0) fL MCH (27.0-31.0) pg MCHC (32.0-36.0) g/dL RDW (11.5-14.5) % Plt Count (150-400) 10^3/uL MPV (7.4-10.4) fL Immature Gran % (Auto) (0.0-5.0) % Neut % (Auto) (50.0-70.0) % Lymph % (Auto) (20.0-40.0) % [place] % (Auto) (2.0-8.0) % Eos % (Auto) (1.0-3.0) % Baso % (Auto) (0.0-1.0) % Immature Gran # (Auto) (0.00-0.50) 10^3/uL Neut # (Auto) (2.50-7.00) 10^3/uL Lymph # (Auto) (1.00-4.00) 10^3/uL [place] # (Auto) (0.10-0.80) 10^3/uL Eos # (Auto) (0.10-0.30) 10^3/uL Baso # (Auto) (0.00-0.10) 10^3/uL Sodium (136-145) mmol/L Potassium (3.3-5.3) mmol/L Chloride (98-115) mmol/L Carbon Dioxide (21.0-32.0) mmol/L Anion Gap (5-15) mmol/L BUN (6-25) mg/dL Creatinine (0.51-1.17) mg/dL Est Cr Clr Drug Dosing mL/min Estimated GFR (MDRD) mL/min Glucose (75 - 99) mg/dL Calcium (8.7-10.3) mg/dL Total Bilirubin (0.2-1.0) mg/dL AST (15-37) U/L ALT (12-78) U/L Alkaline Phosphatase (46-116) IU/L Creatine Kinase (26-276) U/L CK-MB (CK-2) (0.00-4.30) ng/mL Troponin I 0.07 0.05 (0.00-0.070) ng/mL Total Protein (6.4-8.2) g/dL Albumin (3.00-4.80) g/dL Lipase (73-393) U/L Specimen Type Urine Color (YELLOW) Urine Appearance (CLEAR) Urine pH (5.0-9.0) Ur Specific [place] (1.005-1.030) Urine Protein (NEGATIVE) mg/dL Urine Glucose (UA) (NEGATIVE) mg/dL Urine Ketones (NEGATIVE) mg/dL Urine Occult Blood (NEGATIVE) Urine Nitrite (NEGATIVE) Urine Bilirubin (NEGATIVE) Urine Urobilinogen (0.2-1.0) E.U./dL Ur Leukocyte Esterase (NEGATIVE) Urine RBC (0-5) /HPF Urine WBC (0-5) /HPF Ur Epithelial Cells /LPF Urine Bacteria (NONE TO FEW) /HPF Result Diagrams: 05/23/19 21:55 05/23/19 21:55 Problem List Initiated/Reviewed/Updated: Yes Orders Last 24hrs: Active Orders 24 hr Category Date Time Status Patient Status [ADT] Routine ADT 05/23/19 23:05 Ordered Cardiac Monitoring [RC] 0300,0700,1100,1500,1900,2300 Care 05/23/19 23:06 Active Oxygen Therapy [RC] .PRN Care 05/23/19 23:05 Active Ready for Discharge [RC] PER UNIT ROUTINE Care 05/24/19 10:59 Active Up With Assistance [RC] ASDIRECTED Care 05/23/19 23:05 Active VTE/DVT Education [RC] PER UNIT ROUTINE Care 05/23/19 23:05 Active Vital Signs [RC] 0300,0700,1100,1500,1900,2300 Care 05/23/19 23:05 Active 2 Gram Sodium Diet [DIET] Diet 05/24/19 Breakfast Active Atropine [Atropine 0.1 MG/ML] Med 05/24/19 10:44 Active 0 mg IVPUSH ASDIRECTED PRN EPINEPHrine [EPINEPHrine 1:10,000] Med 05/24/19 10:44 Active 1 mg IVPUSH ASDIRECTED PRN Lidocaine 2% [Xylocaine 2%] Med 05/24/19 10:44 Active 0 mg IVPUSH ASDIRECTED PRN Magnesium Oxide [Magnesium] Med 05/24/19 09:00 Pending 400 mg PO DAILY Nitroglycerin [Nitrostat] Med 05/24/19 10:44 Active 0.4 mg SL ASDIRECTED PRN Omeprazole Med 05/24/19 01:02 Active 20 mg PO DAILY PRN Patient's Own Medication [Ptom] Med 05/24/19 09:00 Active 1 each PO DAILY Patient's Own Medication [Ptom] Med 05/24/19 09:00 Active 1 each PO DAILY Patient's Own Medication [Ptom] Med 05/24/19 09:00 Active 1 each PO DAILY Patient's Own Medication [Ptom] Med 05/24/19 09:00 Active 1 each PO DAILY Patient's Own Medication [Ptom] Med 05/24/19 08:00 Active 1 each PO WITHBREAKFAST Sodium Chloride 0.9% [Saline Flush] Med 05/23/19 23:05 Active 10 ml FLUSH Q8HR PRN Peripheral IV Insertion Adult [OM.PC] Routine Oth 05/23/19 22:01 Ordered Resuscitation Status Routine Resus Stat 05/23/19 23:05 Ordered Medication Orders Atropine Sulfate (Atropine 0.1 Mg/Ml) 0 mg IVPUSH ASDIRECTED PRN PRN Reason: Heart Epinephrine HCl (Epinephrine 1:10,000) 1 mg IVPUSH ASDIRECTED PRN PRN Reason: Heart Lidocaine HCl (Xylocaine 2%) 0 mg IVPUSH ASDIRECTED PRN PRN Reason: Heart Nitroglycerin (Nitrostat) 0.4 mg SL ASDIRECTED PRN PRN Reason: Heart Non-Formulary Medication (Magnesium Oxide [Magnesium]) 400 mg PO DAILY KAROL Omeprazole (Omeprazole) 20 mg PO DAILY PRN PRN Reason: gastric upset Lisinopril 30mg Tab (- Ptom) 1 each PO DAILY KAROL Last Admin: 05/24/19 09:15 Dose: 1 each Potassium Chloride (10 Meq Tab.Er - Ptom) 1 each PO DAILY KAROL Last Admin: 05/24/19 09:15 Dose: 1 each Aspirin 325 Mg Tab. (Ec - Ptom) 1 each PO DAILY KAROL Last Admin: 05/24/19 09:15 Dose: 1 each Furosemide 40 Mg Tab (- Ptom) 1 each PO DAILY KAROL Last Admin: 05/24/19 09:15 Dose: 1 each Carvedilol 6.25 Mg (Tab - Ptom) 1 each PO WITHBREAKFAST KAROL Last Admin: 05/24/19 09:15 Dose: 1 each Sodium Chloride (Saline Flush) 10 ml FLUSH Q8HR PRN PRN Reason: keep vein open Assessment/Plan Comment:: HPI summary: Mrs. Clemens is an 83yoF with a history notable for chronic bilateral shoulder and back pain with multiple prior surgeries on chronic narcotic pain pump and no CAD (negative nuclear stress test 08/15/17 performed following history of elevated troponin/NSTEMI) who came into the [facility] ED on 05/23/19 following episodes of L shoulder pain and nausea, at separate times. She states that during the morning of 05/23/19, she was experiencing some intermittent L arm pain with radiation into the elbow who resolved on its own after about 30 minutes. Later in the day, she endorsed some nausea without emesis. Intermittently in the day, she had some dyspnea with exertion, but without other associated symptoms; she endorses that she does feel generally more "winded" lately, but attributes it to being "out of shape." She has been taking her medications as prescribed and hasn't had any recent illnesses. She has had multiple bilateral shoulder surgeries and admits to chronic L>R shoulder pain, which sometimes causes her more difficulty depending on her activity. She has an intrathecal pain pump. ED course: In the ED, she had an initial BP of 162/72, but otherwise normal VS and unremarkable exam. Labs were notable for troponin of 0.08 and otherwise normal CBC/CMP/lipase/UA. CXR noted no acute abnormalities, postsurgical changes in the shoulders, and osteoporosis. EKG with NSR, LAD, and intraventricular block, but no acute findings. She was given ASA and nitro, but had no active symptoms upon arrival or throughout her ED stay. She was admitted for telemetry monitoring and serial troponin evaluation. Hospitalization problems # Elevated troponin Repeat troponin 0.07, then 0.05. No telemetry concerns. No recurrence of L arm pain, nausea, shortness of breath, or any other complaints. # Chronic bilateral shoulder pain # Chronic narcotic dependence # Intrathecal pump status Morphine/bupivicaine pump managed by [facility] and cyclobenzaprine prn. Chronic, stable conditions: # HTN: BP normalized following initial elevated SBP in ED. Carvedilol 6.25mg daily, lisinopril 30mg daily, furosemide 40mg daily/KCl 10mEq daily. # GERD: Controlled. Omeprazole 20mg daily. # Osteopenia/porosis: Last DEXA 2006; consider repeat given noted osteoporosis on CXR. Ca/D. Hospitalization details: # Code status: FULL. # Emergency contact: Daughter, who was updated at bedside. # Disposition: Admitted to observation status last evening and now discharging to home given no concerns, as above. This is a same day admission and discharge.
== END 2019-05-24 11:35 | disposition home or self-care (01) ==
LOC: KA.ED 21:30 → KA.MS 23:05 → UNDOADMOB 23:57
PROVIDERS: ADMIT Family Medicine; ATTEND Family Medicine
DX: R74.8 Abnormal levels of other serum enzymes (principal); R06.09 Other forms of dyspnea; M25.512 Pain in left shoulder; M25.511 Pain in right shoulder; F11.20 Opioid dependence, uncomplicated; K21.9 Gastro-esophageal reflux disease without esophagitis; M85.80 Other specified disorders of bone density and structure, unspecified site; M81.0 Age-related osteoporosis without current pathological fracture; I11.0 Hypertensive heart disease with heart failure; I50.9 Heart failure, unspecified; M19.90 Unspecified osteoarthritis, unspecified site; E66.8 Other obesity; Z68.35 Body mass index [BMI] 35.0-35.9, adult; Z97.8 Presence of other specified devices; Z79.82 Long term (current) use of aspirin; Z79.899 Other long term (current) drug therapy; Z91.048 Other nonmedicinal substance allergy status; Z88.5 Allergy status to narcotic agent; Z88.8 Allergy status to other drugs, medicaments and biological substances; Z88.4 Allergy status to anesthetic agent; Z95.0 Presence of cardiac pacemaker
CPT/HCPCS: 36415; 71046; 80053; 81001; 82550; 82553; 83690; 84484; 85025; 93005; 96361; 96374; 99285; A9270; J2405; J7040; 99284; G0378

== ENCOUNTER 2019-06-15 21:35 | Emergency (ER) | payer MEDICARE, BC ==
--- NOTE | 2019-06-15 22:17 | EDM.PDOC ---
ED HPI GENERAL MEDICAL PROBLEM - General Chief Complaint: General Stated Complaint: dizziness Time Seen by Provider: 06/15/19 22:10 Source of Information: Reports: Patient, Family (Son) History Limitations: Reports: No Limitations - History of Present Illness INITIAL COMMENTS - FREE TEXT/NARRATIVE: Patient is an 83-year-old female who presents to the emergency department this evening with a complaint of just not feeling right. Patient states after supper this evening she sat down in her chair while watching TV and fell asleep. She woke about 9 p.m., felt weak, a little dizzy and as she put it just felt off. Patient had similar symptoms 1 month ago. At that time Troponin was mildly elevated, patient was admitted for observation and discharge the next day. Currently, patient denies chest pain, shortness of breath, nausea, vomiting, diarrhea, dysuria, headache, blurry vision, head injury or any recent falls. Onset: Today Onset Date: 06/15/19 Onset Time: 21:00 Duration: Minutes: Severity: Mild Improves with: Reports: Other (Spontaneously) Worsens with: Reports: None Context: Reports: Other (At rest while sitting in chair) Associated Symptoms: Reports: No Other Symptoms - Related Data Allergies Allergy/AdvReac Type Severity Reaction Status Date / Time Anesthetics - Lucy Type- Allergy Edema Verified 06/15/19 22:09 Parabens [Anesthetics - Lucy Type] hydromorphone HCl Allergy Lightheaded Verified 06/15/19 22:09 [From Dilaudid] ness prochlorperazine edisylate Allergy Bronchospas Verified 06/15/19 22:09 [From Compazine] ms prochlorperazine maleate Allergy Bronchospas Verified 06/15/19 22:09 [From Compazine] ms propoxyphene HCl Allergy Nausea and Verified 06/15/19 22:09 [From Darvon] Vomiting novacaine Allergy Severe Swollen Uncoded 06/15/19 22:09 Tongue Home Meds: Home Meds Aspirin [Ecotrin EC] 325 mg PO DAILY 05/02/14 [History] Calcium Carbonate/Vitamin D3 [Calcium 500-Vit D3 200 Tablet] 1 tab PO DAILY [History] Cyclobenzaprine [Flexeril] 10 mg PO BEDTIME PRN 05/02/14 [History] Furosemide [Lasix] 40 mg PO DAILY 05/02/14 [History] Multivitamin [One Daily Multivitamin] 1 tab PO DAILY 05/02/14 [History] Omeprazole 20 mg PO DAILY PRN 05/02/14 [History] Morphine PF [Infumorph] 6.117 mg ITHECAL DAILY 05/03/14 [History] Carvedilol [Coreg] 6.25 mg PO DAILY 05/06/14 [History] Potassium Chloride [Klor-Con 10] 10 meq PO DAILY 07/08/17 [History] Magnesium Oxide [Magnesium] 400 mg PO DAILY 08/10/17 [History] Promethazine [Phenergan] 0.4 ml TOP Q6H PRN 08/10/17 [History] Amoxicillin 500 mg PO ASDIRECTED PRN 05/24/19 [History] Lisinopril 30 mg PO DAILY 05/24/19 [History] Cephalexin [Keflex] 500 mg PO TID #21 capsule 06/15/19 [Rx] Past Medical History HEENT History: Reports: Cataract, Impaired Vision Cardiovascular History: Reports: Arrhythmia, Heart Failure, Hypertension, Pacemaker Respiratory History: Reports: Other (See Below) Other Respiratory History: nodule in chest Gastrointestinal History: Reports: Chronic Constipation, GERD 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 History: Reports: None 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: Musculoskeletal History: Reports: Arthritis, Back Pain, Chronic, Osteoarthritis , Osteoporosis Neurological History: Reports: Migraines Psychiatric History: Reports: Anxiety Hematologic History: Reports: Blood Transfusion(s) - Infectious Disease History Infectious Disease History: Reports: Chicken Pox, Measles, Mumps, Pertussis ( Whooping Cough), Shingles - Past Surgical History Head Surgeries/Procedures: Reports: None Cardiovascular Surgical History: Reports: Other (See Below) Other Cardiovascular Surgeries/Procedures: PACEMAKER Respiratory Surgical History: Reports: Lung Biopsies GI Surgical History: Reports: Appendectomy, Cholecystectomy, Colonoscopy Female Surgical History: Reports: Hysterectomy Neurological Surgical History: Reports: Other (See Below) Other Neurological Surgeries/Procedures: back surgery Musculoskeletal Surgical History: Reports: Hip Replacement, Knee Replacement, Shoulder Replacement Other Musculoskeletal Surgeries/Procedures:: REVERSE SHOULDERS, BACK SURGERIES x3 Social & Family History - Family History Family Medical History: Noncontributory Cardiac: Reports: CAD, Heart Valve Replacement, [place] - Caffeine Use Caffeine Use: Reports: Coffee ED ROS GENERAL - Review of Systems Review Of Systems: ROS reveals no pertinent complaints other than HPI. Constitutional: Reports: Weakness HEENT: Reports: No Symptoms Respiratory: Reports: No Symptoms. Denies: Shortness of Breath Cardiovascular: Reports: No Symptoms. Denies: Chest Pain Endocrine: Reports: No Symptoms GI/Abdominal: Reports: No Symptoms : Reports: No Symptoms Musculoskeletal: Reports: No Symptoms Skin: Reports: No Symptoms Neurological: Reports: Dizziness Psychiatric: Reports: No Symptoms Hematologic/Lymphatic: Reports: No Symptoms Immunologic: Reports: No Symptoms ED EXAM, GENERAL - Physical Exam Exam: See Below Exam Limited By: No Limitations General Appearance: Alert, WD/WN, No Apparent Distress Eye Exam: Bilateral Eye: Normal Inspection Ears: Normal External Exam, Normal Canal, Normal TMs Nose: Normal Inspection, Normal Mucosa, No Blood Throat/Mouth: Normal Inspection, Normal Oropharynx, No Airway Compromise Head: Atraumatic, Normocephalic Neck: Normal Inspection, Supple, Non-Tender Respiratory/Chest: No Respiratory Distress, Lungs Clear, Normal Breath Sounds, No Accessory Muscle Use, Chest Non-Tender Cardiovascular: Normal Peripheral Pulses, Regular Rate, Rhythm, No Murmur, No Rub GI/Abdominal: Normal Bowel Sounds, Soft, Non-Tender, No Organomegaly, No Distention, No Abnormal Bruit, No Mass Back Exam: Normal Inspection. No: CVA Tenderness (L), CVA Tenderness (R) Extremities: Normal Inspection, Pedal Edema (1+ chronic) Neurological: Alert, Oriented, CN II-XII Intact, Normal Cognition, No Motor/ Sensory Deficits Psychiatric: Normal Affect, Normal Mood Skin Exam: Warm, Dry, Intact, Normal Color, No Rash Lymphatic: No Adenopathy EKG INTERPRETATION EKG Date: 06/15/19 Time: 21:55 Rhythm: Other (Paced) Rate (Beats/Min): 72 Comparison: No Change (From July 2017 and May 2019) Course - Vital Signs Last Recorded V/S: Last Vital Signs Temp 98.0 F 06/15/19 21:59 Pulse 70 06/15/19 22:20 Resp 20 06/15/19 22:20 BP 146/60 H 06/15/19 22:20 Pulse Ox 92 L 06/15/19 22:20 - Orders/Labs/Meds Orders: Active Orders 24 hr Category Date Time Status EKG Documentation Completion [RC] ASDIRECTED Care 06/15/19 22:11 Ordered CULTURE URINE [RM] Stat Lab 06/15/19 22:20 Received EKG 12 Lead [EK] Routine Ther 06/15/19 22:10 Ordered Labs: Laboratory Tests 06/15/19 06/15/19 06/15/19 Range/Units 22:10 22:10 22:11 WBC 4.28 L (5.00-10.00) 10^3/uL RBC 4.18 (3.80-5.50) 10^6/uL Hgb 13.5 (12.0-16.0) g/dL Hct 38.8 (37.0-47.0) % MCV 92.8 H (82.0-92.0) fL MCH 32.3 H (27.0-31.0) pg MCHC 34.8 (32.0-36.0) g/dL RDW 12.5 (11.5-14.5) % Plt Count 159 (150-400) 10^3/uL MPV 10.9 H (7.4-10.4) fL Immature Gran % (Auto) 0.0 (0.0-5.0) % Neut % (Auto) 44.4 L (50.0-70.0) % Lymph % (Auto) 39.7 (20.0-40.0) % [place] % (Auto) 13.1 H (2.0-8.0) % Eos % (Auto) 2.6 (1.0-3.0) % Baso % (Auto) 0.2 (0.0-1.0) % Immature Gran # (Auto) 0.00 (0.00-0.50) 10^3/uL Neut # (Auto) 1.90 L (2.50-7.00) 10^3/uL Lymph # (Auto) 1.70 (1.00-4.00) 10^3/uL [place] # (Auto) 0.56 (0.10-0.80) 10^3/uL Eos # (Auto) 0.11 (0.10-0.30) 10^3/uL Baso # (Auto) 0.01 (0.00-0.10) 10^3/uL Sodium 147 H (136-145) mmol/L Potassium 3.9 (3.3-5.3) mmol/L Chloride 106 (98-115) mmol/L Carbon Dioxide 34.4 H (21.0-32.0) mmol/L Anion Gap 10.5 (5-15) mmol/L BUN 26 H (6-25) mg/dL Creatinine 0.95 (0.51-1.17) mg/dL Est Cr Clr Drug Dosing 37.39 mL/min Estimated GFR (MDRD) 56 mL/min Glucose 107 H (75 - 99) mg/dL Calcium 9.1 (8.7-10.3) mg/dL Total Bilirubin 0.3 (0.2-1.0) mg/dL AST 21 (15-37) U/L ALT 29 (12-78) U/L Alkaline Phosphatase 73 (46-116) IU/L Troponin I < 0.04 (0.00-0.070) ng/mL Total Protein 7.0 (6.4-8.2) g/dL Albumin 3.46 (3.00-4.80) g/dL Specimen Type Urinvoid Urine Color Yellow (YELLOW) Urine Appearance Slightly cloudy H (CLEAR) Urine pH 5.5 (5.0-9.0) Ur Specific [place] 1.020 (1.005-1.030) Urine Protein Negative (NEGATIVE) mg/dL Urine Glucose (UA) Negative (NEGATIVE) mg/dL Urine Ketones Negative (NEGATIVE) mg/dL Urine Occult Blood Negative (NEGATIVE) Urine Nitrite Negative (NEGATIVE) Urine Bilirubin Negative (NEGATIVE) Urine Urobilinogen 0.2 (0.2-1.0) E.U./dL Ur Leukocyte Esterase Moderate H (NEGATIVE) Urine RBC 0-5 (0-5) /HPF Urine WBC >100 H (0-5) /HPF Ur Epithelial Cells Moderate H /LPF Urine Bacteria Moderate H (NONE TO FEW) /HPF - Re-Assessments/Exams Free Text/Narrative Re-Assessment/Exam: 06/15/19 22:56 Patient afebrile, vital signs stable, appears nontoxic. Patient given 1 g IM Rocephin and prescription for Keflex. Patient will follow-up at [facility] as scheduled on Tuesday. Departure - Departure Time of Disposition: 22:58 Disposition: Home, Self-Care 01 Condition: Good Clinical Impression: UTI, Urinary tract infectious disease - Discharge Information Instructions: Urinary Tract Infection, Adult, [id number], Urine Culture and Sensitivity Testing Referrals: Erin Marcus MD [Physician] - Forms: ED Department Discharge Additional Instructions: Follow-up with Dr. Marcus as scheduled on Tuesday. Drink plenty of fluids. Return to the emergency department sooner if symptoms continue or worsen. - My Orders Last 24 Hours: My Active Orders 06/15/19 22:10 EKG 12 Lead [EK] Routine 06/15/19 22:11 EKG Documentation Completion [RC] ASDIRECTED 06/15/19 22:20 CULTURE URINE [RM] Stat - Assessment/Plan Last 24 Hours: My Active Orders 06/15/19 22:10 EKG 12 Lead [EK] Routine 06/15/19 22:11 EKG Documentation Completion [RC] ASDIRECTED 06/15/19 22:20 CULTURE URINE [RM] Stat Assessment:: UTI Plan: follow-up at [facility] on Tuesday as scheduled
[2019-06-15 22:37] VITALS: BP 146/60; PULSE 70
[2019-06-15 22:49] LABS: ANION GAP 10.5 mmol/L (5-15); CHLORIDE,CL 106 mmol/L (98-115); SODIUM,NA 147 mmol/L (136-145)
[2019-06-15] MEDS ORDERED: cefTRIAXone 1 GM Vial IM ONE (22:56)
[2019-06-15] MEDS ORDERED: Lidocaine 1% 20 ML MDV ONE (22:59)
== END 2019-06-15 23:10 | disposition home or self-care (01) ==
LOC: KA.ED 21:35
DX: N39.0 Urinary tract infection, site not specified (principal); F41.9 Anxiety disorder, unspecified; K21.9 Gastro-esophageal reflux disease without esophagitis; Z79.899 Other long term (current) drug therapy; Z88.7 Allergy status to serum and vaccine; Z88.8 Allergy status to other drugs, medicaments and biological substances
CPT/HCPCS: 36415; 80053; 81001; 84484; 85025; 87086; 93005; 96372; 99284; J0696

== ENCOUNTER 2019-06-20 03:52 | Emergency (ER) | payer MEDICARE, BC ==
[2019-06-20] MEDS ORDERED: Ondansetron 4 MG/2 ML SDV IVPUSH ONE (04:10)
[2019-06-20] MEDS ORDERED: Sodium Chloride 0.9% 1,000 ML IV SCH (04:15)
--- NOTE | 2019-06-20 04:32 | EDM.PDOC ---
ED HPI GENERAL MEDICAL PROBLEM - General Chief Complaint: Gastrointestinal Problem Stated Complaint: vomitting Time Seen by Provider: 06/20/19 04:25 Source of Information: Reports: Patient History Limitations: Reports: No Limitations - History of Present Illness INITIAL COMMENTS - FREE TEXT/NARRATIVE: Patient is an 83-year-old female who presents to the emergency Department this morning with a complaint of nausea, vomiting and diarrhea. Patient states that at 3 o'clock this morning had diarrhea and one episode of vomiting. Decided to contact son and be seen in ER. Patient is currently on Keflex over the past 4 days for UTI. Patient denies abdominal pain, fever, blood in stool or vomit, headache, chest pain, shortness of breath, or change in any medication. Onset: Today Duration: Hour(s): Severity: Mild Improves with: Reports: None Worsens with: Reports: None Associated Symptoms: Reports: Nausea/Vomiting - Related Data Allergies Allergy/AdvReac Type Severity Reaction Status Date / Time Anesthetics - Lucy Type- Allergy Edema Verified 06/20/19 04:01 Parabens [Anesthetics - Lucy Type] hydromorphone HCl Allergy Lightheaded Verified 06/20/19 04:01 [From Dilaudid] ness prochlorperazine edisylate Allergy Bronchospas Verified 06/20/19 04:01 [From Compazine] ms prochlorperazine maleate Allergy Bronchospas Verified 06/20/19 04:01 [From Compazine] ms propoxyphene HCl Allergy Nausea and Verified 06/20/19 04:01 [From Darvon] Vomiting novacaine Allergy Severe Swollen Uncoded 06/20/19 04:01 Tongue Home Meds: Home Meds Aspirin [Ecotrin EC] 325 mg PO DAILY 05/02/14 [History] Calcium Carbonate/Vitamin D3 [Calcium 500-Vit D3 200 Tablet] 1 tab PO DAILY [History] Cyclobenzaprine [Flexeril] 10 mg PO BEDTIME PRN 05/02/14 [History] Furosemide [Lasix] 40 mg PO DAILY 05/02/14 [History] Multivitamin [One Daily Multivitamin] 1 tab PO DAILY 05/02/14 [History] Omeprazole 20 mg PO DAILY PRN 05/02/14 [History] Morphine PF [Infumorph] 6.117 mg ITHECAL DAILY 06/20/14 [History] Carvedilol [Coreg] 6.25 mg PO DAILY 05/06/14 [History] Potassium Chloride [Klor-Con 10] 10 meq PO DAILY 07/08/17 [History] Magnesium Oxide [Magnesium] 400 mg PO DAILY 08/10/17 [History] Promethazine [Phenergan] 0.4 ml TOP Q6H PRN 08/10/17 [History] Amoxicillin 500 mg PO ASDIRECTED PRN 05/24/19 [History] Lisinopril 30 mg PO DAILY 05/24/19 [History] Cephalexin [Keflex] 500 mg PO TID #21 capsule 06/15/19 [Rx] Past Medical History HEENT History: Reports: Cataract, Impaired Vision Cardiovascular History: Reports: Arrhythmia, Heart Failure, Hypertension, Pacemaker Respiratory History: Reports: Other (See Below) Other Respiratory History: nodule in chest Gastrointestinal History: Reports: Chronic Constipation, GERD 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 History: Reports: 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: Musculoskeletal History: Reports: Arthritis, Back Pain, Chronic, Osteoarthritis , Osteoporosis Neurological History: Reports: Migraines Psychiatric History: Reports: Anxiety Hematologic History: Reports: Blood Transfusion(s) - Infectious Disease History Infectious Disease History: Reports: Chicken Pox, Measles, Mumps, Pertussis ( Whooping Cough), Shingles - Past Surgical History Head Surgeries/Procedures: Reports: None Cardiovascular Surgical History: Reports: Other (See Below) Other Cardiovascular Surgeries/Procedures: PACEMAKER Respiratory Surgical History: Reports: Lung Biopsies GI Surgical History: Reports: Appendectomy, Cholecystectomy, Colonoscopy Female Surgical History: Reports: Hysterectomy Neurological Surgical History: Reports: Other (See Below) Other Neurological Surgeries/Procedures: back surgery Musculoskeletal Surgical History: Reports: Hip Replacement, Knee Replacement, Shoulder Replacement Other Musculoskeletal Surgeries/Procedures:: REVERSE SHOULDERS, BACK SURGERIES x3 Social & Family History - Family History Family Medical History: Noncontributory Cardiac: Reports: CAD, Heart Valve Replacement, [place] - Caffeine Use Caffeine Use: Reports: Coffee ED ROS GENERAL - Review of Systems Review Of Systems: ROS reveals no pertinent complaints other than HPI. Constitutional: Reports: No Symptoms. Denies: Fever HEENT: Reports: No Symptoms Respiratory: Reports: No Symptoms Cardiovascular: Reports: No Symptoms Endocrine: Reports: No Symptoms GI/Abdominal: Reports: Diarrhea, Nausea, Vomiting. Denies: Abdominal Pain, Black Stool, Bloody Stool, Hematemesis, Mucous in Stool : Reports: No Symptoms Musculoskeletal: Reports: No Symptoms Skin: Reports: No Symptoms Neurological: Reports: No Symptoms Psychiatric: Reports: No Symptoms Hematologic/Lymphatic: Reports: No Symptoms Immunologic: Reports: No Symptoms ED EXAM, GI/ABD - Physical Exam Exam: See Below Exam Limited By: No Limitations General Appearance: Alert, WD/WN, No Apparent Distress Nose: Normal Inspection, Normal Mucosa, No Blood Throat/Mouth: Normal Inspection, Normal Oropharynx, No Airway Compromise Head: Atraumatic, Normocephalic Respiratory/Chest: No Respiratory Distress, Lungs Clear, Normal Breath Sounds, No Accessory Muscle Use, Chest Non-Tender Cardiovascular: Regular Rate, Rhythm, No Murmur GI/Abdominal Exam: Soft, Non-Tender, No Organomegaly, No Distention, No Abnormal Bruit, No Mass, Abnormal Bowel Sounds (Hyperactive). No: Distended, Guarding, Rigid, Rebound Back Exam: Normal Inspection. No: CVA Tenderness (L), CVA Tenderness (R) Extremities: Normal Inspection, No Pedal Edema Neurological: Alert, Oriented, Normal Cognition Psychiatric: Normal Affect, Normal Mood Skin Exam: Warm, Dry, Intact, Normal Color, No Rash Course - Orders/Labs/Meds Orders: Active Orders 24 hr Category Date Time Status Sodium Chloride 0.9% [Normal Saline] 1,000 ml Med 06/20/19 04:15 Active IV ASDIRECTED Medication Orders Sodium Chloride (Normal Saline) 1,000 mls @ 150 mls/hr IV ASDIRECTED KAROL Meds: Medications Generic Name Dose Route Start Last Admin Trade Name Freq PRN Reason Stop Dose Admin Sodium Chloride 1,000 mls @ 150 mls/hr 06/20/19 04:15 Normal Saline IV ASDIRECTED KAROL Discontinued Medications Generic Name Dose Route Start Last Admin Trade Name Freq PRN Reason Stop Dose Admin Ondansetron HCl 4 mg 06/20/19 04:10 Zofran IVPUSH 06/20/19 04:11 ONETIME ONE - Re-Assessments/Exams Free Text/Narrative Re-Assessment/Exam: 06/20/19 04:56 Patient afebrile, vital signs stable, feels better and taking fluids by mouth, nontoxic appearing. Patient's son is at bedside. No vomiting or diarrhea while in ER. Patient will be discharged home with Zofran and follow-up at the [facility] today. 06/20/19 04:57 06/20/19 04:58 Departure - Departure Time of Disposition: 04:59 Disposition: Home, Self-Care 01 Condition: Good Clinical Impression: Vomiting Diarrhea Qualifiers: Diarrhea type: unspecified type Qualified Code(s): R19.7 - Diarrhea, unspecified - Discharge Information Instructions: Diarrhea, Adult, [id number], Nausea and Vomiting, Adult, Easy- to-Read Referrals: Erin Marcus MD [Physician] - Additional Instructions: Follow-up at [facility] in 1-2 days. Return to emergency department sooner if symptoms continue or worsen. Drink plenty of fluids. Take medication as directed - My Orders Last 24 Hours: My Active Orders 06/20/19 04:15 Sodium Chloride 0.9% [Normal Saline] 1,000 ml IV ASDIRECTED - Assessment/Plan Last 24 Hours: My Active Orders 06/20/19 04:15 Sodium Chloride 0.9% [Normal Saline] 1,000 ml IV ASDIRECTED Assessment:: Vomiting and diarrhea Plan: Follow-up with PCP
[2019-06-20] MEDS ORDERED: Ondansetron 4 MG Tab.DIS PO ONE (04:58)
[2019-06-20 07:15] VITALS: BP 116/41; PULSE 80
== END 2019-06-20 05:45 | disposition home or self-care (01) ==
LOC: KA.ED 03:52
DX: R19.7 Diarrhea, unspecified (principal); R11.10 Vomiting, unspecified; I11.0 Hypertensive heart disease with heart failure; I50.9 Heart failure, unspecified; F41.9 Anxiety disorder, unspecified; Z88.5 Allergy status to narcotic agent; Z88.8 Allergy status to other drugs, medicaments and biological substances; Z88.4 Allergy status to anesthetic agent; Z88.6 Allergy status to analgesic agent; Z79.82 Long term (current) use of aspirin; Z79.899 Other long term (current) drug therapy; Z95.0 Presence of cardiac pacemaker
CPT/HCPCS: 96361; 96374; 99283; J2405; J7030; 99284

== ENCOUNTER 2019-09-18 20:45 | Emergency (ER) | payer MEDICARE, BC ==
[2019-09-18] MEDS ORDERED: Sodium Chloride 0.9% 1,000 ML IV ONE (21:23)
[2019-09-18] MEDS ORDERED: Ondansetron 4 MG/2 ML SDV IVPUSH ONE ×2 (21:23→22:37)
--- NOTE | 2019-09-18 21:29 | EDM.PDOC ---
ED HPI GENERAL MEDICAL PROBLEM - General Chief Complaint: Gastrointestinal Problem Stated Complaint: NAUSEA,VOMITING Time Seen by Provider: 09/18/19 20:49 Source of Information: Reports: Patient, Family (dtr) History Limitations: Reports: No Limitations - History of Present Illness INITIAL COMMENTS - FREE TEXT/NARRATIVE: Patient presents with vomiting that started about an hour before ER arrival. Her daughter says that when patient starts vomiting she can't stop. At noon today she was in [facility] and diagnosed with UTI and started on Keflex. No diarrhea or fever. She hasn't eaten or drank much today but not clear just why as the nausea didn't start before the vomiting. Back Pain Score (Numeric/FACES): 4 - Related Data Allergies Allergy/AdvReac Type Severity Reaction Status Date / Time Anesthetics - Lucy Type- Allergy Edema Verified 09/18/19 20:56 Parabens [Anesthetics - Lucy Type] hydromorphone HCl Allergy Lightheaded Verified 09/18/19 20:56 [From Dilaudid] ness prochlorperazine edisylate Allergy Bronchospas Verified 09/18/19 20:56 [From Compazine] ms prochlorperazine maleate Allergy Bronchospas Verified 09/18/19 20:56 [From Compazine] ms propoxyphene HCl Allergy Nausea and Verified 09/18/19 20:56 [From Darvon] Vomiting novacaine Allergy Severe Swollen Uncoded 06/20/19 04:01 Tongue Home Meds: Home Meds Aspirin [Ecotrin EC] 325 mg PO DAILY 05/02/14 [History] Calcium Carbonate/Vitamin D3 [Calcium 500-Vit D3 200 Tablet] 1 tab PO DAILY [History] Cyclobenzaprine [Flexeril] 10 mg PO BEDTIME PRN 05/02/14 [History] Furosemide [Lasix] 40 mg PO DAILY 05/02/14 [History] Multivitamin [One Daily Multivitamin] 1 tab PO DAILY 05/02/14 [History] Omeprazole 20 mg PO DAILY PRN 05/02/14 [History] Morphine PF [Infumorph] 6.117 mg ITHECAL DAILY 05/03/14 [History] Carvedilol [Coreg] 6.25 mg PO DAILY 05/06/14 [History] Potassium Chloride [Klor-Con 10] 10 meq PO DAILY 07/08/17 [History] Magnesium Oxide [Magnesium] 400 mg PO DAILY 08/10/17 [History] Promethazine [Phenergan] 0.4 ml TOP Q6H PRN 08/10/17 [History] Amoxicillin 500 mg PO ASDIRECTED PRN 05/24/19 [History] Lisinopril 30 mg PO DAILY 05/24/19 [History] Cephalexin [Keflex] 500 mg PO TID #21 capsule 06/15/19 [Rx] Past Medical History HEENT History: Reports: Cataract, Impaired Vision Cardiovascular History: Reports: Arrhythmia, Heart Failure, Hypertension, Pacemaker Respiratory History: Reports: Other (See Below) Other Respiratory History: nodule in chest Gastrointestinal History: Reports: Chronic Constipation, GERD 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 History: Reports: None 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: Musculoskeletal History: Reports: Arthritis, Back Pain, Chronic, Osteoarthritis , Osteoporosis Neurological History: Reports: Migraines Psychiatric History: Reports: Anxiety Hematologic History: Reports: Blood Transfusion(s) - Infectious Disease History Infectious Disease History: Reports: Chicken Pox, Measles, Mumps, Pertussis ( Whooping Cough), Shingles - Past Surgical History Head Surgeries/Procedures: Reports: None Cardiovascular Surgical History: Reports: Other (See Below) Other Cardiovascular Surgeries/Procedures: PACEMAKER Respiratory Surgical History: Reports: Lung Biopsies GI Surgical History: Reports: Appendectomy, Cholecystectomy, Colonoscopy Female Surgical History: Reports: Hysterectomy Neurological Surgical History: Reports: Other (See Below) Other Neurological Surgeries/Procedures: back surgery Musculoskeletal Surgical History: Reports: Hip Replacement, Knee Replacement, Shoulder Replacement Other Musculoskeletal Surgeries/Procedures:: REVERSE SHOULDERS, BACK SURGERIES x3 Social & Family History - Family History Family Medical History: Noncontributory Cardiac: Reports: CAD, Heart Valve Replacement, [place] - Tobacco Use Smoking Status *Q: Never Smoker - Caffeine Use Caffeine Use: Reports: Coffee - Recreational Drug Use Recreational Drug Use: No ED ROS GENERAL - Review of Systems Review Of Systems: See Below Constitutional: Denies: Fever, Chills, Malaise HEENT: Denies: Ear Pain, Throat Pain, Vision Change Respiratory: Denies: Shortness of Breath, Cough Cardiovascular: Denies: Chest Pain, Lightheadedness, Syncope GI/Abdominal: Reports: Nausea, Vomiting. Denies: Abdominal Pain, Diarrhea : Reports: Dysuria. Denies: Flank Pain Musculoskeletal: Reports: No Symptoms Skin: Reports: No Symptoms Neurological: Reports: No Symptoms Psychiatric: Denies: Agitation, Anxiety, Confusion ED EXAM, GI/ABD - Physical Exam Exam: See Below Exam Limited By: No Limitations General Appearance: Alert, WD/WN, No Apparent Distress Eyes: Bilateral: Normal Appearance, EOMI Ears: Normal External Exam, Hearing Grossly Normal Nose: Normal Inspection, No Blood Throat/Mouth: Normal Inspection, Normal Lips, Normal Voice, No Airway Compromise Head: Atraumatic, Normocephalic Neck: Normal Inspection, Supple, Non-Tender, Full Range of Motion Respiratory/Chest: No Respiratory Distress, Lungs Clear, Normal Breath Sounds ( slight atelectasis in bilat bases on auscultation) Cardiovascular: Normal Peripheral Pulses, Regular Rate, Rhythm, No Edema, No Murmur GI/Abdominal Exam: Normal Bowel Sounds, Soft, Tender (suprapubic), Other (RUQ pain pump for chronic back pain) Back Exam: Normal Inspection, Full Range of Motion. No: CVA Tenderness (L), CVA Tenderness (R) Extremities: Normal Inspection, Normal Range of Motion, No Pedal Edema Neurological: Alert, Oriented, Normal Cognition, No Motor/Sensory Deficits Psychiatric: Normal Affect, Normal Mood Skin Exam: Warm, Dry, Intact, Normal Color, No Rash Course - Vital Signs Last Recorded V/S: Last Vital Signs Temp 98.9 F 09/18/19 20:57 Pulse 91 09/18/19 20:57 Resp 18 09/18/19 20:57 BP 139/78 09/18/19 20:57 Pulse Ox 92 L 09/18/19 20:57 - Orders/Labs/Meds Labs: Laboratory Tests 09/18/19 09/18/19 Range/Units 21:15 21:15 WBC 8.60 (5.00-10.00) 10^3/uL RBC 4.46 (3.80-5.50) 10^6/uL Hgb 14.2 (12.0-16.0) g/dL Hct 39.8 (37.0-47.0) % MCV 89.2 D (82.0-92.0) fL MCH 31.8 H (27.0-31.0) pg MCHC 35.7 (32.0-36.0) g/dL RDW 12.4 (11.5-14.5) % Plt Count 147 L (150-400) 10^3/uL MPV 10.9 H (7.4-10.4) fL Immature Gran % (Auto) 0.0 (0.0-5.0) % Neut % (Auto) 74.4 H (50.0-70.0) % Lymph % (Auto) 13.3 L (20.0-40.0) % [place] % (Auto) 11.0 H (2.0-8.0) % Eos % (Auto) 1.2 (1.0-3.0) % Baso % (Auto) 0.1 (0.0-1.0) % Immature Gran # (Auto) 0.00 (0.00-0.50) 10^3/uL Neut # (Auto) 6.40 (2.50-7.00) 10^3/uL Lymph # (Auto) 1.14 (1.00-4.00) 10^3/uL [place] # (Auto) 0.95 H (0.10-0.80) 10^3/uL Eos # (Auto) 0.10 (0.10-0.30) 10^3/uL Baso # (Auto) 0.01 (0.00-0.10) 10^3/uL Sodium 141 (136-145) mmol/L Potassium 3.7 (3.3-5.3) mmol/L Chloride 102 (98-115) mmol/L Carbon Dioxide 27.0 (21.0-32.0) mmol/L Anion Gap 15.7 H (5-15) mmol/L BUN 23 (6-25) mg/dL Creatinine 1.07 (0.51-1.17) mg/dL Est Cr Clr Drug Dosing 27.11 mL/min Estimated GFR (MDRD) 49 mL/min Glucose 142 H (75 - 99) mg/dL Calcium 9.4 (8.7-10.3) mg/dL Total Bilirubin 0.6 (0.2-1.0) mg/dL AST 27 (15-37) U/L ALT 34 (12-78) U/L Alkaline Phosphatase 72 (46-116) IU/L Total Protein 7.2 (6.4-8.2) g/dL Albumin 3.63 (3.00-4.80) g/dL Meds: Medications Discontinued Medications Generic Name Dose Route Start Last Admin Trade Name Don PRN Reason Stop Dose Admin Sodium Chloride 1,000 mls @ 999 mls/hr 09/18/19 21:23 09/18/19 21:34 Normal Saline IV 09/18/19 22:23 999 mls/hr .BOLUS ONE Administration Ondansetron HCl 4 mg 09/18/19 21:23 09/18/19 21:34 Zofran IVPUSH 09/18/19 21:24 4 mg ONETIME ONE Administration Ondansetron HCl 4 mg 09/18/19 22:37 Zofran IVPUSH 09/18/19 22:38 ONETIME ONE Ondansetron HCl 16 mg 09/18/19 22:38 Zofran Odt PO 09/18/19 22:39 ONETIME ONE - Re-Assessments/Exams Free Text/Narrative Re-Assessment/Exam: 09/18/19 22:41 Labs okay. Patient feeling much better after fluids and Zofran. Discussed findings and treatment plan with her and her daughter. Will send some Zofran ODT home with them in case they need more tonight. Discharged to home in stable condition. Departure - Departure Time of Disposition: 22:39 Disposition: Home, Self-Care 01 Condition: Good Clinical Impression: Hypovolemia Nausea & vomiting Qualifiers: Vomiting type: unspecified Vomiting Intractability: unspecified Qualified Code( s): R11.2 - Nausea with vomiting, unspecified - Discharge Information Instructions: Nausea and Vomiting, Adult, [id number] Referrals: Erin Marcus MD [Primary Care Provider] - Forms: ED Department Discharge Additional Instructions: 1. Drink 8 cups of water daily. 2. Use the Zofran tablets as directed if nausea returns. 3. Follow up with your PCP in 1-2 days if this worsens or persists. 4. Return to ER as needed.
[2019-09-18 22:02] LABS: ANION GAP 15.7 mmol/L (5-15)
[2019-09-18] MEDS ORDERED: Ondansetron 4 MG Tab.DIS PO ONE (22:38)
[2019-09-19 04:30] VITALS: BP 147/76; PULSE 96
== END 2019-09-18 23:33 | disposition home or self-care (01) ==
LOC: KA.ED 20:45
DX: E86.1 Hypovolemia (principal); R11.2 Nausea with vomiting, unspecified; I10 Essential (primary) hypertension; K21.9 Gastro-esophageal reflux disease without esophagitis; Z88.8 Allergy status to other drugs, medicaments and biological substances; Z79.82 Long term (current) use of aspirin; Z79.899 Other long term (current) drug therapy
CPT/HCPCS: 36415; 80053; 85025; 99284; A9270-GY; J2405; J7030

== ENCOUNTER 2020-12-14 21:34 | Observation (INO) | payer MEDICARE, BC ==
[2020-12-14] MEDS ORDERED: Sodium Chloride 0.9% 10 ML Syringe FLUSH PRN (21:42)
[2020-12-14] MEDS ORDERED: Ondansetron 4 MG/2 ML SDV IVPUSH ONE (21:43)
--- NOTE | 2020-12-14 21:43 | EDM.PDOC ---
ED HPI GENERAL MEDICAL PROBLEM - General Chief Complaint: General Stated Complaint: Nausea, vomiting Time Seen by Provider: 12/14/20 21:39 Source of Information: Reports: Patient - History of Present Illness INITIAL COMMENTS - FREE TEXT/NARRATIVE: Pam, 85-year-old female, presents by ambulance with extreme nausea and emesis. Emesis is been occurring at home with yellow bile content. She states she had a normal bowel movement this morning that was slightly firmer than usual. She denies any Covid exposure or risks. She denies intake of anything that would not agree with her and denies being deh ydrated. She states she has not had issues like this since she had her gallbladder removed some years ago. She has been doing well with her chronic back pain managed with Medtronic pump as well as her Medtronic pacemaker with no concerns. She denies chest pain shortness of breath although we note she is somewhat low saturation on her arrival to which she replies "I am always making bells and wh istles go off and being told to take deep breaths." Onset: Today, Sudden Duration: Hour(s): Location: Reports: Abdomen - Related Data Allergies Allergy/AdvReac Type Severity Reaction Status Date / Time Anesthetics - Lucy Type- Allergy Edema Verified 09/18/19 20:56 Parabens [Anesthetics - Lucy Type] hydromorphone HCl Allergy Lightheaded Verified 09/18/19 20:56 [From Dilaudid] ness meperidine [From Demerol] Allergy Other Verified 12/14/20 21:39 prochlorperazine edisylate Allergy Bronchospas Verified 09/18/19 20:56 [From Compazine] ms prochlorperazine maleate Allergy Bronchospas Verified 09/18/19 20:56 [From Compazine] ms propoxyphene HCl Allergy Nausea and Verified 09/18/19 20:56 [From Darvon] Vomiting novacaine Allergy Severe Swollen Uncoded 06/20/19 04:01 Tongue Home Meds: Home Meds Aspirin [Ecotrin EC] 325 mg PO DAILY 05/02/14 [History] Calcium Carbonate/Vitamin D3 [Calcium 500-Vit D3 200 Tablet] 1 tab PO DAILY 05/02/14 [History] Cyclobenzaprine [Flexeril] 10 mg PO BEDTIME PRN 05/02/14 [History] Furosemide [Lasix] 40 mg PO DAILY 05/02/14 [History] Multivitamin [One Daily Multivitamin] 1 tab PO DAILY 05/02/14 [History] Omeprazole 20 mg PO DAILY PRN 05/02/14 [History] Morphine PF [Infumorph] 6.117 mg ITHECAL DAILY 05/03/14 [History] carvediloL [Coreg] 6.25 mg PO DAILY 05/06/14 [History] Potassium Chloride [Klor-Con 10] 10 meq PO DAILY 07/08/17 [History] Magnesium Oxide [Magnesium] 400 mg PO DAILY 08/10/17 [History] Promethazine [Phenergan] 0.4 ml TOP Q6H PRN 08/10/17 [History] Amoxicillin 500 mg PO ASDIRECTED PRN 05/24/19 [History] Lisinopril 30 mg PO DAILY 05/24/19 [History] Past Medical History HEENT History: Reports: Cataract, Impaired Vision Cardiovascular History: Reports: Arrhythmia, Heart Failure, Hypertension, Pacemaker Respiratory History: Reports: Other (See Below) Other Respiratory History: nodule in chest Gastrointestinal History: Reports: Chronic Constipation, GERD 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 History: Reports: 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: Musculoskeletal History: Reports: Arthritis, Back Pain, Chronic, Osteoarthritis, Osteoporosis Neurological History: Reports: Migraines Psychiatric History: Reports: Anxiety Hematologic History: Reports: Blood Transfusion(s) - Infectious Disease History Infectious Disease History: Reports: Chicken Pox, Measles, Mumps, Pertussis (Whooping Cough), Shingles - Past Surgical History Head Surgeries/Procedures: Reports: None Cardiovascular Surgical History: Reports: Other (See Below) Other Cardiovascular Surgeries/Procedures: PACEMAKER Respiratory Surgical History: Reports: Lung Biopsies GI Surgical History: Reports: Appendectomy, Cholecystectomy, Colonoscopy Female Surgical History: Reports: Hysterectomy Neurological Surgical History: Reports: Other (See Below) Other Neurological Surgeries/Procedures: back surgery Musculoskeletal Surgical History: Reports: Hip Replacement, Knee Replacement, Shoulder Replacement Other Musculoskeletal Surgeries/Procedures:: REVERSE SHOULDERS, BACK SURGERIES x3 Social & Family History - Family History Family Medical History: No Pertinent Family History Cardiac: Reports: CAD, Heart Valve Replacement, [place] - Tobacco Use Tobacco Use Within Last Twelve Months: No - Caffeine Use Caffeine Use: Reports: Coffee ED ROS GENERAL - Review of Systems Review Of Systems: Comprehensive ROS is negative, except as noted in HPI. ED EXAM, GENERAL - Physical Exam Exam: See Below Free Text/Narrative:: Alert, oriented in mild nausea distress. Zofran had been administered in the ambulance with significant improvement. Only 1 emesis since then. HEENT is negative discharge or deformity she does not have her dentures in. PERRLA with no icterus no injection. Neck is soft supple no lymphadenopathy no rigidity. Thorax is mildly diminished with no wheezes no crackles. Cardiac is a regular rate with no appreciated murmur. Abdomen is somewhat distended and tympanic with hypoactive bowel sounds. She denies pain but states a significant pressure during palpation. No flank pain noted. Lower extremities have +1 edema skin is warm and dry radial pulse correlates with apical heart rate. Oxygen saturations in the low 80s come up nicely with the administration of 2 L nasal cannula to which she states she cannot really tell the difference in her breathing. No back pain or radiation pain from the abdominal pressure. #1 Interpretation EKG Date: 12/14/20 Time: 21:55 Rate (Beats/Min): 70 (PACED) Comparison: NA - No Prior EKG Course - Vital Signs Last Recorded V/S: Last Vital Signs Temp 97.2 F 12/14/20 21:42 Pulse 80 12/14/20 22:27 Resp 20 12/14/20 22:27 BP 90/70 12/14/20 22:27 Pulse Ox 91 L 12/14/20 22:27 - Orders/Labs/Meds Orders: Active Orders 24 hr Category Date Time Status Patient Status [ADT] Routine ADT 12/14/20 23:32 Ordered Oxygen Therapy [RC] PRN Care 12/14/20 23:31 Ordered Peripheral IV Care [RC] . DIRECTED Care 12/14/20 21:43 Active NPO [Nothing Per Oral Diet] [DIET] Diet 12/15/20 Breakfast Ordered Abdomen 1V Upright [CR] Stat Exams 12/14/20 22:40 Stop Req Abdomen Series w Chest 1V [CR] Stat Exams 12/14/20 21:41 Stop Req Chest 1V Frontal [CR] Stat Exams 12/14/20 22:40 Stop Req Sodium Chloride 0.9% @ 125 MLS/HR (1000ml) Med 12/14/20 23:45 Ordered Sodium Chloride 0.9% [Normal Saline] 1,000 ml IV ASDIRECTED Sodium Chloride 0.9% [Saline Flush] Med 12/14/20 21:42 Active 10 ml FLUSH Q8HR PRN NG [Nasogastric Orogastric Tube Insertion] [OM.PC] Oth 12/14/20 22:40 Ordered Routine Peripheral IV Insertion Adult [OM.PC] Routine Oth 12/14/20 21:43 Ordered Code Status [Resuscitation Status] Stat Resus Stat 12/14/20 23:31 Ordered EKG 12 Lead [EK] Urgent Ther 12/14/20 21:41 Stop Req Medication Orders Sodium Chloride (Normal Saline) 1,000 mls @ 125 mls/hr IV ASDIRECTED KAROL Sodium Chloride (Saline Flush) 10 ml FLUSH Q8HR PRN PRN Reason: keep vein open Labs: Laboratory Tests 12/14/20 12/14/20 12/14/20 Range/Units 21:30 21:30 21:50 WBC 7.29 (5.00-10.00) 10^3/uL RBC 5.14 (3.80-5.50) 10^6/uL Hgb 15.5 (12.0-16.0) g/dL Hct 46.3 (37.0-47.0) % MCV 90.1 (82.0-92.0) fL MCH 30.2 (27.0-31.0) pg MCHC 33.5 (32.0-36.0) g/dL RDW 13.0 (11.5-14.5) % Plt Count 193 (150-400) 10^3/uL MPV 11.6 H (7.4-10.4) fL Immature Gran % (Auto) 0.0 (0.0-5.0) % Neut % (Auto) 68.6 (50.0-70.0) % Lymph % (Auto) 21.4 (20.0-40.0) % [place] % (Auto) 8.6 H (2.0-8.0) % Eos % (Auto) 1.1 (1.0-3.0) % Baso % (Auto) 0.3 (0.0-1.0) % Neut # (Auto) 5.00 (2.50-7.00) 10^3/uL Lymph # (Auto) 1.56 (1.00-4.00) 10^3/uL [place] # (Auto) 0.63 (0.10-0.80) 10^3/uL Eos # (Auto) 0.08 L (0.10-0.30) 10^3/uL Baso # (Auto) 0.02 (0.00-0.10) 10^3/uL Immature Gran # (Auto) 0.00 (0.00-0.50) 10^3/uL Sodium 141 (136-145) mmol/L Potassium 3.8 (3.5-5.1) mmol/L Chloride 101 (98-107) mmol/L Carbon Dioxide 29.6 (21.0-32.0) mmol/L Anion Gap 14.2 (5-15) mmol/L BUN 25 H (7-18) mg/dL Creatinine 0.90 (0.51-1.17) mg/dL Est Cr Clr Drug Dosing 31.63 mL/min Estimated GFR (MDRD) 59 mL/min Glucose 168 H (70-140) mg/dL Lactic Acid 1.3 (0.4-2.0) mmol/L Calcium 9.6 (8.7-10.3) mg/dL Total Bilirubin 0.7 (0.2-1.0) mg/dL AST 20 (15-37) U/L ALT 31 (14-63) U/L Alkaline Phosphatase 68 (46-116) U/L Creatine Kinase 36 (26-276) U/L CK-MB (CK-2) 1.07 (0.00-3.60) ng/mL Troponin I < 0.017 (0.000-0.056) ng/mL Total Protein 7.9 (6.4-8.2) g/dL Albumin 3.73 (3.40-5.00) g/dL Amylase 59 (25-125) U/L Lipase 100 (73-393) U/L Specimen Type Urine Color (YELLOW) Urine Appearance (CLEAR) Urine pH (5.0-9.0) Ur Specific [place] (1.005-1.030) Urine Protein (NEGATIVE) mg/dL Urine Glucose (UA) (NEGATIVE) mg/dL Urine Ketones (NEGATIVE) mg/dL Urine Occult Blood (NEGATIVE) Urine Nitrite (NEGATIVE) Urine Bilirubin (NEGATIVE) Urine Urobilinogen (0.2-1.0) E.U./dL Ur Leukocyte Esterase (NEGATIVE) Urine RBC (0-5) /HPF Urine WBC (0-5) /HPF Ur Epithelial Cells /LPF Amorphous Sediment (0/HPF) /HPF Urine Bacteria (NONE TO FEW) /HPF SARS CoV-2 RNA Rapid MARY (NEGATIVE) 12/14/20 12/14/20 Range/Units 22:27 23:00 WBC (5.00-10.00) 10^3/uL RBC (3.80-5.50) 10^6/uL Hgb (12.0-16.0) g/dL Hct (37.0-47.0) % MCV (82.0-92.0) fL MCH (27.0-31.0) pg MCHC (32.0-36.0) g/dL RDW (11.5-14.5) % Plt Count (150-400) 10^3/uL MPV (7.4-10.4) fL Immature Gran % (Auto) (0.0-5.0) % Neut % (Auto) (50.0-70.0) % Lymph % (Auto) (20.0-40.0) % [place] % (Auto) (2.0-8.0) % Eos % (Auto) (1.0-3.0) % Baso % (Auto) (0.0-1.0) % Neut # (Auto) (2.50-7.00) 10^3/uL Lymph # (Auto) (1.00-4.00) 10^3/uL [place] # (Auto) (0.10-0.80) 10^3/uL Eos # (Auto) (0.10-0.30) 10^3/uL Baso # (Auto) (0.00-0.10) 10^3/uL Immature Gran # (Auto) (0.00-0.50) 10^3/uL Sodium (136-145) mmol/L Potassium (3.5-5.1) mmol/L Chloride (98-107) mmol/L Carbon Dioxide (21.0-32.0) mmol/L Anion Gap (5-15) mmol/L BUN (7-18) mg/dL Creatinine (0.51-1.17) mg/dL Est Cr Clr Drug Dosing mL/min Estimated GFR (MDRD) mL/min Glucose (70-140) mg/dL Lactic Acid (0.4-2.0) mmol/L Calcium (8.7-10.3) mg/dL Total Bilirubin (0.2-1.0) mg/dL AST (15-37) U/L ALT (14-63) U/L Alkaline Phosphatase (46-116) U/L Creatine Kinase (26-276) U/L CK-MB (CK-2) (0.00-3.60) ng/mL Troponin I (0.000-0.056) ng/mL Total Protein (6.4-8.2) g/dL Albumin (3.40-5.00) g/dL Amylase (25-125) U/L Lipase (73-393) U/L Specimen Type Urincc Urine Color Yellow (YELLOW) Urine Appearance Slightly cloudy H (CLEAR) Urine pH 7.0 (5.0-9.0) Ur Specific [place] 1.025 (1.005-1.030) Urine Protein Negative (NEGATIVE) mg/dL Urine Glucose (UA) Negative (NEGATIVE) mg/dL Urine Ketones Negative (NEGATIVE) mg/dL Urine Occult Blood Trace-intact H (NEGATIVE) Urine Nitrite Negative (NEGATIVE) Urine Bilirubin Negative (NEGATIVE) Urine Urobilinogen 0.2 (0.2-1.0) E.U./dL Ur Leukocyte Esterase Negative (NEGATIVE) Urine RBC 5-10 H (0-5) /HPF Urine WBC 0-5 (0-5) /HPF Ur Epithelial Cells Few /LPF Amorphous Sediment Few (0/HPF) /HPF Urine Bacteria Few (NONE TO FEW) /HPF SARS CoV-2 RNA Rapid MARY Negative (NEGATIVE) Meds: Medications Generic Name Dose Route Start Last Admin Trade Name Freq PRN Reason Stop Dose Admin Sodium Chloride 1,000 mls @ 125 mls/hr 12/14/20 23:45 Normal Saline IV ASDIRECTED KAROL Sodium Chloride 10 ml 12/14/20 21:42 Saline Flush FLUSH Q8HR PRN keep vein open Discontinued Medications Generic Name Dose Route Start Last Admin Trade Name Freq PRN Reason Stop Dose Admin Lidocaine HCl 15 ml 12/14/20 22:38 Xylocaine 2% Viscous PO 12/14/20 22:39 ONETIME ONE Ondansetron HCl 8 mg 12/14/20 21:43 Zofran IVPUSH 12/14/20 21:44 ONETIME ONE - Radiology Interpretation Free Text/Narrative:: .Multiple small air-fluid levels throughout abdomen and pelvis. Gaseous distention of the bowel loops with no severe dilatation pneumoperitoneum or pneumatosis. Nonspecific bowel gas pattern with several air-fluid levels with questionable enteritis versus bowel obstruction. Follow-up recommended - Re-Assessments/Exams Free Text/Narrative Re-Assessment/Exam: 12/14/20 23:35 Unable to tolerate NG tube placement. withdrawn with no further attempt. Departure - Departure Time of Disposition: 23:27 Disposition: Refer to Observation Condition: Fair Clinical Impression: COVID-19 ruled out by laboratory testing, Small bowel obstruction, Vomiting - Discharge Information *PRESCRIPTION DRUG MONITORING PROGRAM REVIEWED*: Not Applicable *COPY OF PRESCRIPTION DRUG MONITORING REPORT IN PATIENT LB: Not Applicable Referrals: Talon Heath, FI[employer] EXTINGUISHER CHARGER [Nurse Practitioner] - Forms: ED Department Discharge Additional Instructions: Admit observation [place] per Shannan Ching. Sepsis Event Note (ED) - Focused Exam Vital Signs: Vital Signs Temp Pulse Resp BP Pulse Ox 12/14/20 22:27 80 20 90/70 91 L 12/14/20 21:42 97.2 F 77 24 H 150/70 H 86 L ED Communication - ED Communication Date/Time Date: 12/14/20 Time Called: 23:25 - Discussed Case With (1) Discussed Case With (1): Admitting Provider Person/s Notified (1): Shannan ching ([place] provider on calll) - Problem List & Annotations (1) Small bowel obstruction SNOMED Code(s): 164698658 Code(s): K56.609 - UNSP INTESTNL OBST, UNSP TO PARTIAL VERSUS COMPLETE OBST Status: Acute Priority: High (2) Enteritis SNOMED Code(s): 08644073 Code(s): K52.9 - NONINFECTIVE GASTROENTERITIS AND COLITIS, UNSPECIFIED Status: Acute Priority: High (3) Nausea & vomiting SNOMED Code(s): 62470661 Code(s): R11.2 - NAUSEA WITH VOMITING, UNSPECIFIED Status: Acute Priority: High Qualifiers: Vomiting type: unspecified Vomiting Intractability: non-intractable Qualified Code(s): R11.2 - Nausea with vomiting, unspecified (4) COVID-19 ruled out by laboratory testing SNOMED Code(s): 453147846042872737, 746046402193993621 Code(s): Z20.822 - CONTACT WITH AND (SUSPECTED) EXPOSURE TO COVID-19 Status: Acute Priority: High - Problem List Review Problem List Initiated/Reviewed/Updated: Yes - My Orders Last 24 Hours: My Active Orders 12/14/20 21:41 Abdomen Series w Chest 1V [CR] Stat EKG 12 Lead [EK] Urgent 12/14/20 21:42 Sodium Chloride 0.9% [Saline Flush] 10 ml FLUSH Q8HR PRN 12/14/20 21:43 Peripheral IV Care [RC] . DIRECTED Peripheral IV Insertion Adult [OM.PC] Routine 12/14/20 22:40 Abdomen 1V Upright [CR] Stat Chest 1V Frontal [CR] Stat NG [Nasogastric Orogastric Tube Insertion] [OM.PC] Routine 12/14/20 23:31 Oxygen Therapy [RC] PRN Code Status [Resuscitation Status] Stat 12/14/20 23:32 Patient Status [ADT] Routine 12/14/20 23:45 Sodium Chloride 0.9% @ 125 MLS/HR (1000ml) Sodium Chloride 0.9% [Normal Saline] 1,000 ml IV ASDIRECTED 12/15/20 Breakfast NPO [Nothing Per Oral Diet] [DIET] - Assessment/Plan Last 24 Hours: My Active Orders 12/14/20 21:41 Abdomen Series w Chest 1V [CR] Stat EKG 12 Lead [EK] Urgent 12/14/20 21:42 Sodium Chloride 0.9% [Saline Flush] 10 ml FLUSH Q8HR PRN 12/14/20 21:43 Peripheral IV Care [RC] . DIRECTED Peripheral IV Insertion Adult [OM.PC] Routine 12/14/20 22:40 Abdomen 1V Upright [CR] Stat Chest 1V Frontal [CR] Stat NG [Nasogastric Orogastric Tube Insertion] [OM.PC] Routine 12/14/20 23:31 Oxygen Therapy [RC] PRN Code Status [Resuscitation Status] Stat 12/14/20 23:32 Patient Status [ADT] Routine 12/14/20 23:45 Sodium Chloride 0.9% @ 125 MLS/HR (1000ml) Sodium Chloride 0.9% [Normal Saline] 1,000 ml IV ASDIRECTED 12/15/20 Breakfast NPO [Nothing Per Oral Diet] [DIET] Plan: Admit observation [place] per Shannan Ching.
[2020-12-14] MEDS ORDERED: Lidocaine 2% Viscous Solution 15 ML Cup PO ONE (22:38)
[2020-12-14 22:49] LABS: ANION GAP 14.2 mmol/L (5-15); CHLORIDE,CL 101 mmol/L (98-107); SODIUM,NA 141 mmol/L (136-145)
[2020-12-15] MEDS ORDERED: Ondansetron 4 MG/2 ML SDV IVPUSH PRN (00:17)
[2020-12-15] MEDS: Sodium Chloride 0.9% 1,000 ML IV SCH ×4 (00:40→22:32)
[2020-12-15 08:02] LABS: ANION GAP 7.3 mmol/L (5-15)
--- NOTE | 2020-12-15 08:34 | CR ---
[id number] RAD/RAD Abdomen 3V EXAM: RAD Abdomen 3V INDICATION: ABDOMEN PAIN, NAUSEA/VOMITING COMPARISON: May 23, 2019. FINDINGS: There are scattered dilated small bowel loops which measure up to about 38 mm and air-fluid level seen scattered throughout the small and large bowel. These findings could relate to an early/partial small bowel obstruction or an ileus. Mildly prominent stool volume within the colon. Possible changes of ankylosing spondylitis. Bilateral hip arthroplasties. Intrathecal pump catheter projecting over the thoracic spinal canal. Left subclavian approach pacemaker leads RA and RV. Bilateral shoulder arthroplasties. The heart is normal in size. Possible small pleural effusions. Mild bibasilar atelectasis or scarring with no definite infiltrates. IMPRESSION: 1. Mild small bowel dilation with scattered air-fluid levels in the small and large bowel. These changes could relate to an ileus or early/partial obstruction. Abdomen and pelvis CT with IV contrast could provide further characterization. Oracio Anaya MD 12/15/20 0832 Thank you for allowing us to participate in the care of your patient.
--- NOTE | 2020-12-15 10:59 | PCM.HP.2 ---
H&P History of Present Illness - General Date of Service: 12/15/20 Admit Problem/Dx: Admission Diagnosis/Problem Admission Diagnosis/Problem Enteritis Source of Information: Old Records, Provider, RN - Related Data Allergies/Adverse Reactions: Allergies Allergy/AdvReac Type Severity Reaction Status Date / Time Anesthetics - Lucy Type- Allergy Edema Verified 09/18/19 20:56 Parabens [Anesthetics - Lucy Type] hydromorphone HCl Allergy Lightheaded Verified 09/18/19 20:56 [From Dilaudid] ness meperidine [From Demerol] Allergy Other Verified 12/14/20 21:39 prochlorperazine edisylate Allergy Bronchospas Verified 09/18/19 20:56 [From Compazine] ms prochlorperazine maleate Allergy Bronchospas Verified 09/18/19 20:56 [From Compazine] ms propoxyphene HCl Allergy Nausea and Verified 09/18/19 20:56 [From Darvon] Vomiting novacaine Allergy Severe Swollen Uncoded 06/20/19 04:01 Tongue Home Medications: Home Meds Aspirin [Ecotrin EC] 325 mg PO DAILY 05/02/14 [History] Calcium Carbonate/Vitamin D3 [Calcium 500-Vit D3 200 Tablet] 1 tab PO DAILY 05/02/14 [History] Cyclobenzaprine [Flexeril] 10 mg PO BEDTIME PRN 05/02/14 [History] Furosemide [Lasix] 40 mg PO DAILY 05/02/14 [History] Multivitamin [One Daily Multivitamin] 1 tab PO DAILY 05/02/14 [History] Omeprazole 20 mg PO DAILY PRN 05/02/14 [History] Morphine PF [Infumorph] 6.117 mg ITHECAL DAILY 05/03/14 [History] carvediloL [Coreg] 3.125 mg PO BIDMEALS 05/06/14 [History] Potassium Chloride [Klor-Con 10] 10 meq PO DAILY 07/08/17 [History] Magnesium Oxide [Magnesium] 400 mg PO DAILY 08/10/17 [History] Promethazine [Phenergan] 0.4 ml TOP Q6H PRN 08/10/17 [History] Amoxicillin 500 mg PO ASDIRECTED PRN 05/24/19 [History] Lisinopril 30 mg PO DAILY 05/24/19 [History] Past Medical History HEENT History: Reports: Cataract, Impaired Vision Cardiovascular History: Reports: Arrhythmia, Heart Failure, Hypertension, Pacemaker Respiratory History: Reports: Other (See Below) Other Respiratory History: nodule in chest Gastrointestinal History: Reports: Chronic Constipation, GERD 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 History: Reports: None 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 History: Reports: Musculoskeletal History: Reports: Arthritis, Back Pain, Chronic, Osteoarthritis, Osteoporosis Neurological History: Reports: Migraines Psychiatric History: Reports: Anxiety Hematologic History: Reports: Blood Transfusion(s) - Infectious Disease History Infectious Disease History: Reports: Chicken Pox, Measles, Mumps, Pertussis (Whooping Cough), Shingles - Past Surgical History Head Surgeries/Procedures: Reports: None HEENT Surgical History: Reports: None Cardiovascular Surgical History: Reports: Other (See Below) Other Cardiovascular Surgeries/Procedures: PACEMAKER Respiratory Surgical History: Reports: Lung Biopsies GI Surgical History: Reports: Appendectomy, Cholecystectomy, Colonoscopy Female Surgical History: Reports: Hysterectomy Neurological Surgical History: Reports: Other (See Below) Other Neurological Surgeries/Procedures: back surgery Musculoskeletal Surgical History: Reports: Hip Replacement, Knee Replacement, Shoulder Replacement Other Musculoskeletal Surgeries/Procedures:: REVERSE SHOULDERS, BACK SURGERIES x3 Social & Family History - Family History Family Medical History: No Pertinent Family History Cardiac: Reports: CAD, Heart Valve Replacement, [place] - Tobacco Use Tobacco Use Status *Q: Never Tobacco User - Caffeine Use Caffeine Use: Reports: Coffee - Recreational Drug Use Recreational Drug Use: No H&P Review of Systems - Review of Systems: Review Of Systems: See Below General: Denies: Fever, Chills, Malaise, Weakness, Fatigue HEENT: Reports: No Symptoms Pulmonary: Reports: No Symptoms Cardiovascular: Reports: No Symptoms Gastrointestinal: Denies: Abdominal Pain, Constipation, Diarrhea, Difficulty Swallowing, Nausea, Vomiting 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: Reports: No Symptoms Musculoskeletal: Reports: Back Pain (she contributes to her pain 2/2 bed. ) Skin: Reports: Pallor Psychiatric: Denies: Confusion, Anxiety Neurological: Reports: Pre-Existing Deficit, Difficulty Walking. Denies: Confusion, Dizziness Hematologic/Lymphatic: Reports: No Symptoms Immunologic: Reports: No Symptoms Exam - Exam Exam: See Below - Vital Signs Vital Signs: Last Vital Signs Temp 97.8 F 12/15/20 06:31 Pulse 70 12/15/20 06:31 Resp 20 12/15/20 06:31 BP 122/50 L 12/15/20 06:31 Pulse Ox 95 12/15/20 06:31 Weight: 169 lb - Exam Quality Assessment: No: Supplemental Oxygen General: Alert, Oriented, Cooperative. No: Mild Distress HEENT: Mucosa Moist & [place] Neck: No: JVD Cardiovascular: Regular Rate, Regular Rhythm, Normal S1, Normal S2, Systolic Murmur GI/Abdominal Exam: Soft, Distended (slight distended per patient's baseline), Other (decrease bowel tones) Back Exam: No: CVA Tenderness (L), CVA Tenderness (R) Extremities: No Pedal Edema Peripheral Pulses: 2+: Radial (L), Radial (R) Skin: Warm, Dry, Intact Neurological: Normal Speech, Sensation Intact Neuro Extensive - Mental Status: Alert, Oriented x3, Memory Intact Neuro Extensive - Motor, Sensory, Reflexes: No: Dysarthria, Abnormal Light Touch, Abnormal Motor Psychiatric: Alert, Normal Affect, Normal Mood - Patient Data Lab Results Last 24 hrs: Laboratory Results - last 24 hr 12/14/20 12/14/20 12/14/20 Range/Units 21:30 21:30 21:50 WBC 7.29 (5.00-10.00) 10^3/uL RBC 5.14 (3.80-5.50) 10^6/uL Hgb 15.5 (12.0-16.0) g/dL Hct 46.3 (37.0-47.0) % MCV 90.1 (82.0-92.0) fL MCH 30.2 (27.0-31.0) pg MCHC 33.5 (32.0-36.0) g/dL RDW 13.0 (11.5-14.5) % Plt Count 193 (150-400) 10^3/uL MPV 11.6 H (7.4-10.4) fL Immature Gran % (Auto) 0.0 (0.0-5.0) % Neut % (Auto) 68.6 (50.0-70.0) % Lymph % (Auto) 21.4 (20.0-40.0) % [place] % (Auto) 8.6 H (2.0-8.0) % Eos % (Auto) 1.1 (1.0-3.0) % Baso % (Auto) 0.3 (0.0-1.0) % Neut # (Auto) 5.00 (2.50-7.00) 10^3/uL Lymph # (Auto) 1.56 (1.00-4.00) 10^3/uL [place] # (Auto) 0.63 (0.10-0.80) 10^3/uL Eos # (Auto) 0.08 L (0.10-0.30) 10^3/uL Baso # (Auto) 0.02 (0.00-0.10) 10^3/uL Immature Gran # (Auto) 0.00 (0.00-0.50) 10^3/uL Sodium 141 (136-145) mmol/L Potassium 3.8 (3.5-5.1) mmol/L Chloride 101 (98-107) mmol/L Carbon Dioxide 29.6 (21.0-32.0) mmol/L Anion Gap 14.2 (5-15) mmol/L BUN 25 H (7-18) mg/dL Creatinine 0.90 (0.51-1.17) mg/dL Est Cr Clr Drug Dosing 31.63 mL/min Estimated GFR (MDRD) 59 mL/min Glucose 168 H (70-140) mg/dL Lactic Acid 1.3 (0.4-2.0) mmol/L Calcium 9.6 (8.7-10.3) mg/dL Total Bilirubin 0.7 (0.2-1.0) mg/dL AST 20 (15-37) U/L ALT 31 (14-63) U/L Alkaline Phosphatase 68 (46-116) U/L Creatine Kinase 36 (26-276) U/L CK-MB (CK-2) 1.07 (0.00-3.60) ng/mL Troponin I < 0.017 (0.000-0.056) ng/mL Total Protein 7.9 (6.4-8.2) g/dL Albumin 3.73 (3.40-5.00) g/dL Amylase 59 (25-125) U/L Lipase 100 (73-393) U/L Specimen Type Urine Color (YELLOW) Urine Appearance (CLEAR) Urine pH (5.0-9.0) Ur Specific [place] (1.005-1.030) Urine Protein (NEGATIVE) mg/dL Urine Glucose (UA) (NEGATIVE) mg/dL Urine Ketones (NEGATIVE) mg/dL Urine Occult Blood (NEGATIVE) Urine Nitrite (NEGATIVE) Urine Bilirubin (NEGATIVE) Urine Urobilinogen (0.2-1.0) E.U./dL Ur Leukocyte Esterase (NEGATIVE) Urine RBC (0-5) /HPF Urine WBC (0-5) /HPF Ur Epithelial Cells /LPF Amorphous Sediment (0/HPF) /HPF Urine Bacteria (NONE TO FEW) /HPF SARS CoV-2 RNA Rapid MARY (NEGATIVE) 12/14/20 12/14/20 12/15/20 Range/Units 22:27 23:00 07:30 WBC 5.08 (5.00-10.00) 10^3/uL RBC 4.41 (3.80-5.50) 10^6/uL Hgb 13.4 D (12.0-16.0) g/dL Hct 40.6 (37.0-47.0) % MCV 92.1 H (82.0-92.0) fL MCH 30.4 (27.0-31.0) pg MCHC 33.0 (32.0-36.0) g/dL RDW 13.1 (11.5-14.5) % Plt Count 153 (150-400) 10^3/uL MPV 11.0 H (7.4-10.4) fL Immature Gran % (Auto) 0.0 (0.0-5.0) % Neut % (Auto) 59.4 (50.0-70.0) % Lymph % (Auto) 27.4 (20.0-40.0) % [place] % (Auto) 12.2 H (2.0-8.0) % Eos % (Auto) 0.6 L (1.0-3.0) % Baso % (Auto) 0.4 (0.0-1.0) % Neut # (Auto) 3.02 (2.50-7.00) 10^3/uL Lymph # (Auto) 1.39 (1.00-4.00) 10^3/uL [place] # (Auto) 0.62 (0.10-0.80) 10^3/uL Eos # (Auto) 0.03 L (0.10-0.30) 10^3/uL Baso # (Auto) 0.02 (0.00-0.10) 10^3/uL Immature Gran # (Auto) 0.00 (0.00-0.50) 10^3/uL Sodium (136-145) mmol/L Potassium (3.5-5.1) mmol/L Chloride (98-107) mmol/L Carbon Dioxide (21.0-32.0) mmol/L Anion Gap (5-15) mmol/L BUN (7-18) mg/dL Creatinine (0.51-1.17) mg/dL Est Cr Clr Drug Dosing mL/min Estimated GFR (MDRD) mL/min Glucose (70-140) mg/dL Lactic Acid (0.4-2.0) mmol/L Calcium (8.7-10.3) mg/dL Total Bilirubin (0.2-1.0) mg/dL AST (15-37) U/L ALT (14-63) U/L Alkaline Phosphatase (46-116) U/L Creatine Kinase (26-276) U/L CK-MB (CK-2) (0.00-3.60) ng/mL Troponin I (0.000-0.056) ng/mL Total Protein (6.4-8.2) g/dL Albumin (3.40-5.00) g/dL Amylase (25-125) U/L Lipase (73-393) U/L Specimen Type Urincc Urine Color Yellow (YELLOW) Urine Appearance Slightly cloudy H (CLEAR) Urine pH 7.0 (5.0-9.0) Ur Specific [place] 1.025 (1.005-1.030) Urine Protein Negative (NEGATIVE) mg/dL Urine Glucose (UA) Negative (NEGATIVE) mg/dL Urine Ketones Negative (NEGATIVE) mg/dL Urine Occult Blood Trace-intact H (NEGATIVE) Urine Nitrite Negative (NEGATIVE) Urine Bilirubin Negative (NEGATIVE) Urine Urobilinogen 0.2 (0.2-1.0) E.U./dL Ur Leukocyte Esterase Negative (NEGATIVE) Urine RBC 5-10 H (0-5) /HPF Urine WBC 0-5 (0-5) /HPF Ur Epithelial Cells Few /LPF Amorphous Sediment Few (0/HPF) /HPF Urine Bacteria Few (NONE TO FEW) /HPF SARS CoV-2 RNA Rapid MARY Negative (NEGATIVE) 12/15/20 Range/Units 07:30 WBC (5.00-10.00) 10^3/uL RBC (3.80-5.50) 10^6/uL Hgb (12.0-16.0) g/dL Hct (37.0-47.0) % MCV (82.0-92.0) fL MCH (27.0-31.0) pg MCHC (32.0-36.0) g/dL RDW (11.5-14.5) % Plt Count (150-400) 10^3/uL MPV (7.4-10.4) fL Immature Gran % (Auto) (0.0-5.0) % Neut % (Auto) (50.0-70.0) % Lymph % (Auto) (20.0-40.0) % [place] % (Auto) (2.0-8.0) % Eos % (Auto) (1.0-3.0) % Baso % (Auto) (0.0-1.0) % Neut # (Auto) (2.50-7.00) 10^3/uL Lymph # (Auto) (1.00-4.00) 10^3/uL [place] # (Auto) (0.10-0.80) 10^3/uL Eos # (Auto) (0.10-0.30) 10^3/uL Baso # (Auto) (0.00-0.10) 10^3/uL Immature Gran # (Auto) (0.00-0.50) 10^3/uL Sodium 144 (136-145) mmol/L Potassium 4.2 (3.5-5.1) mmol/L Chloride 107 (98-107) mmol/L Carbon Dioxide 33.9 H (21.0-32.0) mmol/L Anion Gap 7.3 (5-15) mmol/L BUN 26 H (7-18) mg/dL Creatinine 0.93 (0.51-1.17) mg/dL Est Cr Clr Drug Dosing 30.61 mL/min Estimated GFR (MDRD) 57 mL/min Glucose 111 (70-140) mg/dL Lactic Acid (0.4-2.0) mmol/L Calcium 8.5 L (8.7-10.3) mg/dL Total Bilirubin 0.5 (0.2-1.0) mg/dL AST 16 (15-37) U/L ALT 26 (14-63) U/L Alkaline Phosphatase 55 (46-116) U/L Creatine Kinase (26-276) U/L CK-MB (CK-2) (0.00-3.60) ng/mL Troponin I (0.000-0.056) ng/mL Total Protein 6.6 (6.4-8.2) g/dL Albumin 3.13 L (3.40-5.00) g/dL Amylase (25-125) U/L Lipase (73-393) U/L Specimen Type Urine Color (YELLOW) Urine Appearance (CLEAR) Urine pH (5.0-9.0) Ur Specific [place] (1.005-1.030) Urine Protein (NEGATIVE) mg/dL Urine Glucose (UA) (NEGATIVE) mg/dL Urine Ketones (NEGATIVE) mg/dL Urine Occult Blood (NEGATIVE) Urine Nitrite (NEGATIVE) Urine Bilirubin (NEGATIVE) Urine Urobilinogen (0.2-1.0) E.U./dL Ur Leukocyte Esterase (NEGATIVE) Urine RBC (0-5) /HPF Urine WBC (0-5) /HPF Ur Epithelial Cells /LPF Amorphous Sediment (0/HPF) /HPF Urine Bacteria (NONE TO FEW) /HPF SARS CoV-2 RNA Rapid MARY (NEGATIVE) Result Diagrams: 12/15/20 07:30 12/15/20 07:30 Sepsis Event Note - Evaluation Sepsis Screening Result: No Definite Risk - Focused Exam Vital Signs: Vital Signs Temp Pulse Resp BP Pulse Ox Pulse Ox 12/15/20 06:31 97.8 F 70 20 122/50 L 95 12/15/20 02:25 96.7 F L 69 16 102/50 L 95 12/15/20 00:50 93 L 12/15/20 00:26 98.7 F 85 22 H 126/57 L 93 L 12/14/20 23:30 97.9 F 84 18 123/66 92 L Problem List Initiated/Reviewed/Updated: Yes Orders Last 24hrs: Active Orders 24 hr Category Date Time Status Patient Status [ADT] Routine ADT 12/14/20 23:32 Active Height and Weight [RC] 07 Care 12/15/20 00:02 Active Intake and Output [RC] 06,14,22 Care 12/15/20 00:03 Active Oxygen Therapy [RC] PRN Care 12/14/20 23:31 Active Oxygen Therapy [RC] PRN Care 12/15/20 00:02 Active Peripheral IV Care [RC] 09,21 Care 12/14/20 21:43 Active Up With Assistance [RC] ASDIRECTED Care 12/15/20 00:02 Active VTE/DVT Education [RC] PER UNIT ROUTINE Care 12/15/20 00:02 Active Vital Signs [RC] 03,07,11,15,19,23 Care 12/15/20 00:02 Active NPO [Nothing Per Oral Diet] [DIET] Diet 12/15/20 Breakfast Active Ondansetron [Zofran] Med 12/15/20 00:17 Active 4 mg IVPUSH Q6H PRN Sodium Chloride 0.9% [Normal Saline] 1,000 ml Med 12/14/20 23:45 Active IV ASDIRECTED Sodium Chloride 0.9% [Saline Flush] Med 12/14/20 21:42 Active 10 ml FLUSH Q8HR PRN Peripheral IV Insertion Adult [OM.PC] Routine Oth 12/14/20 21:43 Ordered Code Status [Resuscitation Status] Stat Resus Stat 12/14/20 23:31 Ordered Medication Orders Sodium Chloride (Normal Saline) 1,000 mls @ 125 mls/hr IV ASDIRECTED [facility] Admin: 12/15/20 08:48 Dose: 125 mls/hr Documented by: Infusion: 12/15/20 08:40 Dose: 125 mls/hr Documented by: Admin: 12/15/20 00:40 Dose: 125 mls/hr Documented by: DALTON Ondansetron HCl (Zofran) 4 mg IVPUSH Q6H PRN PRN Reason: Nausea/Vomiting Sodium Chloride (Saline Flush) 10 ml FLUSH Q8HR PRN PRN Reason: keep vein open Assessment/Plan Comment:: History of present illness Pam is an 85-year-old very pleasant patient who was admitted into OBS status working diagnosis of SBO/Ileus vs colitis. She had presented EMS with 1-day of significant nausea and vomiting with mild abd distention. ED Course/findings Abd Xray; mild small bowel dilation with scattered air-fluid levels in the small and large bowel POX 87%, afebrile Electroltyes good Urine creatinine liver functions normal Lactic Acid, normal Hospital course Patient was admitted kept NPO and was started on NS 125 cc/h. Today on rounds she feels much better, still slightly abdominal distention, no nausea or vomiting has had multiple bowel movements, afebrile, electrolytes normal, no chest pain no shortness of breath Primary hospital problems Ileus vs early SBO vs colitis, Keep NPO, decrease IV fluids, hold Lasix, advance diet as tolerated starting with clears this afternoon. Closely monitor the day anticipate discharge likely in a.m. We will hold off on abdominal CT at this time, nurses to report any pain or nausea or vomiting
[2020-12-15] MEDS ORDERED: Acetaminophen 325 MG Tab PO PRN (20:12)
[2020-12-16] MEDS ORDERED: PROMETHAZINE TOP PRN (09:53)
[2020-12-16] MEDS ORDERED: POTASSIUM CHLORIDE 10 MEQ PO SCH (10:00)
[2020-12-16] MEDS ORDERED: Aspirin 325 MG Tab.EC PO SCH (10:00)
[2020-12-16] MEDS ORDERED: LISINOPRIL 30 MG PO SCH (10:00)
[2020-12-16] MEDS ORDERED: FUROSEMIDE 40 MG PO SCH (10:00)
[2020-12-16] MEDS ORDERED: CARVEDILOL 6.25 MG PO SCH (10:00)
[2020-12-16 10:43] VITALS: BP 138/55; PULSE 61
--- NOTE | 2020-12-24 10:48 | PCM.DCSUM1 ---
Discharge Summary - Hospital Course Diagnosis: Stroke: No - Discharge Data Discharge Date: 12/16/20 Discharge Disposition: Home, Self-Care 01 Condition: Good - Referral to Home Health Primary Care Physician: Quita Blas MD - Patient Instructions Diet: Drink 8-10+ Glasses/Day Diet, Other: soft diet Activity: As Tolerated Driving: Do Not Drive Showering/Bathing: May Shower Notify Provider of: Fever, Increased Pain, Nausea and/or Vomiting Other/Special Instructions: Very important to let us know if you have any vomiting, stomach pains, abdominal distention nausea and lack of bowel movements - Discharge Plan *PRESCRIPTION DRUG MONITORING PROGRAM REVIEWED*: Not Applicable (pain pumps) *COPY OF PRESCRIPTION DRUG MONITORING REPORT IN PATIENT LB: Not Applicable Home Medications: Home Meds Aspirin [Ecotrin EC] 325 mg PO DAILY 05/02/14 [History] Calcium Carbonate/Vitamin D3 [Calcium 500-Vit D3 200 Tablet] 1 tab PO DAILY 05/02/14 [History] Cyclobenzaprine [Flexeril] 10 mg PO BEDTIME PRN 05/02/14 [History] Furosemide [Lasix] 40 mg PO DAILY 05/02/14 [History] Multivitamin [One Daily Multivitamin] 1 tab PO DAILY 05/02/14 [History] Omeprazole 20 mg PO DAILY PRN 05/02/14 [History] Morphine PF [Infumorph] 6.117 mg ITHECAL DAILY 05/03/14 [History] carvediloL [Coreg] 3.125 mg PO BIDMEALS 05/06/14 [History] Potassium Chloride [Klor-Con 10] 10 meq PO DAILY 07/08/17 [History] Magnesium Oxide [Magnesium] 400 mg PO DAILY 08/10/17 [History] Promethazine [Phenergan] 0.4 ml TOP Q6H PRN 08/10/17 [History] Amoxicillin 500 mg PO ASDIRECTED PRN 05/24/19 [History] Lisinopril 30 mg PO DAILY 05/24/19 [History] Referrals: Talon Heath, PROPERTY CONTROLLER [Nurse Practitioner] - (late this week) - Discharge Summary/Plan Comment DC Time >30 min.: Yes Discharge Summary/Plan Comment: Final diagnosis Ileus, colitis History summary Mrs. Clemens is a very pleasant 84-year-old female that was admitted into observation due to small bowel obstruction ileus versus colitis. She had presented EMS with 1-day of significant nausea and vomiting with mild abd distention. Her abdominal x-rays in the ED showed mild small bowel dilation with scattered air-fluid levels in the small and large bowel. She was not septic her lactic acid was normal, a urine creatinine liver functions were normal. Hospital course Patient was kept nothing by mouth and started on normal saline isotonic at 120 mL per hour. She eventually felt better however she was initially had some abdominal distention however no nausea or vomiting and started having multiple bowel movements. She remained afebrile, her I lites were monitored and were normal. She never had chest pain or shortness of breath. Her diet was slightly and slowly advanced and she started tolerating a soft diet upon discharge well. Medication changes/adjustments upon discharge No changes, continue home meds Disposition/follow-up Patient will be discharged from [facility], much improved, stay well- hydrated, she does report any nausea vomiting or abdominal distention or no bowel movements. She will be followed up [facility] - General Info Functional Status: Reports: Pain Controlled, Tolerating Diet - Review of Systems General: Denies: Fever, Weakness Pulmonary: Reports: No Symptoms Cardiovascular: Reports: No Symptoms Gastrointestinal: Reports: Flatus, Other (Multiple bowel movements, abdominal soft nondistended). Denies: Abdominal Pain, Constipation, Decreased Appetite, Diarrhea, Nausea, Vomiting 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: Reports: No Symptoms Musculoskeletal: Reports: No Symptoms Psychiatric: Reports: No Symptoms - Patient Data Vitals - Most Recent: Last Vital Signs Temp 98.2 F 12/16/20 10:42 Pulse 61 12/16/20 10:45 Resp 18 12/16/20 10:42 BP 138/55 L 12/16/20 10:45 Pulse Ox 91 L 12/16/20 10:42 Weight - Most Recent: 173 lb 4.8 oz Med Orders - Current: Current Medications Discontinued Medications Acetaminophen (Tylenol) 650 mg PO Q4H PRN PRN Reason: Pain Last Admin: 12/16/20 01:17 Dose: 650 mg Documented by: Aspirin (Ecotrin) 325 mg PO DAILY [facility] Last Admin: 12/16/20 10:47 Dose: 325 mg Documented by: Carvedilol (Coreg) 3.125 mg PO BIDMEALS [facility] Last Admin: 12/16/20 10:45 Dose: 3.125 mg Documented by: Furosemide (Lasix) 40 mg PO DAILY [facility] Last Admin: 12/16/20 10:44 Dose: 40 mg Documented by: Sodium Chloride (Normal Saline) 1,000 mls @ 125 mls/hr IV ASDIRECTED [facility] Last Admin: 12/15/20 08:48 Dose: 125 mls/hr Documented by: Sodium Chloride (Normal Saline) 1,000 mls @ 70 mls/hr IV ASDIRECTED [facility] Last Admin: 12/15/20 22:32 Dose: 70 mls/hr Documented by: Lidocaine HCl (Xylocaine 2% Viscous) 15 ml PO ONETIME ONE Stop: 12/14/20 22:39 Last Admin: 12/14/20 23:10 Dose: 5 ml Documented by: Non-Formulary Medication (Promethazine [Phenergan]) 0.4 ml TOP Q6H PRN PRN Reason: Nausea Ondansetron HCl (Zofran) 8 mg IVPUSH ONETIME ONE Stop: 12/15/20 00:17 Last Admin: 12/15/20 00:20 Dose: Not Given Documented by: Ondansetron HCl (Zofran) 4 mg IVPUSH Q6H PRN PRN Reason: Nausea/Vomiting Last Admin: 12/15/20 19:46 Dose: 4 mg Documented by: Lisinopril 30mg Tab (- Ptom) 1 each PO DAILY [facility] Last Admin: 12/16/20 10:45 Dose: 1 each Documented by: Potassium Chloride (Er 10meq - Ptom) 1 each PO DAILY [facility] Last Admin: 12/16/20 10:44 Dose: 1 each Documented by: Sodium Chloride (Saline Flush) 10 ml FLUSH Q8HR PRN PRN Reason: keep vein open - Exam Lungs: Reports: Clear to Auscultation, Normal Respiratory Effort Cardiovascular: Reports: Regular Rate, Regular Rhythm GI/Abdominal Exam: Normal Bowel Sounds, Soft, No Distention, No Mass. No: Distended, Guarding, Rigid, Tender, Abnormal Bowel Sounds Skin: Reports: Warm, Dry, Intact Neurological: Reports: Normal Speech, Normal Tone Psy/Mental Status: Reports: Alert, Normal Affect, Normal Mood
== END 2020-12-16 14:05 | disposition home or self-care (01) ==
LOC: KA.ED 21:34 → KA.MS 23:32 → UNDOADMOB 23:58
PROVIDERS: ADMIT Family Medicine; ATTEND Family Medicine
DX: R11.2 Nausea with vomiting, unspecified (principal); K52.9 Noninfective gastroenteritis and colitis, unspecified; K56.609 Unspecified intestinal obstruction, unspecified as to partial versus complete obstruction; I50.9 Heart failure, unspecified; Z95.0 Presence of cardiac pacemaker; Z79.899 Other long term (current) drug therapy; Z79.82 Long term (current) use of aspirin; Z88.8 Allergy status to other drugs, medicaments and biological substances; I11.0 Hypertensive heart disease with heart failure; Z20.822 Contact with and (suspected) exposure to COVID-19
CPT/HCPCS: 36415; 74022; 80053; 81001; 82150; 82550; 82553; 83605; 83690; 84484; 85025; 93005; 96374; 99284; 99285-25; A9270-GY; G0378; J2405; J7030; U0002

== ENCOUNTER 2021-01-04 08:54 | Emergency (ER) | payer MEDICARE, BC ==
--- NOTE | 2021-01-04 09:08 | EDM.PDOC ---
ED HPI GENERAL MEDICAL PROBLEM - General Chief Complaint: 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 Problem Stated Complaint: ? BLADDE INFECTION Time Seen by Provider: 01/04/21 09:07 Source of Information: Reports: Patient - History of Present Illness INITIAL COMMENTS - FREE TEXT/NARRATIVE: [place], 85-year-old female, presents with dysuria and frequency. States this started last night and it has persisted throughout the night with frequency. She states is very similar in the nausea component to the last time she was ill, hospitalized for colitis/ileus and that she was not going to wait until she became compromised, thus presenting to the emergency department. She had tried to continue drinking but stated that was starting to become nauseating as she was continually sipping on water. That factor promoted her to seek evaluation sooner than later as the last time she had tried to fight this off on her own. She used her patch and feels no nausea, denying any abdominal discomfort or significant changes. States bowel movement has not occurred yet today but does not have any abdominal symptoms. Onset Date: 01/03/21 Duration: Hour(s): Location: Reports: Abdomen, Pelvis Quality: Reports: Burning Severity: Moderate Improves with: Reports: None Worsens with: Reports: Movement Associated Symptoms: Reports: No Other Symptoms - Related Data Allergies Allergy/AdvReac Type Severity Reaction Status Date / Time Anesthetics - Lucy Type- Allergy Edema Verified 01/04/21 09:48 Parabens [Anesthetics - Lucy Type] hydromorphone HCl Allergy Lightheaded Verified 01/04/21 09:48 [From Dilaudid] ness meperidine [From Demerol] Allergy Other Verified 01/04/21 09:48 prochlorperazine edisylate Allergy Bronchospas Verified 01/04/21 09:48 [From Compazine] ms prochlorperazine maleate Allergy Bronchospas Verified 01/04/21 09:48 [From Compazine] ms propoxyphene HCl Allergy Nausea and Verified 01/04/21 09:48 [From Darvon] Vomiting novacaine Allergy Severe Swollen Uncoded 01/04/21 09:48 Tongue Home Meds: Home Meds Aspirin [Ecotrin EC] 325 mg PO DAILY 05/02/14 [History] Calcium Carbonate/Vitamin D3 [Calcium 500-Vit D3 200 Tablet] 1 tab PO DAILY 05/02/14 [History] Cyclobenzaprine [Flexeril] 10 mg PO BEDTIME PRN 05/02/14 [History] Furosemide [Lasix] 40 mg PO DAILY 05/02/14 [History] Multivitamin [One Daily Multivitamin] 1 tab PO DAILY 05/02/14 [History] Omeprazole 20 mg PO DAILY PRN 05/02/14 [History] Morphine PF [Infumorph] 6.117 mg ITHECAL DAILY 05/03/14 [History] carvediloL [Coreg] 3.125 mg PO BIDMEALS 05/06/14 [History] Potassium Chloride [Klor-Con 10] 10 meq PO DAILY 07/08/17 [History] Magnesium Oxide [Magnesium] 400 mg PO BEDTIME 08/10/17 [History] Promethazine [Phenergan] 0.4 ml TOP Q6H PRN 08/10/17 [History] Amoxicillin 500 mg PO ASDIRECTED PRN 05/24/19 [History] Lisinopril 30 mg PO DAILY 05/24/19 [History] Sulfamethoxazole/Trimethoprim [Bactrim 400-80 MG] 1 each PO BID 6 Days #12 tablet 01/04/21 [Rx] Past Medical History HEENT History: Reports: Cataract, Impaired Vision Cardiovascular History: Reports: Arrhythmia, Heart Failure, Hypertension, Pacemaker Respiratory History: Reports: Other (See Below) Other Respiratory History: nodule in chest Gastrointestinal History: Reports: Chronic Constipation, GERD 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 History: Reports: None [employer] History: Reports: Musculoskeletal History: Reports: Arthritis, Back Pain, Chronic, Osteoarthritis, Osteoporosis Neurological History: Reports: Migraines Psychiatric History: Reports: Anxiety Hematologic History: Reports: Blood Transfusion(s) - Infectious Disease History Infectious Disease History: Reports: Chicken Pox, Measles, Mumps, Pertussis (Whooping Cough), Shingles - Past Surgical History Head Surgeries/Procedures: Reports: None HEENT Surgical History: Reports: None Cardiovascular Surgical History: Reports: Other (See Below) Other Cardiovascular Surgeries/Procedures: PACEMAKER Respiratory Surgical History: Reports: Lung Biopsies GI Surgical History: Reports: Appendectomy, Cholecystectomy, Colonoscopy Female Surgical History: Reports: Hysterectomy Neurological Surgical History: Reports: Other (See Below) Other Neurological Surgeries/Procedures: back surgery Musculoskeletal Surgical History: Reports: Hip Replacement, Knee Replacement, Shoulder Replacement Other Musculoskeletal Surgeries/Procedures:: REVERSE SHOULDERS, BACK SURGERIES x3 Social & Family History - Family History Family Medical History: No Pertinent Family History Cardiac: Reports: CAD, Heart Valve Replacement, [place] - Caffeine Use Caffeine Use: Reports: Coffee ED ROS GENERAL - Review of Systems Review Of Systems: Comprehensive ROS is negative, except as noted in HPI. ED EXAM, GENERAL - Physical Exam Exam: See Below Free Text/Narrative:: Alert, oriented, cheerfully visiting with me as I entered the room. HEENT is negative to discharge or deformity with pink oral membranes. Her thorax is clear with no concern. Cardiac is regular. Abdomen is soft she denies any nausea, discomfort to palpation, or concerns. She has a pressure sensation over the urinary bladder with noted frequency and burning with each urination. No flank pain is appreciated. She has trace edema to the lower extremities. Course - Vital Signs Last Recorded V/S: Last Vital Signs Temp 98.8 F 01/04/21 09:01 Pulse 109 H 01/04/21 09:01 Resp 18 01/04/21 09:01 BP 132/80 01/04/21 09:01 Pulse Ox 91 L 01/04/21 09:01 - Orders/Labs/Meds Orders: Active Orders 24 hr Category Date Time Status CULTURE URINE [RM] Stat Lab 01/04/21 09:15 Received Labs: Laboratory Tests 01/04/21 Range/Units 09:15 Specimen Type Urincc Urine Color Yellow (YELLOW) Urine Appearance Turbid H (CLEAR) Urine pH 7.5 (5.0-9.0) Ur Specific [place] 1.025 (1.005-1.030) Urine Protein >=300 H (NEGATIVE) mg/dL Urine Glucose (UA) Negative (NEGATIVE) mg/dL Urine Ketones Negative (NEGATIVE) mg/dL Urine Occult Blood Large H (NEGATIVE) Urine Nitrite Positive H (NEGATIVE) Urine Bilirubin Negative (NEGATIVE) Urine Urobilinogen 0.2 (0.2-1.0) E.U./dL Ur Leukocyte Esterase Moderate H (NEGATIVE) Urine RBC 5-10 H (0-5) /HPF Urine WBC Packed (0-5) /HPF Ur Epithelial Cells Few /LPF Urine Bacteria Moderate H (NONE TO FEW) /HPF Meds: Medications Discontinued Medications Generic Name Dose Route Start Last Admin Trade Name Freq PRN Reason Stop Dose Admin Trimethoprim/Sulfamethoxazole 3 tab 01/04/21 09:50 01/04/21 10:15 Septra Ds PO 01/04/21 09:51 Not Given ONETIME ONE Departure - Departure Time of Disposition: 09:56 Disposition: Home, Self-Care 01 Condition: Good Clinical Impression: Dysuria, UTI, Urinary tract infectious disease, Urine frequency - Discharge Information *PRESCRIPTION DRUG MONITORING PROGRAM REVIEWED*: Not Applicable *COPY OF PRESCRIPTION DRUG MONITORING REPORT IN PATIENT LB: Not Applicable Prescriptions: Sulfamethoxazole/Trimethoprim [Bactrim 400-80 MG] 1 each PO BID 6 Days #12 tablet Referrals: Talon Heath, [employer] LO[employer] UNDERWRITER [Primary Care Provider] - Forms: ED Department Discharge Additional Instructions: You have a urinary tract infection. You have been given enough medicine for today, 2 doses, and 1 dose tomorrow morning. You will then need to go to the pharmacy and crop picker the remainder of the treatment for the upcoming week. Make sure you continue all your other medications as directed. Make sure to increase your fluid intake to flush all of this through your system. You need to be seen in the clinic at the conclusion of your medication for reassessment of your electrolyte panel. You need to be re-seen either at the emergency department or in the clinic if you do not feel it is improving as you would expect, or if you are getting worse. Sepsis Event Note (ED) - Focused Exam Vital Signs: Vital Signs Temp Pulse Resp BP Pulse Ox 01/04/21 09:01 98.8 F 109 H 18 132/80 91 L - Problem List & Annotations (1) Dysuria SNOMED Code(s): 56260862 Code(s): R30.0 - DYSURIA Status: Acute (2) Urine frequency SNOMED Code(s): 118469958 Code(s): R35.0 - FREQUENCY OF MICTURITION Status: Acute - My Orders Last 24 Hours: My Active Orders 01/04/21 09:15 CULTURE URINE [RM] Stat - Assessment/Plan Last 24 Hours: My Active Orders 01/04/21 09:15 CULTURE URINE [RM] Stat Plan: You have a urinary tract infection. You have been given enough medicine for today, 2 doses, and 1 dose tomorrow morning. You will then need to go to the pharmacy and crop picker the remainder of the treatment for the upcoming week. Make sure you continue all your other medications as directed. Make sure to increase your fluid intake to flush all of this through your system. You need to be seen in the clinic at the conclusion of your medication for reassessment of your electrolyte panel. You need to be re-seen either at the emergency department or in the clinic if you do not feel it is improving as you would expect, or if you are getting worse.
[2021-01-04 09:09] VITALS: BP 132/80; PULSE 109
[2021-01-04] MEDS: Sulfamethoxazole/Trimethoprim 800-160 MG Tab PO ONE (10:15)
== END 2021-01-04 10:10 | disposition home or self-care (01) ==
LOC: KA.ED 08:54
DX: N39.0 Urinary tract infection, site not specified (principal); I11.0 Hypertensive heart disease with heart failure; I50.9 Heart failure, unspecified; K21.9 Gastro-esophageal reflux disease without esophagitis; M19.90 Unspecified osteoarthritis, unspecified site; Z88.4 Allergy status to anesthetic agent; Z88.5 Allergy status to narcotic agent; Z88.8 Allergy status to other drugs, medicaments and biological substances; Z79.82 Long term (current) use of aspirin; Z79.899 Other long term (current) drug therapy
CPT/HCPCS: 81001; 87086; 87088; 87186; 99283; 99284; A9270-GY

== ENCOUNTER 2021-03-12 19:34 | Emergency (ER) | payer MEDICARE, BC ==
--- NOTE | 2021-03-12 19:48 | EDM.PDOC ---
ED HPI GENERAL MEDICAL PROBLEM - General Chief Complaint: Gastrointestinal Problem Stated Complaint: N/V Time Seen by Provider: 03/12/21 19:36 Source of Information: Reports: Patient, Family History Limitations: Reports: No Limitations - History of Present Illness INITIAL COMMENTS - FREE TEXT/NARRATIVE: Marietta, 85-year-old female, presents by private vehicle accompanied by her daughter with nausea and emesis. She states is come on suddenly and with her past history feels she needed to come in right away to get it evaluated so it does not worsen. She states similar feeling but not as severe as when she was hospitalized in November for small bowel obstruction. She denies any intake or activity today that would precipitated this, stating she had a normal bowel movement this morning with no difficulty and normal consistency. The only variance was she had some [place] today and other than that no change in appetite nor diet. She denies any fever chills or concerning factors feeling that it was important to get this checked before it progressed and led to hospitalization. Her daughter states that she was may be slightly nervous in its aspect as typically her Phenergan controls her nausea as it develops, but tonight it did not. Onset: Today, Sudden Onset Date: 03/12/21 Onset Time: 18:30 Duration: Minutes: Location: Reports: Abdomen Quality: Reports: Pressure, Sharp Severity: Moderate Improves with: Reports: None Worsens with: Reports: Eating, Movement Associated Symptoms: Reports: No Other Symptoms Treatments LOAN ADMINISTRATOR: Reports: Other Medication(s) - Related Data Allergies Allergy/AdvReac Type Severity Reaction Status Date / Time Anesthetics - Lucy Type- Allergy Edema Verified 03/12/21 20:36 Parabens [Anesthetics - Lucy Type] hydromorphone HCl Allergy Lightheaded Verified 03/12/21 20:36 [From Dilaudid] ness meperidine [From Demerol] Allergy Other Verified 03/12/21 20:36 prochlorperazine edisylate Allergy Bronchospas Verified 03/12/21 20:36 [From Compazine] ms prochlorperazine maleate Allergy Bronchospas Verified 03/12/21 20:36 [From Compazine] ms propoxyphene HCl Allergy Nausea and Verified 03/12/21 20:36 [From Darvon] Vomiting novacaine Allergy Severe Swollen Uncoded 03/12/21 20:36 Tongue Home Meds: Home Meds Aspirin [Ecotrin EC] 325 mg PO DAILY 05/02/14 [History] Calcium Carbonate/Vitamin D3 [Calcium 500-Vit D3 200 Tablet] 1 tab PO DAILY 05/02/14 [History] Cyclobenzaprine [Flexeril] 10 mg PO BEDTIME PRN 05/02/14 [History] Furosemide [Lasix] 40 mg PO DAILY 05/02/14 [History] Multivitamin [One Daily Multivitamin] 1 tab PO DAILY 05/02/14 [History] Omeprazole 20 mg PO DAILY PRN 05/02/14 [History] Morphine PF [Infumorph] 6.117 mg ITHECAL DAILY 05/03/14 [History] carvediloL [Coreg] 3.125 mg PO BIDMEALS 05/06/14 [History] Potassium Chloride [Klor-Con 10] 10 meq PO DAILY 07/08/17 [History] Magnesium Oxide [Magnesium] 400 mg PO BEDTIME 08/10/17 [History] Promethazine [Phenergan] 0.4 ml TOP Q6H PRN 08/10/17 [History] Amoxicillin 500 mg PO ASDIRECTED PRN 05/24/19 [History] Lisinopril 30 mg PO DAILY 05/24/19 [History] Diclofenac Sodium [Voltaren 1% Gel] 2 gm TOP BID 03/12/21 [History] LORazepam [Ativan] 0.25 mg PO BID 03/12/21 [History] Past Medical History HEENT History: Reports: Cataract, Impaired Vision Cardiovascular History: Reports: Arrhythmia, Heart Failure, Hypertension, Pacemaker Respiratory History: Reports: Other (See Below) Other Respiratory History: nodule in chest Gastrointestinal History: Reports: Bowel Obstruction, Chronic Constipation, GERD 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 History: Reports: None, Other (See Below) (uti) 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: Reports: Musculoskeletal History: Reports: Arthritis, Back Pain, Chronic, Osteoarthritis, Osteoporosis Neurological History: Reports: Migraines, Other (See Below) Other Neuro History: pain pump Psychiatric History: Reports: Anxiety Hematologic History: Reports: Blood Transfusion(s) - Infectious Disease History Infectious Disease History: Reports: Chicken Pox, Measles, Mumps, Pertussis (Whooping Cough), Shingles - Past Surgical History Head Surgeries/Procedures: Reports: None HEENT Surgical History: Reports: Cataract Surgery Cardiovascular Surgical History: Reports: Pacer Respiratory Surgical History: Reports: Lung Biopsies GI Surgical History: Reports: Appendectomy, Cholecystectomy, Colonoscopy Female Surgical History: Reports: Hysterectomy Neurological Surgical History: Reports: Other (See Below) Other Neurological Surgeries/Procedures: back surgery Musculoskeletal Surgical History: Reports: Hip Replacement, Knee Replacement, Shoulder Replacement Other Musculoskeletal Surgeries/Procedures:: REVERSE SHOULDERS, BACK SURGERIES x3 Social & Family History - Family History Family Medical History: No Pertinent Family History Cardiac: Reports: CAD, Heart Valve Replacement, AR - Tobacco Use Tobacco Use Within Last Twelve Months: No - Caffeine Use Caffeine Use: Reports: Coffee ED ROS GENERAL - Review of Systems Review Of Systems: Comprehensive ROS is negative, except as noted in HPI. Constitutional: Reports: No Symptoms HEENT: Reports: No Symptoms Respiratory: Reports: No Symptoms Cardiovascular: Reports: No Symptoms Endocrine: Reports: No Symptoms GI/Abdominal: Reports: Abdominal Pain : Reports: No Symptoms Musculoskeletal: Reports: Back Pain Skin: Reports: No Symptoms Neurological: Reports: No Symptoms Psychiatric: Reports: No Symptoms Hematologic/Lymphatic: Reports: No Symptoms ED EXAM, GENERAL - Physical Exam Exam: See Below Free Text/Narrative:: Alert, oriented, with moderate nauseous appearance distress. HEENT is negative discharge or deformity. Neck soft supple with no JVD nor lymphadenopathy. Thorax is scattered rhonchi with no wheezes nor crackles. Cardiac S1-S2 grade 1 systolic murmur. With no ectopic beats. Abdomen is rotund firm with mild pressure type tenderness in the mid abdominal region above the umbilicus with no radiation. Bowel sounds are present. She has minimal edema to the lower extremities moving with no discomfort. No flank pain is appreciated but any motion or positioning induces nausea with small amounts of emesis dark in color. She states she does not understand how her previous bowel obstruction occurred when she was having bowel movements nor that if that is what we are considering at this time secondary of the possible of normal bowel movement this morning. She denies any extraneous intake of fluid or food. #1 Interpretation EKG Date: 03/12/21 Time: 20:12 Rhythm: Other (Paced) Rate (Beats/Min): 83 [place]: Normal Comparison: Change From Previous EKG (rate variation paced) Course - Vital Signs Last Recorded V/S: Last Vital Signs Temp 97.4 F 03/12/21 19:37 Pulse 89 03/12/21 21:17 Resp 18 03/12/21 19:37 BP 149/78 H 03/12/21 21:17 Pulse Ox 88 L 03/12/21 21:17 - Orders/Labs/Meds Orders: Active Orders 24 hr Category Date Time Status EKG Documentation Completion [RC] ASDIRECTED Care 03/12/21 19:37 Active Peripheral IV Care [RC] . DIRECTED Care 03/12/21 19:37 Active Abdomen Pelvis wo Cont [CT] Stat Exams 03/12/21 20:38 Ordered Sodium Chloride 0.9% [Saline Flush] Med 03/12/21 19:37 Active 10 ml FLUSH Q8HR PRN Peripheral IV Insertion Adult [OM.PC] Routine Oth 03/12/21 19:37 Ordered EKG 12 Lead [EK] Urgent Ther 03/12/21 19:36 Ordered Medication Orders Sodium Chloride (Sodium Chloride 0.9% 10 Ml Syringe) 10 ml FLUSH Q8HR PRN PRN Reason: keep vein open Last Admin: 03/12/21 20:06 Dose: 10 ml Documented by: LUCIANO Labs: Laboratory Tests 03/12/21 03/12/21 Range/Units 19:49 19:49 WBC 6.37 (5.00-10.00) 10^3/uL RBC 4.55 (3.80-5.50) 10^6/uL Hgb 14.0 (12.0-16.0) g/dL Hct 41.3 (37.0-47.0) % MCV 90.8 (82.0-92.0) fL MCH 30.8 (27.0-31.0) pg MCHC 33.9 (32.0-36.0) g/dL RDW 13.0 (11.5-14.5) % Plt Count 152 (150-400) 10^3/uL MPV 11.7 H (7.4-10.4) fL Immature Gran % (Auto) 0.0 (0.0-5.0) % Neut % (Auto) 61.8 (50.0-70.0) % Lymph % (Auto) 25.1 (20.0-40.0) % Lamar % (Auto) 10.8 H (2.0-8.0) % Eos % (Auto) 2.0 (1.0-3.0) % Baso % (Auto) 0.3 (0.0-1.0) % Neut # (Auto) 3.93 (2.50-7.00) 10^3/uL Lymph # (Auto) 1.60 (1.00-4.00) 10^3/uL Lamar # (Auto) 0.69 (0.10-0.80) 10^3/uL Eos # (Auto) 0.13 (0.10-0.30) 10^3/uL Baso # (Auto) 0.02 (0.00-0.10) 10^3/uL Immature Gran # (Auto) 0.00 (0.00-0.50) 10^3/uL Sodium 144 (136-145) mmol/L Potassium 3.7 (3.5-5.1) mmol/L Chloride 105 (98-107) mmol/L Carbon Dioxide 28.4 (21.0-32.0) mmol/L Anion Gap 14.3 (5-15) mmol/L BUN 27 H (7-18) mg/dL Creatinine 1.07 (0.51-1.17) mg/dL Est Cr Clr Drug Dosing TNP Estimated GFR (MDRD) 49 mL/min Glucose 145 H (70-140) mg/dL Calcium 8.6 L (8.7-10.3) mg/dL Total Bilirubin 0.5 (0.2-1.0) mg/dL AST 21 (15-37) U/L ALT 34 (14-63) U/L Alkaline Phosphatase 83 (46-116) U/L Total Protein 7.4 (6.4-8.2) g/dL Albumin 3.71 (3.40-5.00) g/dL Amylase 63 (25-125) U/L Lipase 98 (73-393) U/L Meds: Medications Generic Name Dose Route Start Last Admin Trade Name Freq PRN Reason Stop Dose Admin Sodium Chloride 10 ml 03/12/21 19:37 03/12/21 20:06 Sodium Chloride 0.9% 10 Ml Syringe FLUSH 10 ml Q8HR PRN Administration keep vein open Discontinued Medications Generic Name Dose Route Start Last Admin Trade Name Freq PRN Reason Stop Dose Admin Diatrizoate Meglum/Diatrizoate Sod 30 ml 03/12/21 22:17 03/12/21 22:17 Diatrizoate Meglumine/Diatrizoate Sodium 37% 30 Ml Bottle PO 03/12/21 22:18 30 ml ONETIME ONE Administration Ondansetron HCl 8 mg 03/12/21 19:38 03/12/21 19:56 Ondansetron 4 Mg/2 Ml Sdv IVPUSH 03/12/21 19:39 8 mg ONETIME ONE Administration - Re-Assessments/Exams Free Text/Narrative Re-Assessment/Exam: 03/12/21 20:32 Ondanestron has resolved nausea at this time with no further attempted emesis, he is much more comfortable awaiting laboratory results. Pending creatinine, CT with oral contrast is planned secondary of her abdominal pressure discomfort and significant nausea vomiting 03/12/21 23:27 Free Text/Narrative Re-Assessment/Exam: 03/12/21 23:07 Pain-free visiting comfortably. At the time CT [place] 2243 there is a finding of questionable partial small bowel obstruction with focal dilated loops with contrast progressing beyond that point. They feel it could potentially represent a partial obstruction. Admission for observation was offered and declined, as no proof of obstruction, only suspicion was noted and no evidence of infection was found. As Pam has been through this before in November, with plain films confirming and the fact no major interventions occurred and all of her lab work being within reason tonight other than a mild elevation in her BUN which is chronic, both her and her daughter so feel that she will go home and remain n.p.o. this evening. Take her medications with water, have her medications in the morning and contact her provider Talon Heath at the clinic. In the event anything worsens or persists consideration for returning to the emergency department is acknowledged by both her and her daughter. 03/12/21 23:15 Declines admission and plans for discharge to home with her daughter to be present for the next week. Departure - Departure Time of Disposition: 23:13 Disposition: Home, Self-Care 01 Condition: Good Clinical Impression: Abdominal pressure, Small bowel obstruction Nausea & vomiting Qualifiers: Vomiting type: unspecified Vomiting Intractability: non-intractable Qualified Code(s): R11.2 - Nausea with vomiting, unspecified - Discharge Information *PRESCRIPTION DRUG MONITORING PROGRAM REVIEWED*: Not Applicable *COPY OF PRESCRIPTION DRUG MONITORING REPORT IN PATIENT LB: Not Applicable Instructions: Bowel Obstruction, [id number], Nausea, Adult, [id number] Referrals: Talon Heath, REDUCING MACHINE OPERATOR [Primary Care Provider] - Forms: ED Department Discharge Additional Instructions: With your laboratory findings being appreciated within normal limits and no confirmed obstruction, questionable obstruction with contrast going beyond the point of question, you will be discharged home. If for any reason you feel a change in agreeing to admission, please call the hospital, or return for admission. You may take your pills this evening with a sip of water to get them down. Nothing to eat or drink other than that for the remainder of the night. Upon awakening in the morning you may take your medications again with small amount of fluid to wash them down. You should wait at least 15 minutes to 30 minutes prior to having a soft consistency such as a putting or cream of wheat, 2 or 3 spoonfuls to see how that affects you. In the event abdominal pressure or discomfort should start consideration for contacting the clinic at that time or returning to the emergency department. If you are able to pass gas and feel no discomfort or distention the soft and/or liquid type diet until noon would be the most advanced eating I would consider that would be safely pursued. Soft to liquid diet throughout the day with no discomfort may then be advanced as tolerated. Please contact the clinic to discuss the situation with Talon so you can get an appointment for follow-up sometime next week. As we discussed in the past and you acknowledge now the pulmonary nodule that was found is already been worked up and requires no further testing. In the event any discomfort occurs this evening or prior to the clinic opening in the morning please consider returning to the emergency department. Sepsis Event Note (ED) - Focused Exam Vital Signs: Vital Signs Temp Pulse Resp BP Pulse Ox 03/12/21 21:17 89 149/78 H 88 L 03/12/21 21:00 85 147/72 H 95 03/12/21 20:45 84 147/73 H 95 03/12/21 20:33 87 142/73 H 94 L 03/12/21 20:16 86 152/72 H 94 L 03/12/21 20:00 87 138/69 95 03/12/21 19:45 91 156/83 H 92 L 03/12/21 19:37 97.4 F 92 18 173/83 H 92 L - Problem List & Annotations (1) Abdominal pressure SNOMED Code(s): 525902492 Code(s): R10.9 - UNSPECIFIED ABDOMINAL PAIN Status: Acute Priority: High Current Visit: Yes (2) Nausea alone SNOMED Code(s): 212714786 Code(s): R11.0 - NAUSEA Status: Acute Priority: High Current Visit: Yes (3) Nausea & vomiting SNOMED Code(s): 91936818 Code(s): R11.2 - NAUSEA WITH VOMITING, UNSPECIFIED Status: Acute Priority: High Current Visit: Yes Qualifiers: Vomiting type: unspecified Vomiting Intractability: non-intractable Qualified Code(s): R11.2 - Nausea with vomiting, unspecified (4) Enteritis SNOMED Code(s): 94985386 Code(s): K52.9 - NONINFECTIVE GASTROENTERITIS AND COLITIS, UNSPECIFIED Status: Acute Priority: High Current Visit: Yes - Problem List Review Problem List Initiated/Reviewed/Updated: Yes - My Orders Last 24 Hours: My Active Orders 03/12/21 19:36 EKG 12 Lead [EK] Urgent 03/12/21 19:37 EKG Documentation Completion [RC] ASDIRECTED Peripheral IV Care [RC] . DIRECTED Sodium Chloride 0.9% [Saline Flush] 10 ml FLUSH Q8HR PRN Peripheral IV Insertion Adult [OM.PC] Routine 03/12/21 20:38 Abdomen Pelvis wo Cont [CT] Stat - Assessment/Plan Last 24 Hours: My Active Orders 03/12/21 19:36 EKG 12 Lead [EK] Urgent 03/12/21 19:37 EKG Documentation Completion [RC] ASDIRECTED Peripheral IV Care [RC] . DIRECTED Sodium Chloride 0.9% [Saline Flush] 10 ml FLUSH Q8HR PRN Peripheral IV Insertion Adult [OM.PC] Routine 03/12/21 20:38 Abdomen Pelvis wo Cont [CT] Stat Plan: With your laboratory findings being appreciated within normal limits and no confirmed obstruction, questionable obstruction with contrast going beyond the point of question, you will be discharged home. If for any reason you feel a change in agreeing to admission, please call the hospital, or return for admission. You may take your pills this evening with a sip of water to get them down. Nothing to eat or drink other than that for the remainder of the night. Upon awakening in the morning you may take your medications again with small amount of fluid to wash them down. You should wait at least 15 minutes to 30 minutes prior to having a soft consistency such as a putting or cream of wheat, 2 or 3 spoonfuls to see how that affects you. In the event abdominal pressure or discomfort should start consideration for contacting the clinic at that time or returning to the emergency department. If you are able to pass gas and feel no discomfort or distention the soft and/or liquid type diet until noon would be the most advanced eating I would consider that would be safely pursued. Soft to liquid diet throughout the day with no discomfort may then be advanced as tolerated. Please contact the clinic to discuss the situation with Talon so you can get an appointment for follow-up sometime next week. As we discussed in the past and you acknowledge now the pulmonary nodule that was found is already been worked up and requires no further testing. In the event any discomfort occurs this evening or prior to the clinic opening in the morning please consider returning to the emergency department.
[2021-03-12] MEDS: Ondansetron 4 MG/2 ML SDV IVPUSH ONE (19:56)
[2021-03-12] MEDS: Sodium Chloride 0.9% 10 ML Syringe FLUSH PRN (20:06)
[2021-03-12 20:33] LABS: ANION GAP 14.3 mmol/L (5-15); CHLORIDE,CL 105 mmol/L (98-107); SODIUM,NA 144 mmol/L (136-145)
[2021-03-12] MEDS: Diatrizoate Meglumine/Diatrizoate Sodium 37% 30 ML Bottle PO ONE (22:17)
[2021-03-12 22:24] VITALS: BP 149/78; PULSE 89
--- NOTE | 2021-03-13 09:21 | CT ---
[id number] CT/CT Abdomen Pelvis WO IV EXAM: CT Abdomen Pelvis WO IV CLINICAL DATA: ABDOMEN PRESSURE, PAIN, NAUSEA, VOMITING, HX SBO COMPARISON STUDY: December 14, 2020. FINDINGS: Mild granulomatous change in the lung bases. Additionally there is a 7 x 12 x 12 mm solid noncalcified nodule in the left lower lobe. This extends slightly beyond the field of view of this examination. Liver, spleen, pancreas, adrenal glands, and kidneys are unremarkable. Cholecystectomy. Small bowel is normal in caliber throughout its length without transition point. No evidence of obstruction. No enteritis or colitis. No lymphadenopathy, free fluid, or pneumoperitoneum. Spinal stimulator generator in the subcutaneous soft tissues of the right lower quadrant. Leads from cardiac conduction device in the heart. Streak artifact from bilateral hip prostheses partially obscures structures in the pelvis, including the bilateral UVJs. Uterus is not visualized. Correlate for hysterectomy. Reversal of the normal lumbar lordosis. Spondylosis throughout the visualized segment of the spine. T9, L1, and L2 compression deformities. These are chronic in appearance. Bone mineralization is diffusely decreased. IMPRESSION: Overall, no acute findings or other significant abnormality in the abdomen or pelvis. 12 mm solid noncalcified slightly irregular left lower lobe pulmonary nodule at the edge of the [id number] of this examination. Noncontrast chest CT is recommended. Other findings are described above. Butch Pantoja MD 03/13/21 0924 Thank you for allowing us to participate in the care of your patient.
== END 2021-03-12 23:28 | disposition home or self-care (01) ==
LOC: KA.ED 19:34
DX: K56.609 Unspecified intestinal obstruction, unspecified as to partial versus complete obstruction (principal); I10 Essential (primary) hypertension; Z95.0 Presence of cardiac pacemaker; K21.9 Gastro-esophageal reflux disease without esophagitis; Z88.4 Allergy status to anesthetic agent; Z88.5 Allergy status to narcotic agent; Z88.8 Allergy status to other drugs, medicaments and biological substances; Z79.82 Long term (current) use of aspirin
CPT/HCPCS: 74176; 80053; 82150; 83690; 85025; 93005; 96374; 99284; 99284-25; J2405; Q9963

== ENCOUNTER 2021-04-04 20:15 | Emergency (ER) | payer MEDICARE, BC ==
--- NOTE | 2021-04-04 20:33 | EDM.PDOC ---
ED HPI GENERAL MEDICAL PROBLEM - General Chief Complaint: Cardiovascular Problem Stated Complaint: Left arm pain Time Seen by Provider: 04/04/21 20:33 Source of Information: Reports: Patient History Limitations: Reports: No Limitations - History of Present Illness INITIAL COMMENTS - FREE TEXT/NARRATIVE: Pam, 85-year-old female, experienced hypertensive episode at home that led to some chest pressure arm pressure pain. She presented by private vehicle and stated she had already noted some improvement with no chest pain or arm pain at this time. She was mildly hypertensive on arriving. She denies any contributing factors other than she had extra bowel movements late this afternoon which she does not have a reason for, stating that she had normal bowel movement this morning. She has had no excessive pain discomfort, denies fever chills and other contributing factors. Onset: Today, Sudden Onset Date: 04/04/21 Onset Time: 18:00 Duration: Hour(s):, Colic Location: Reports: Chest - Related Data Allergies Allergy/AdvReac Type Severity Reaction Status Date / Time Anesthetics - Lucy Type- Allergy Edema Verified 04/04/21 20:42 Parabens [Anesthetics - Lucy Type] hydromorphone HCl Allergy Lightheaded Verified 04/04/21 20:42 [From Dilaudid] ness meperidine [From Demerol] Allergy Other Verified 04/04/21 20:42 prochlorperazine edisylate Allergy Bronchospas Verified 04/04/21 20:42 [From Compazine] ms prochlorperazine maleate Allergy Bronchospas Verified 04/04/21 20:42 [From Compazine] ms propoxyphene HCl Allergy Nausea and Verified 04/04/21 20:42 [From Darvon] Vomiting novacaine Allergy Severe Swollen Uncoded 03/12/21 20:36 Tongue Home Meds: Home Meds Aspirin [Ecotrin EC] 325 mg PO DAILY 05/02/14 [History] Calcium Carbonate/Vitamin D3 [Calcium 500-Vit D3 200 Tablet] 1 tab PO DAILY 05/02/14 [History] Cyclobenzaprine [Flexeril] 10 mg PO BEDTIME PRN 05/02/14 [History] Furosemide [Lasix] 40 mg PO DAILY 05/02/14 [History] Multivitamin [One Daily Multivitamin] 1 tab PO DAILY 05/02/14 [History] Omeprazole 20 mg PO DAILY PRN 05/02/14 [History] Morphine PF [Infumorph] 6.117 mg ITHECAL DAILY 05/03/14 [History] carvediloL [Coreg] 3.125 mg PO BIDMEALS 05/06/14 [History] Potassium Chloride [Klor-Con 10] 10 meq PO DAILY 07/08/17 [History] Magnesium Oxide [Magnesium] 400 mg PO BEDTIME 08/10/17 [History] Promethazine [Phenergan] 0.4 ml TOP Q6H PRN 08/10/17 [History] Lisinopril 30 mg PO DAILY 05/24/19 [History] Diclofenac Sodium [Voltaren 1% Gel] 2 gm TOP BID 03/12/21 [History] LORazepam [Ativan] 0.25 mg PO BID 03/12/21 [History] Past Medical History HEENT History: Reports: Cataract, Impaired Vision Other HEENT History: wears glasses Cardiovascular History: Reports: Arrhythmia, Heart Failure, Hypertension, Pacemaker Respiratory History: Reports: Other (See Below) Other Respiratory History: nodule in chest Gastrointestinal History: Reports: Bowel Obstruction, Chronic Constipation, GERD 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 History: Reports: None, Other (See Below) 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: Reports: Musculoskeletal History: Reports: Arthritis, Back Pain, Chronic, Osteoarthritis, Osteoporosis Neurological History: Reports: Migraines, Other (See Below) Other Neuro History: pain pump Psychiatric History: Reports: Anxiety Hematologic History: Reports: Blood Transfusion(s) - Infectious Disease History Infectious Disease History: Reports: Chicken Pox, Measles, Mumps, Pertussis (Whooping Cough), Shingles - Past Surgical History Head Surgeries/Procedures: Reports: None HEENT Surgical History: Reports: Cataract Surgery Cardiovascular Surgical History: Reports: Pacer Other Cardiovascular Surgeries/Procedures: PACEMAKER Respiratory Surgical History: Reports: Lung Biopsies GI Surgical History: Reports: Appendectomy, Cholecystectomy, Colonoscopy Female Surgical History: Reports: Hysterectomy Neurological Surgical History: Reports: Other (See Below) Other Neurological Surgeries/Procedures: back surgery Musculoskeletal Surgical History: Reports: Hip Replacement, Knee Replacement, Shoulder Replacement Other Musculoskeletal Surgeries/Procedures:: REVERSE SHOULDERS, BACK SURGERIES x3 Social & Family History - Family History Family Medical History: No Pertinent Family History Cardiac: Reports: CAD, Heart Valve Replacement, [place] - Caffeine Use Caffeine Use: Reports: Coffee ED ROS GENERAL - Review of Systems Review Of Systems: Comprehensive ROS is negative, except as noted in HPI. ED EXAM, GENERAL - Physical Exam Exam: See Below Free Text/Narrative:: Alert, oriented, cheerful in no distress. HEENT is negative discharge or deformity with pink moist mucous membranes. Neck soft supple no lymphadenopathy no rigidity noted. Thorax is clear with no wheezes nor crackles. Cardiac is regular with no ectopic beats. Abdomen is soft bowel sounds are present no tenderness is noted. There is +1 edema to lower extremities she moves about with no difficulty and presented per pedis from wheelchair. #1 Interpretation EKG Date: 04/04/21 Time: 20:37 Rate (Beats/Min): 76 (PACED) Comparison: No Change Course - Orders/Labs/Meds Orders: Active Orders 24 hr Category Date Time Status EKG Documentation Completion [RC] ASDIRECTED Care 04/04/21 20:38 Active Chest 1V Frontal [CR] Stat Exams 04/04/21 20:39 Ordered EKG 12 Lead [EK] Urgent Ther 04/04/21 20:38 Ordered Labs: Laboratory Tests 04/04/21 04/04/21 Range/Units 20:50 20:50 WBC 4.38 L (5.00-10.00) 10^3/uL RBC 4.41 (3.80-5.50) 10^6/uL Hgb 13.6 (12.0-16.0) g/dL Hct 40.9 (37.0-47.0) % MCV 92.7 H (82.0-92.0) fL MCH 30.8 (27.0-31.0) pg MCHC 33.3 (32.0-36.0) g/dL RDW 12.7 (11.5-14.5) % Plt Count 147 L (150-400) 10^3/uL MPV 11.4 H (7.4-10.4) fL Immature Gran % (Auto) 0.0 (0.0-5.0) % Neut % (Auto) 55.2 (50.0-70.0) % Lymph % (Auto) 30.1 (20.0-40.0) % [place] % (Auto) 12.1 H (2.0-8.0) % Eos % (Auto) 2.1 (1.0-3.0) % Baso % (Auto) 0.5 (0.0-1.0) % Neut # (Auto) 2.42 L (2.50-7.00) 10^3/uL Lymph # (Auto) 1.32 (1.00-4.00) 10^3/uL [place] # (Auto) 0.53 (0.10-0.80) 10^3/uL Eos # (Auto) 0.09 L (0.10-0.30) 10^3/uL Baso # (Auto) 0.02 (0.00-0.10) 10^3/uL Immature Gran # (Auto) 0.00 (0.00-0.50) 10^3/uL Sodium 142 (136-145) mmol/L Potassium 4.7 (3.5-5.1) mmol/L Chloride 103 (98-107) mmol/L Carbon Dioxide 33.1 H (21.0-32.0) mmol/L Anion Gap 10.6 (5-15) mmol/L BUN 23 H (7-18) mg/dL Creatinine 0.98 (0.51-1.17) mg/dL Est Cr Clr Drug Dosing TNP Estimated GFR (MDRD) 54 mL/min Glucose 135 (70-140) mg/dL Calcium 9.2 (8.7-10.3) mg/dL Total Bilirubin 0.4 (0.2-1.0) mg/dL AST 21 (15-37) U/L ALT 31 (14-63) U/L Alkaline Phosphatase 70 (46-116) U/L Troponin I High Sens 16.200 (0-51.000) pg/mL Total Protein 7.1 (6.4-8.2) g/dL Albumin 3.56 (3.40-5.00) g/dL Departure - Departure Time of Disposition: 22:05 Disposition: Home, Self-Care 01 Condition: Good Clinical Impression: Hypertension Qualifiers: Hypertension type: essential hypertension Qualified Code(s): I10 - Essential (primary) hypertension - Discharge Information *PRESCRIPTION DRUG MONITORING PROGRAM REVIEWED*: Not Applicable *COPY OF PRESCRIPTION DRUG MONITORING REPORT IN PATIENT LB: Not Applicable Instructions: Managing Your Hypertension, Hypertension, Adult Referrals: [facility] [employer] [Nurse Practitioner] - Forms: ED Department Discharge Additional Instructions: Your blood pressure has come back down nicely to your baseline without any intervention. Your lab work is all in good standings other than you need to drink more water, as usual. Continue all your medications as directed. Contact [facility] for a follow-up appointment as needed, especially if you see your blood pressure starting to trend up when you are at home. Call or return to the emergency department over the weekend or contact your clinic on Tuesday. Increase your fluids slightly. - Problem List & Annotations (1) Chest pain SNOMED Code(s): 97209793 Code(s): R07.9 - CHEST PAIN, UNSPECIFIED Status: Resolved Priority: Me dium Qualifiers: Chest pain type: unspecified Qualified Code(s): R07.9 - Chest pain, unspecified (2) Hypertension SNOMED Code(s): 47553791 Code(s): I10 - ESSENTIAL (PRIMARY) HYPERTENSION Status: Acute Priority: Medium Qualifiers: Hypertension type: essential hypertension Qualified Code(s): I10 - Essential (primary) hypertension - Problem List Review Problem List Initiated/Reviewed/Updated: Yes - My Orders Last 24 Hours: My Active Orders 04/04/21 20:38 EKG Documentation Completion [RC] ASDIRECTED EKG 12 Lead [EK] Urgent 04/04/21 20:39 Chest 1V Frontal [CR] Stat - Assessment/Plan Last 24 Hours: My Active Orders 04/04/21 20:38 EKG Documentation Completion [RC] ASDIRECTED EKG 12 Lead [EK] Urgent 04/04/21 20:39 Chest 1V Frontal [CR] Stat Plan: Your blood pressure has come back down nicely to your baseline without any intervention. Your lab work is all in good standings other than you need to drink more water, as usual. Continue all your medications as directed. Contact [facility] for a follow-up appointment as needed, especially if you see your blood pressure starting to trend up when you are at home. Call or return to the emergency department over the weekend or contact your clinic on Tuesday. Increase your fluids slightly.
[2021-04-04 21:26] LABS: ANION GAP 10.6 mmol/L (5-15); CHLORIDE,CL 103 mmol/L (98-107); SODIUM,NA 142 mmol/L (136-145)
[2021-04-04 23:39] VITALS: BP 135/57; PULSE 80
--- NOTE | 2021-04-05 09:49 | CR ---
[id number] RAD/RAD Chest PA or AP 1V EXAM: RAD Chest PA or AP 1V INDICATION: CHEST PAIN/ARM COMPARISON: December 14, 2020 DISCUSSION: Left chest wall cardiac conduction device. Cardiomediastinal silhouette is normal in size and contour. No infiltrate, effusion, pneumothorax, or edema. Pulmonary hyperinflation. Post surgical changes following total bilateral shoulder arthroplasties. IMPRESSION: No acute cardiopulmonary abnormality. Hima Abdalla DO 04/05/21 0948 Thank you for allowing us to participate in the care of your patient.
== END 2021-04-04 22:35 | disposition home or self-care (01) ==
LOC: KA.ED 20:15
DX: I11.0 Hypertensive heart disease with heart failure (principal); I50.9 Heart failure, unspecified; K21.9 Gastro-esophageal reflux disease without esophagitis; M19.90 Unspecified osteoarthritis, unspecified site; Z79.82 Long term (current) use of aspirin; Z88.4 Allergy status to anesthetic agent; Z88.5 Allergy status to narcotic agent; Z88.8 Allergy status to other drugs, medicaments and biological substances; Z79.899 Other long term (current) drug therapy
CPT/HCPCS: 36415; 71045; 80053; 84484; 85025; 93005; 99284; 99285-25

== ENCOUNTER 2021-11-30 20:25 | Emergency (ER) | payer MEDICARE, BC ==
[2021-11-30] MEDS ORDERED: Sodium Chloride 0.9% 10 ML Syringe FLUSH PRN (21:09)
[2021-11-30] MEDS ORDERED: Sodium Chloride 0.9% 1,000 ML IV ONE (21:10)
[2021-11-30] MEDS ORDERED: Ondansetron 4 MG/2 ML SDV IVPUSH ONE (21:21)
[2021-11-30 21:38] LABS: ANION GAP 11.7 mmol/L (5-15)
[2021-11-30] MEDS ORDERED: Ondansetron 4 MG Tab.DIS PO ONE (22:08)
[2021-12-01 06:01] VITALS: BP 102/52; PULSE 72
== END 2021-11-30 22:41 | disposition home or self-care (01) ==
LOC: KA.ED 20:25
DX: K52.9 Noninfective gastroenteritis and colitis, unspecified (principal); R11.2 Nausea with vomiting, unspecified; I11.0 Hypertensive heart disease with heart failure; I50.9 Heart failure, unspecified; K21.9 Gastro-esophageal reflux disease without esophagitis; M19.90 Unspecified osteoarthritis, unspecified site; Z88.4 Allergy status to anesthetic agent; Z88.5 Allergy status to narcotic agent; Z79.82 Long term (current) use of aspirin; Z79.899 Other long term (current) drug therapy; Z20.822 Contact with and (suspected) exposure to COVID-19
CPT/HCPCS: 36415; 71045; 80053; 81001; 83605; 83690; 85025; 87086; 93005; 96374; 99285-25; A9270-GY; J2405; U0002

== ENCOUNTER 2022-02-03 18:00 | Emergency (ER) | payer MEDICARE, BC ==
[2022-02-03 19:09] LABS: ANION GAP 9.6 mmol/L (5-15)
[2022-02-03] MEDS: Ondansetron 4 MG/2 ML SDV IVPUSH ONE (19:53)
[2022-02-03] MEDS: Oxymetazoline 0.05% Nasal Spray 15 ML Bottle NAS ONE (19:55)
[2022-02-03 20:38] VITALS: BP 142/86; PULSE 86
== END 2022-02-03 20:10 | disposition home or self-care (01) ==
LOC: KA.ED 18:00
DX: R51.9 Headache, unspecified (principal); R09.81 Nasal congestion; I10 Essential (primary) hypertension; K21.9 Gastro-esophageal reflux disease without esophagitis; E78.00 Pure hypercholesterolemia, unspecified; I13.0 Hypertensive heart and chronic kidney disease with heart failure and stage 1 through stage 4 chronic kidney disease, or unspecified chronic kidney disease; N18.30 Chronic kidney disease, stage 3 unspecified; I50.9 Heart failure, unspecified; Z95.0 Presence of cardiac pacemaker; Z88.7 Allergy status to serum and vaccine; Z88.5 Allergy status to narcotic agent; Z88.8 Allergy status to other drugs, medicaments and biological substances; Z79.82 Long term (current) use of aspirin; Z79.899 Other long term (current) drug therapy; Z20.822 Contact with and (suspected) exposure to COVID-19
CPT/HCPCS: 36415; 80053; 81001; 83690; 85025; 93010; 96374; 99284; 99284-25; A9270-GY; J2405; U0002

== ENCOUNTER 2022-04-11 08:50 | Emergency (ER) | payer MEDICARE, BC ==
[2022-04-11] MEDS ORDERED: Ondansetron 4 MG/2 ML SDV IVPUSH ONE (09:18)
[2022-04-11] MEDS ORDERED: Sodium Chloride 0.9% 500 ML IV SCH (09:30)
[2022-04-11 10:13] LABS: ANION GAP 12.8 mmol/L (5-15); CHLORIDE,CL 102 mmol/L (98-107); SODIUM,NA 143 mmol/L (136-145)
[2022-04-11 12:28] VITALS: BP 148/84; PULSE 90
== END 2022-04-11 11:05 | disposition home or self-care (01) ==
LOC: KA.ED 08:50
DX: R11.2 Nausea with vomiting, unspecified (principal); D69.6 Thrombocytopenia, unspecified; I13.0 Hypertensive heart and chronic kidney disease with heart failure and stage 1 through stage 4 chronic kidney disease, or unspecified chronic kidney disease; I50.9 Heart failure, unspecified; N18.30 Chronic kidney disease, stage 3 unspecified; K21.9 Gastro-esophageal reflux disease without esophagitis; Z90.49 Acquired absence of other specified parts of digestive tract; Z90.710 Acquired absence of both cervix and uterus; Z79.899 Other long term (current) drug therapy; Z79.82 Long term (current) use of aspirin; Z88.4 Allergy status to anesthetic agent; Z88.5 Allergy status to narcotic agent; Z88.6 Allergy status to analgesic agent
CPT/HCPCS: 36415; 71045; 80053; 83605; 83690; 85025; 93005; 96361; 96374; 99284; J2405; J7040

== ENCOUNTER 2022-04-25 10:20 | Emergency (ER) | payer MEDICARE, BC ==
[2022-04-25 10:53] VITALS: BP 145/71; PULSE 98
[2022-04-25 10:55] LABS: ANION GAP 7.4 mmol/L (5-15)
== END 2022-04-25 11:25 | disposition home or self-care (01) ==
LOC: KA.ED 10:20
DX: R30.0 Dysuria (principal); R60.9 Edema, unspecified; I11.0 Hypertensive heart disease with heart failure; I50.9 Heart failure, unspecified; K21.9 Gastro-esophageal reflux disease without esophagitis; Z90.49 Acquired absence of other specified parts of digestive tract; Z90.710 Acquired absence of both cervix and uterus; Z88.4 Allergy status to anesthetic agent; Z88.5 Allergy status to narcotic agent; Z88.6 Allergy status to analgesic agent; Z88.8 Allergy status to other drugs, medicaments and biological substances; Z79.899 Other long term (current) drug therapy; Z79.82 Long term (current) use of aspirin
CPT/HCPCS: 36415; 71045; 80053; 81001; 83880; 84484; 85025; 87086; 87088; 93005; 93010; 99284; 99284-25

== ENCOUNTER 2022-05-07 06:22 | Emergency (ER) | payer MEDICARE, BC ==
[2022-05-07] MEDS: Ondansetron 4 MG/2 ML SDV IM ONE (07:39)
[2022-05-07] MEDS: cefTRIAXone 1 GM Vial IM ONE (07:39)
[2022-05-07 08:10] VITALS: BP 141/98; PULSE 82
== END 2022-05-07 08:09 | disposition home or self-care (01) ==
LOC: KA.ED 06:22
DX: N30.00 Acute cystitis without hematuria (principal); E78.00 Pure hypercholesterolemia, unspecified; I10 Essential (primary) hypertension; K21.9 Gastro-esophageal reflux disease without esophagitis; Z79.899 Other long term (current) drug therapy; Z88.8 Allergy status to other drugs, medicaments and biological substances; Z88.0 Allergy status to penicillin
CPT/HCPCS: 81001; 87086; 87186; 96372; 99283; 99284; J0696; J2405

== ENCOUNTER 2022-06-01 18:15 | Emergency (ER) | payer MEDICARE, BC ==
[2022-06-01] MEDS ORDERED: Sodium Chloride 0.9% 1,000 ML IV ONE (18:34)
[2022-06-01] MEDS ORDERED: Ondansetron 4 MG/2 ML SDV IVPUSH ONE (18:34)
[2022-06-01] MEDS ORDERED: Sodium Chloride 0.9% 10 ML Syringe FLUSH PRN (18:45)
[2022-06-01] MEDS ORDERED: Ondansetron 4 MG/2 ML SDV ONE (18:46)
[2022-06-01 19:04] LABS: ANION GAP 14.1 mmol/L (5-15)
[2022-06-02 00:31] VITALS: PULSE 111
[2022-06-02 00:40] VITALS: BP 135/67
== END 2022-06-01 21:38 | disposition home or self-care (01) ==
LOC: KA.ED 18:15
DX: R11.2 Nausea with vomiting, unspecified (principal); E78.00 Pure hypercholesterolemia, unspecified; I13.0 Hypertensive heart and chronic kidney disease with heart failure and stage 1 through stage 4 chronic kidney disease, or unspecified chronic kidney disease; N18.31 Chronic kidney disease, stage 3a; I50.9 Heart failure, unspecified; Z88.4 Allergy status to anesthetic agent; Z88.5 Allergy status to narcotic agent; Z88.8 Allergy status to other drugs, medicaments and biological substances; Z79.82 Long term (current) use of aspirin; Z79.899 Other long term (current) drug therapy
CPT/HCPCS: 36415; 71045; 80053; 85025; 96361; 96374; 99284-25; J2405; J3490; J7030

== ENCOUNTER 2022-12-27 03:30 | Observation (INO) | payer MEDICARE, BC ==
[2022-12-27] MEDS ORDERED: Ondansetron 4 MG/2 ML SDV ONE (03:46)
[2022-12-27] MEDS ORDERED: Ondansetron 4 MG/2 ML SDV IVPUSH ONE (03:50)
[2022-12-27] MEDS ORDERED: Sodium Chloride 0.9% 1,000 ML IV ONE (04:03)
[2022-12-27] MEDS ORDERED: Sodium Chloride 0.9% 10 ML Syringe FLUSH PRN (04:03)
[2022-12-27 04:30] LABS: ANION GAP 14.5 mmol/L (5-15)
[2022-12-27] MEDS ORDERED: cefTRIAXone 1 GM Vial IVPUSH ONE (05:32)
[2022-12-27] MEDS ORDERED: Promethazine 12.5 MG in Sodium Chloride 0.9% 100 ML IV PRN (05:38)
[2022-12-27] MEDS ORDERED: Promethazine 25 MG/ML SDV ONE (05:45)
[2022-12-27] MEDS ORDERED: Sodium Chloride 0.9% 100 ML ONE (05:46)
[2022-12-27] MEDS ORDERED: Cyclobenzaprine 10 MG Tab PO PRN (09:46)
[2022-12-27] MEDS ORDERED: Promethazine Topical Gel 25mg/0.5 ML Syringe TOP PRN (09:46)
[2022-12-27] MEDS ORDERED: Omeprazole 20 MG Cap.CR **OWN MED PO PRN (09:46)
[2022-12-27] MEDS ORDERED: Diclofenac Sodium 1% Gel 100 GM Tube TOP PRN (09:46)
[2022-12-27] MEDS ORDERED: CARVEDILOL 3.125 MG PO SCH ×2 (10:00→10:43)
[2022-12-27] MEDS ORDERED: MORPHINE ITHECAL SCH (10:00)
[2022-12-27] MEDS ORDERED: LORazepam 0.5 MG Tab **OWN MED PO SCH (10:00)
[2022-12-27] MEDS: LORazepam 0.5 MG Tab **OWN MED PO SCH ×2 (11:14→20:27)
[2022-12-27] MEDS: CARVEDILOL 3.125 MG PO SCH ×2 (11:15→18:04)
[2022-12-27] MEDS: Furosemide 40 MG Tab **OWN MED PO SCH (11:15)
[2022-12-27] MEDS: POTASSIUM CHLORIDE 10 MEQ PO SCH (11:15)
[2022-12-27] MEDS: Calcium Citrate/Vitamin D3 315 MG-250 Unit Tab PO SCH (11:16)
[2022-12-27] MEDS: LISINOPRIL 30 MG PO SCH (11:16)
[2022-12-27] MEDS: Aspirin 325 MG Tab.EC PO SCH (11:16)
[2022-12-27] MEDS: PROMETHAZINE TOP PRN (13:35)
[2022-12-27] MEDS ORDERED: Sodium Chloride 0.9% 1,000 ML IV SCH (14:15)
[2022-12-27] MEDS: Acetaminophen 325 MG Tab PO PRN (15:05)
[2022-12-27] MEDS: Magnesium Oxide 500 MG Tab PO SCH (20:14)
[2022-12-27] MEDS: CRANBERRY 500 MG PO SCH (20:26)
[2022-12-28] MEDS: CARVEDILOL 3.125 MG PO SCH ×2 (08:16→17:59)
[2022-12-28] MEDS: LISINOPRIL 30 MG PO SCH (08:17)
[2022-12-28] MEDS: CRANBERRY 500 MG PO SCH ×2 (08:17→20:03)
[2022-12-28] MEDS: POTASSIUM CHLORIDE 10 MEQ PO SCH (08:17)
[2022-12-28] MEDS: Calcium Citrate/Vitamin D3 315 MG-250 Unit Tab PO SCH (08:17)
[2022-12-28] MEDS: Aspirin 325 MG Tab.EC PO SCH (08:17)
[2022-12-28] MEDS: Furosemide 40 MG Tab **OWN MED PO SCH (08:26)
[2022-12-28] MEDS: LORazepam 0.5 MG Tab **OWN MED PO SCH ×2 (08:27→20:17)
[2022-12-28 09:56] LABS: ANION GAP 9.1 mmol/L (5-15)
[2022-12-28] MEDS: Acetaminophen 325 MG Tab PO PRN (12:00)
[2022-12-28] MEDS: Amoxicillin/Clavulanate K 500-125 MG Tab PO SCH ×2 (12:00→22:10)
[2022-12-28] MEDS: PROMETHAZINE TOP PRN (17:11)
[2022-12-28] MEDS ORDERED: Ibuprofen 200 MG Tab PO ONE (18:07)
[2022-12-28] MEDS: Magnesium Oxide 500 MG Tab PO SCH (20:03)
[2022-12-29] MEDS: Amoxicillin/Clavulanate K 500-125 MG Tab PO SCH ×2 (00:04→11:04)
[2022-12-29] MEDS: Acetaminophen 325 MG Tab PO PRN (00:09)
[2022-12-29 07:43] VITALS: BP 109/35; PULSE 65
[2022-12-29 07:57] LABS: ANION GAP 6.9 mmol/L (5-15)
[2022-12-29] MEDS: Calcium Citrate/Vitamin D3 315 MG-250 Unit Tab PO SCH (08:13)
[2022-12-29] MEDS: POTASSIUM CHLORIDE 10 MEQ PO SCH (08:13)
[2022-12-29] MEDS: CRANBERRY 500 MG PO SCH (08:13)
[2022-12-29] MEDS: Aspirin 325 MG Tab.EC PO SCH (08:13)
[2022-12-29] MEDS: CARVEDILOL 3.125 MG PO SCH ×2 (08:16→09:03)
[2022-12-29] MEDS: LISINOPRIL 30 MG PO SCH (08:17)
[2022-12-29] MEDS: LORazepam 0.5 MG Tab **OWN MED PO SCH (08:22)
[2022-12-29 08:31] LABS: HEMOGLOBIN A1C 7.7 % (4.3-5.7)
[2022-12-29] MEDS: Furosemide 40 MG Tab **OWN MED PO SCH (08:59)
== END 2022-12-29 11:48 | disposition home or self-care (01) ==
LOC: KA.ED 03:30 → KA.MS 05:35 → UNDOADMOB 05:35 → KA.MS 05:43
PROVIDERS: ADMIT Nurse Practitioner Family; ATTEND Nurse Practitioner Family
DX: N30.00 Acute cystitis without hematuria (principal); I12.9 Hypertensive chronic kidney disease with stage 1 through stage 4 chronic kidney disease, or unspecified chronic kidney disease; N18.31 Chronic kidney disease, stage 3a; R73.9 Hyperglycemia, unspecified; F41.9 Anxiety disorder, unspecified; E87.6 Hypokalemia; E78.00 Pure hypercholesterolemia, unspecified; K21.9 Gastro-esophageal reflux disease without esophagitis; M81.0 Age-related osteoporosis without current pathological fracture; M19.90 Unspecified osteoarthritis, unspecified site; G43.909 Migraine, unspecified, not intractable, without status migrainosus; Z79.899 Other long term (current) drug therapy; Z79.82 Long term (current) use of aspirin; Z88.5 Allergy status to narcotic agent; Z88.8 Allergy status to other drugs, medicaments and biological substances; Z98.890 Other specified postprocedural states; Z90.49 Acquired absence of other specified parts of digestive tract; Z96.649 Presence of unspecified artificial hip joint; Z96.659 Presence of unspecified artificial knee joint; Z96.619 Presence of unspecified artificial shoulder joint; Z95.0 Presence of cardiac pacemaker
CPT/HCPCS: 36415; 71046; 74021; 80048; 80053; 81001; 82150; 83036; 83605; 83690; 83735; 83880; 84484; 85025; 86140; 87086; 87088; 87186; 93005; 93010; 96361; 96365; 96375; 99284; 99284-25; A9270-GY; G0378; J0696; J2405; J2550; J7030

== ENCOUNTER 2023-01-01 18:35 | Emergency (ER) | payer MEDICARE, BC ==
[2023-01-01 19:09] VITALS: BP 149/70; PULSE 82
[2023-01-01 19:23] LABS: ANION GAP 11.1 mmol/L (5-15)
== END 2023-01-01 20:22 | disposition home or self-care (01) ==
LOC: KA.ED 18:35
DX: I13.0 Hypertensive heart and chronic kidney disease with heart failure and stage 1 through stage 4 chronic kidney disease, or unspecified chronic kidney disease (principal); N18.31 Chronic kidney disease, stage 3a; I50.9 Heart failure, unspecified; E78.00 Pure hypercholesterolemia, unspecified; K21.9 Gastro-esophageal reflux disease without esophagitis; M19.90 Unspecified osteoarthritis, unspecified site; Z88.4 Allergy status to anesthetic agent; Z88.5 Allergy status to narcotic agent; Z79.82 Long term (current) use of aspirin; Z79.899 Other long term (current) drug therapy
CPT/HCPCS: 71045; 80053; 83880; 84484; 85025; 93005; 93010; 99284; 99285

== ENCOUNTER 2023-04-29 07:29 | Emergency (ER) | payer MEDICARE, BC ==
[2023-04-29] MEDS: Ondansetron 4 MG/2 ML SDV ONE ×2 (08:05→09:42)
[2023-04-29] MEDS: Sodium Chloride 0.9% 1,000 ML ONE ×2 (08:05→09:41)
[2023-04-29] MEDS ORDERED: Sodium Chloride 0.9% 1,000 ML IV SCH (08:05)
[2023-04-29] MEDS ORDERED: Ondansetron 4 MG/2 ML SDV IVPUSH ONE (08:10)
[2023-04-29 08:28] LABS: BASOPHILS ABSOLUTE AUTO 0.02 10^3/uL (0.00-0.10); BASOPHILS PERCENT AUTO 0.4 % (0.0-1.0); EOSINOPHILS ABSOLUTE AUTO 0.14 10^3/uL (0.10-0.30); EOSINOPHILS PERCENT AUTO 3.1 % (1.0-3.0); HEMATOCRIT 43.8 % (37.0-47.0); HEMOGLOBIN 14.2 g/dL (12.0-16.0); LYMPHOCYTES ABSOLUTE AUTO 1.27 10^3/uL (1.00-4.00); LYMPHOCYTES PERCENT AUTO 28.1 % (20.0-40.0); MEAN CORPUSCULAR HEMOGLOBIN 29.1 pg (27.0-31.0); MEAN CORPUSCULAR HGB CONC 32.4 g/dL (32.0-36.0); MEAN CORPUSCULAR VOLUME 89.8 fL (82.0-92.0); MEAN PLATELET VOLUME 11.7 fL (7.4-10.4); MONOCYTES PERCENT AUTO 13.3 % (2.0-8.0); NEUTROPHILS ABSOLUTE AUTO 2.49 10^3/uL (2.50-7.00); NEUTROPHILS PERCENT AUTO 55.1 % (50.0-70.0); PLATELET COUNT,PLT 157 10^3/uL (150-400); RED BLOOD CELL COUNT 4.88 10^6/uL (3.80-5.50); WHITE BLOOD CELL COUNT,WBC 4.52 10^3/uL (5.00-10.00)
[2023-04-29 08:35] LABS: ALBUMIN 3.43 g/dL (3.40-5.00); ANION GAP 8.8 mmol/L (5-15); BILIRUBIN TOTAL 0.5 mg/dL (0.2-1.0); CALCIUM 8.8 mg/dL (8.7-10.3); CREATININE 0.85 mg/dL (0.51-1.17); EST CRCL DRUG DOSING (CG) 32.23 mL/min; POTASSIUM,K 3.8 mmol/L (3.5-5.1); PROTEIN TOTAL,TP 7.3 g/dL (6.4-8.2)
[2023-04-29 08:44] LABS: LACTIC ACID 1.3 mmol/L (0.4-2.0)
[2023-04-29 08:56] VITALS: BP 130/58
[2023-04-29 09:06] VITALS: PULSE 79
== END 2023-04-29 09:15 | disposition home or self-care (01) ==
LOC: KA.ED 07:29
DX: R11.0 Nausea (principal); I13.0 Hypertensive heart and chronic kidney disease with heart failure and stage 1 through stage 4 chronic kidney disease, or unspecified chronic kidney disease; N18.31 Chronic kidney disease, stage 3a; I50.9 Heart failure, unspecified; K21.9 Gastro-esophageal reflux disease without esophagitis; M19.90 Unspecified osteoarthritis, unspecified site; E66.9 Obesity, unspecified; Z68.33 Body mass index [BMI] 33.0-33.9, adult; Z88.4 Allergy status to anesthetic agent; Z88.5 Allergy status to narcotic agent; Z88.8 Allergy status to other drugs, medicaments and biological substances; Z79.82 Long term (current) use of aspirin; Z79.899 Other long term (current) drug therapy
CPT/HCPCS: 80053; 82150; 83605; 83690; 83880; 84484; 85025; 93010; 96361; 96374; 99284; 99284-25; J2405; J7030